=== PATIENT | female | born 1940 | race Caucasian/White ===

== ENCOUNTER → 2016-03-19 | Outpatient (CLI) | payer MEDICARE ==
[~2016-03-19] MED LIST: /AMIO20TA PO; /AMLO25TA PO; /ESOM40CA PO; /QUIN10TA PO; ACET50TA PO; ASPI1TAB PO; ASPI325T PO; ATEN25TA PO; B-6; BEN1.4DI TOP; BISO5TAB5 PO; CALCTAB22 PO; CLAR10CA3 PO; CLOP75TA2 PO; ELIQ5TAB PO; FLON0.054; ICY16LIQ TD; IMDU30TA PO; LEVO25TA2 PO; MIRA3350 PO; MIRALEX PO; MULTIVIT; NITR0.4S SL; OTC ALLERGY MED; PROBCAP13; PROT1TAB2 PO; SPIR25TA2 PO; TUMS500C PO; VITA50TA43 PO; VOLT1GEL TOP; VOLT1GEL24 TD; ZOLO25TA PO; [UNRECOGNIZED DRUG - OTHER]; [UNRECOGNIZED DRUG - OTHER] PO
[2016-03-19 10:06] LABS: ALBUMIN 3.6 GM/DL (3.2-5.2); ALBUMIN/GLOBULIN RATIO 1.16 (1.00-1.93); ALKALINE PHOSPHATASE 70 U/L (45-117); ALT/SGPT 21 U/L (12-78); ANION GAP 10 MEQ/L (8-16); AST/SGOT 17 U/L (15-37); BILIRUBIN,TOTAL 0.5 MG/DL (0.2-1.0); BLOOD UREA NITROGEN 17 MG/DL (7-18); CALCIUM LEVEL 8.9 MG/DL (8.8-10.2); CARBON DIOXIDE LEVEL 26 MEQ/L (21-32); CHLORIDE LEVEL 108 MEQ/L (98-107); CREATININE FOR GFR 0.92 MG/DL (0.55-1.02); GLOMERULAR FILTRATION RATE > 60.0 (>39); GLUCOSE, FASTING 135 MG/DL (83-110); MAGNESIUM LEVEL 2.1 MG/DL (1.8-2.4); POTASSIUM SERUM 4.3 MEQ/L (3.5-5.1); SODIUM LEVEL 144 MEQ/L (136-145); TOTAL PROTEIN 6.7 GM/DL (6.4-8.2)
== END ==
LOC: M LAB 09:17
PROVIDERS: ATTEND Physician Assistant
DX: I48.0 Paroxysmal atrial fibrillation (principal); I10 Essential (primary) hypertension

== ENCOUNTER → 2016-04-29 | Outpatient (CLI) | payer MEDICARE ==
[2016-04-29 08:22] LABS: MEAN CORPUSCULAR HEMOGLOBIN 31.6 pg (27.0-33.0); MEAN CORPUSCULAR HGB CONC 32.5 g/dl (32.0-36.5); MEAN CORPUSCULAR VOLUME 97.2 fl (80.0-96.0); RED CELL DISTRIBUTION WIDTH 13.9 % (11.5-14.5); WHITE BLOOD COUNT 4.9 K/mm3 (4.0-10.0)
== END ==
LOC: M LAB 07:23
PROVIDERS: ATTEND Physician Assistant
DX: I48.0 Paroxysmal atrial fibrillation (principal)

== ENCOUNTER → 2016-05-11 | Outpatient (CLI) | payer MEDICARE ==
[2016-05-11 08:02] LABS: FREE T4 1.05 NG/DL (0.76-1.46)
== END ==
LOC: M LAB 06:35
PROVIDERS: ATTEND Family Medicine
DX: E03.9 Hypothyroidism, unspecified (principal)

== ENCOUNTER → 2016-06-26 | Outpatient (CLI) | payer MEDICARE ==
[2016-06-26 12:16] LABS: MEAN CORPUSCULAR HEMOGLOBIN 31.2 pg (27.0-33.0); MEAN CORPUSCULAR HGB CONC 32.2 g/dl (32.0-36.5); MEAN CORPUSCULAR VOLUME 96.8 fl (80.0-96.0); RED CELL DISTRIBUTION WIDTH 14.2 % (11.5-14.5); WHITE BLOOD COUNT 4.9 K/mm3 (4.0-10.0)
[2016-06-26 12:56] LABS: ALBUMIN 3.5 GM/DL (3.2-5.2); ALBUMIN/GLOBULIN RATIO 1.06 (1.00-1.93); ALKALINE PHOSPHATASE 74 U/L (45-117); ALT/SGPT 23 U/L (12-78); ANION GAP 8 MEQ/L (8-16); AST/SGOT 17 U/L (15-37); BILIRUBIN,TOTAL 0.5 MG/DL (0.2-1.0); BLOOD UREA NITROGEN 15 MG/DL (7-18); CALCIUM LEVEL 8.5 MG/DL (8.8-10.2); CARBON DIOXIDE LEVEL 26 MEQ/L (21-32); CHLORIDE LEVEL 108 MEQ/L (98-107); FREE T4 1.25 NG/DL (0.76-1.46); GLOMERULAR FILTRATION RATE > 60.0 (>39); GLUCOSE, FASTING 110 MG/DL (83-110); POTASSIUM SERUM 4.4 MEQ/L (3.5-5.1); SODIUM LEVEL 142 MEQ/L (136-145); TOTAL PROTEIN 6.8 GM/DL (6.4-8.2)
== END ==
LOC: M LAB 11:09
PROVIDERS: ATTEND Family Medicine
DX: E03.9 Hypothyroidism, unspecified (principal)

== ENCOUNTER → 2016-10-14 | Outpatient (CLI) | payer MEDICARE ==
[~2016-10-14] MED LIST changes: +ASPI1TAB15 PO; +ASPI81TA85 PO; +CIME-49 PO; +DOXY100T PO; +FLON1SPR; +GLUC500T53 PO; +KEFL250C11 PO; +LEVO100T54 PO; +MAALSUS20 PO; +MIRA33504 PO; +NITR4TASL SL; +PANT40TA2 PO; +PEPT262S PO; +POLY1POW4 GT; +PRED20TA; +PROC2.5C PR; +PYRI100T2 PO; +QUIN5TAB7; +QUIN5TAB7 PO; +REGL5TAB2 PO; +TYLE325T5 PO; +VITA10002 PO; +VOLT1GEL15 TD; -VOLT1GEL24 TD; +ZOFR20TA PO; +iron PO
[2016-10-14 08:44] LABS: MEAN CORPUSCULAR HEMOGLOBIN 35.6 pg (27.0-33.0); MEAN CORPUSCULAR HGB CONC 33.6 g/dl (32.0-36.5); WHITE BLOOD COUNT 2.3 K/mm3 (4.0-10.0)
[2016-10-14 08:56] LABS: ALBUMIN 3.5 GM/DL (3.2-5.2); ALBUMIN/GLOBULIN RATIO 1.03 (1.00-1.93); ALKALINE PHOSPHATASE 64 U/L (45-117); ALT/SGPT 18 U/L (12-78); ANION GAP 9 MEQ/L (8-16); AST/SGOT 15 U/L (15-37); BILIRUBIN,TOTAL 0.7 MG/DL (0.2-1.0); BLOOD UREA NITROGEN 15 MG/DL (7-18); CALCIUM LEVEL 8.8 MG/DL (8.8-10.2); CARBON DIOXIDE LEVEL 27 MEQ/L (21-32); CHLORIDE LEVEL 108 MEQ/L (98-107); CHOLESTEROL LEVEL 211 MG/DL (<200); CREATININE FOR GFR 0.84 MG/DL (0.55-1.02); GLOMERULAR FILTRATION RATE > 60.0 (>39); GLUCOSE, FASTING 110 MG/DL (83-110); POTASSIUM SERUM 4.5 MEQ/L (3.5-5.1); SODIUM LEVEL 144 MEQ/L (136-145); TOTAL PROTEIN 6.9 GM/DL (6.4-8.2); TRIGLYCERIDES LEVEL 284 MG/DL (<150)
== END ==
LOC: M LAB 07:47
PROVIDERS: ATTEND Physician Assistant
DX: I48.2 Chronic atrial fibrillation (principal); I25.10 Atherosclerotic heart disease of native coronary artery without angina pectoris; E78.2 Mixed hyperlipidemia; I10 Essential (primary) hypertension

== ENCOUNTER 2016-10-17 10:56 | Inpatient (IN) | payer MEDICARE ==
[~2016-10-17] VITALS: Ht 162.6 cm; Wt 100.5 kg
[~2016-10-17 10:56] MED LIST changes: -ASPI1TAB15 PO; -ASPI81TA85 PO; -CIME-49 PO; -DOXY100T PO; -FLON1SPR; -GLUC500T53 PO; -KEFL250C11 PO; -LEVO100T54 PO; -MAALSUS20 PO; -MIRA33504 PO; -NITR4TASL SL; -PANT40TA2 PO; -PEPT262S PO; -POLY1POW4 GT; -PRED20TA; -PROC2.5C PR; -PYRI100T2 PO; -QUIN5TAB7; -QUIN5TAB7 PO; -REGL5TAB2 PO; -TYLE325T5 PO; -VITA10002 PO; -ZOFR20TA PO; -iron PO
[2016-10-17 12:02] LABS: ADD MANUAL DIFFER YES; DIFF SLIDE NUMBER 122; MEAN CORPUSCULAR HEMOGLOBIN 35.2 pg (27.0-33.0); MEAN CORPUSCULAR HGB CONC 34.1 g/dl (32.0-36.5); MEAN CORPUSCULAR VOLUME 103.3 fl (80.0-96.0); RED CELL DISTRIBUTION WIDTH 17.1 % (11.5-14.5); WHITE BLOOD COUNT 2.1 K/mm3 (4.0-10.0)
[2016-10-17 12:03] LABS: PLATELET COUNT, AUTOMATED 70 k/mm3 (150-450)
[2016-10-17 12:04] LABS: INR 1.14
[2016-10-17 12:24] LABS: ALBUMIN 3.6 GM/DL (3.2-5.2); ALBUMIN/GLOBULIN RATIO 1.03 (1.00-1.93); ALKALINE PHOSPHATASE 72 U/L (45-117); ALT/SGPT 22 U/L (12-78); ANION GAP 9 MEQ/L (8-16); AST/SGOT 24 U/L (15-37); BILIRUBIN,TOTAL 0.5 MG/DL (0.2-1.0); BLOOD UREA NITROGEN 18 MG/DL (7-18); CALCIUM LEVEL 9.1 MG/DL (8.8-10.2); CARBON DIOXIDE LEVEL 26 MEQ/L (21-32); CHLORIDE LEVEL 109 MEQ/L (98-107); CREATININE FOR GFR 0.82 MG/DL (0.55-1.02); GLOMERULAR FILTRATION RATE > 60.0 (>39); GLUCOSE, FASTING 136 MG/DL (83-110); POTASSIUM SERUM 4.7 MEQ/L (3.5-5.1); SODIUM LEVEL 144 MEQ/L (136-145); TOTAL PROTEIN 7.1 GM/DL (6.4-8.2)
[2016-10-17 13:05] LABS: EOSINOPHILS 3 % (0-5)
[2016-10-17 13:06] LABS: ANISOCYTOSIS 1+; PLATELET CLUMPS MODERATE AMT; POLYCHROMASIA 1+
[2016-10-17] MEDS: NS 1,000 ML IV SCH (14:01)
[2016-10-17] MEDS ORDERED: NITR4TASL SL (14:02)
[2016-10-17] MEDS ORDERED: TYLE325T5 PO (14:02)
[2016-10-17] MEDS ORDERED: SPIR25TA2 PO (14:02)
[2016-10-17] MEDS ORDERED: QUIN5TAB7 PO (14:02)
[2016-10-17] MEDS ORDERED: BISO5TAB5 PO (14:02)
[2016-10-17] MEDS ORDERED: CIME-49 PO (14:02)
[2016-10-17] MEDS ORDERED: GLUC500T53 PO (14:02)
[2016-10-17] MEDS ORDERED: PYRI100T2 PO (14:02)
[2016-10-17] MEDS ORDERED: PANT40TA2 PO (14:02)
[2016-10-17] MEDS ORDERED: LEVO100T54 PO (14:02)
[2016-10-17] MEDS ORDERED: ASPI1TAB15 PO (14:02)
[2016-10-17] MEDS ORDERED: ELIQ5TAB PO (14:02)
[2016-10-17] MEDS ORDERED: NITROGLYCERIN 0.4 MG SUBL TABLET SL PRN (14:15)
[2016-10-17] MEDS: ACETAMINOPHEN 325 MG TAB PO PRN ×2 (14:34→20:36)
[2016-10-17 16:35] VITALS: BP 132/60
[2016-10-17 19:09] VITALS: BP 120/70
[2016-10-17] MEDS: PANTOPRAZOLE 40MG INJ (PROTONIX) (C9113) IV SCH (20:35)
[2016-10-17] MEDS: BISOPROLOL FUMARATE 5 MG TAB PO SCH (20:36)
[2016-10-17 23:41] LABS: MEAN CORPUSCULAR HEMOGLOBIN 35.3 pg (27.0-33.0); MEAN CORPUSCULAR HGB CONC 33.7 g/dl (32.0-36.5); MEAN CORPUSCULAR VOLUME 104.9 fl (80.0-96.0); RED CELL DISTRIBUTION WIDTH 16.7 % (11.5-14.5); WHITE BLOOD COUNT 2.4 K/mm3 (4.0-10.0)
[2016-10-17 23:57] VITALS: BP 130/70
[2016-10-18 04:48] VITALS: BP 142/72
[2016-10-18 05:48] LABS: MEAN CORPUSCULAR HEMOGLOBIN 35.6 pg (27.0-33.0); MEAN CORPUSCULAR HGB CONC 33.5 g/dl (32.0-36.5); MEAN CORPUSCULAR VOLUME 106.2 fl (80.0-96.0); RED CELL DISTRIBUTION WIDTH 17.1 % (11.5-14.5); WHITE BLOOD COUNT 2.8 K/mm3 (4.0-10.0)
[2016-10-18 05:54] LABS: ANION GAP 8 MEQ/L (8-16); BLOOD UREA NITROGEN 12 MG/DL (7-18); CALCIUM LEVEL 8.5 MG/DL (8.8-10.2); CARBON DIOXIDE LEVEL 26 MEQ/L (21-32); CHLORIDE LEVEL 111 MEQ/L (98-107); CREATININE FOR GFR 0.86 MG/DL (0.55-1.02); GLOMERULAR FILTRATION RATE > 60.0 (>39); GLUCOSE, FASTING 95 MG/DL (83-110); POTASSIUM SERUM 4.1 MEQ/L (3.5-5.1); SODIUM LEVEL 145 MEQ/L (136-145)
--- NOTE | 2016-10-18 06:43 | CR ---
DATE OF CONSULTATION: 10/17/2016 REASON FOR CONSULTATION: Was gastrointestinal (GI) bleeding. HISTORY OF PRESENT ILLNESS: The patient is a 76-year-old female who has been on anticoagulation with aspirin as well as Eliquis as an outpatient for some atrial fibrillation. She presents with some epistaxis that happened a few days ago that was able to be controlled with pressure and presents with some bright red blood per rectum that occurred yesterday and then again this morning. Initially she had some darker stool after the epistaxis, but she is no longer complaining of dark stool, it is mostly bright red blood per rectum. She did have a barium enema about 10 or 11 years ago that showed some diverticulosis but no colonoscopy has been performed. No upper GI with small-bowel followthrough or upper endoscopy has been performed. She does have some GE reflux symptoms for which she takes a proton pump inhibitor. She has been nervous about having an endoscopy performed because sedating medications make her unfocused. In any case, she presents now for additional recommendations concerning this. She does not complain of any abdominal pain at this time, has not had no nausea, no vomiting, no fevers, no chills. She does not have any history of diverticulitis. She presents with a pancytopenia of undetermined etiology. PAST MEDICAL HISTORY: Significant for history of hypertension, history of atrial fibrillation, history of arthritis, history of GE reflux. MEDICATIONS: Include: - quinapril - glucosamine - cimetidine - spironolactone - vitamin B6 - pantoprazole - aspirin - Eliquis PHYSICAL EXAMINATION: Reveals a 76-year-old female who looks her stated age. HEENT is unremarkable. Neck: Supple without adenopathy. Lungs are clear to auscultation. Heart is regular with multiple irregular beats. Abdomen is soft, nontender, nondistended. No masses are appreciated. IMPRESSION AND PLAN: Patient has GI bleed most likely secondary to a lower GI source, although with her pancytopenia this needs to be resolved prior to proceeding with an upper or lower endoscopy. I would recommend an upper and lower endoscopy for her at some point but without resolution of this pancytopenia and specifically this thrombocytopenia, my concern is with the minimal amount of aspirin that she is on she will have no significant platelet function whatsoever. And thus we may have to wait up to a week before proceeding with endoscopy, unless this resolves over the ensuing few days. The Eliquis itself should be worked out of the system within the next 48 hours and depending on how she does, we may proceed with an upper and lower endoscopy prior to discharge but for now she can start on a clear liquid diet. If she is doing well and her hematocrit is stable overnight, she can start on a regular diet tomorrow. If she does well with this and her hematocrit is stable, she could be discharged home and then we could followup with an outpatient endoscopy in the near future. Otherwise she can stay in house and later on this week we can plan on an upper and lower endoscopy and we will try to be flexible about the timing of that as well.
--- NOTE | 2016-10-18 07:57 | ECGEPIP ---
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
[2016-10-18 08:00] VITALS: BP 130/72
[2016-10-18] MEDS: BISOPROLOL FUMARATE 5 MG TAB PO SCH ×2 (08:06→20:15)
[2016-10-18] MEDS: PANTOPRAZOLE 40MG INJ (PROTONIX) (C9113) IV SCH ×2 (08:06→20:20)
[2016-10-18] MEDS: LEVOTHYROXINE 100MCG TABLET (0.1MG) PO SCH (08:06)
[2016-10-18 08:56] LABS: PLTBLUE- EDTA FREE CALC 55 K/mm3 (172-450); PLTBLUE- EDTA FREE MACHINE 50 K/mm3 (172-450)
[2016-10-18 09:31] LABS: REASON FOR REVIEW COMPREHENSIVE REVIEW
[2016-10-18 11:09] VITALS: BP 118/60
[2016-10-18 11:22] LABS: MEAN CORPUSCULAR HEMOGLOBIN 35.8 pg (27.0-33.0); MEAN CORPUSCULAR HGB CONC 34.1 g/dl (32.0-36.5); MEAN CORPUSCULAR VOLUME 104.9 fl (80.0-96.0); RED CELL DISTRIBUTION WIDTH 17.1 % (11.5-14.5); WHITE BLOOD COUNT 2.1 K/mm3 (4.0-10.0)
[2016-10-18] MEDS: NS 1,000 ML IV SCH (12:30)
[2016-10-18 16:00] VITALS: BP 132/60
--- NOTE | 2016-10-18 17:39 | IPN ---
DATE: 10/18/2016 SUBJECTIVE: The patient is seen and examined in the room today. The patient has been walking around the hallway in the morning. Denies any recurrence of symptoms. Since admission, the patient denied any blood in the stool. She states she is actually feeling better than before the admission. OBJECTIVE: VITAL SIGNS: Temperature is 96.1, pulse 57, respirations 19, blood pressure 130/72, pulse oximetry 94% on room air. GENERAL: No sign of acute distress. Alert and oriented times three. HEENT: Normocephalic, atraumatic. Extraocular motor grossly intact. CARDIOVASCULAR: Irregularly irregular. Positive S1, S2. LUNGS: Clear to auscultation bilaterally. ABDOMEN: Soft. Nontender. EXTREMITIES: No edema. No cyanosis. LABORATORY DATA: WBC 2.8, hemoglobin 10.8, hematocrit 32.3, platelet count 55. Sodium 145, potassium 4.1, chloride 111, carbon dioxide 26, BUN 12, creatinine 0.86, GFR greater than 60, fasting glucose 95, calcium 8.5. ASSESSMENT AND PLAN: 1. Acute lower gastrointestinal (GI) bleed. Aspirin and Eliquis have been discontinued. The patient is monitored on telemetry. The patient's hemoglobin and hematocrit have been followed every six hours. At this moment, there is no significant decrease of hemoglobin or hematocrit. Since admission, the patient does not have any bowel movements. 2. Pancytopenia, especially with severe leukopenia and thrombocytopenia. Yesterday night and this morning, the patient's platelet count cannot be calculated. Ethylenediaminetetraacetic acid (EDTA) solution had to be used. Repeated tests showed the patient's had platelet count is 55. We will obtain a peripheral smear. Unfortunately, pathologist not available at this moment. We will follow with the results tomorrow. 3. Atrial fibrillation on Zebeta. Rate is in the satisfactory range. Eliquis discontinued due to acute GI bleed. 4. Gastroesophageal reflux disease, on Protonix. 5. Hypothyroidism, on Synthroid. 6. History of hypertension on Zebeta. 7. Deep venous thrombosis (DVT) prophylaxis. The patient had acute GI bleed. No anticoagulation is warranted at this moment. Patient has knee-high thromboembolism deterrent stockings (TEDs) and sequentials.
[2016-10-18 20:00] VITALS: BP 159/74
[2016-10-18] MEDS: ACETAMINOPHEN 325 MG TAB PO PRN (20:23)
--- NOTE | 2016-10-18 21:38 | HPE ---
DATE OF ADMISSION: 10/17/2016 CHIEF COMPLAINT: 76-year-old female coming in complaining of history of epistaxis and GI bleeding three days ago, and new onset of GI bleeding today. HISTORY OF PRESENT ILLNESS: This is a 76-year-old female with significant past medical history of coronary artery disease, atrial fibrillation with medication aspirin and Eliquis as patient has a history of eight stents in the past with comorbidities of hypothyroidism, gastroesophageal reflux disease, hypertension, who presented complaining of epistaxis three days, which resolved with pressure along with bright red per rectum bleed times two three days ago, in addition times two this morning. Patient denies any fever, chills, cough, sputum production, abdominal pain, diarrhea or dysuria. Patient also denies any shortness of breath, chest pain or dizziness associated with this as well. Patient other than having bright red per rectum denies of any complaint of the epistaxis, and that occurred three days ago as well. Patient was evaluated in the emergency room, noted to have anemia of 10.7 and 31.2 which did not change significantly from the previous lab that was done a couple of days ago. In addition, hemoccult that was positive for blood and hemorrhoid. Dr. Otero was consulted by the ER physician. I have also spoken to Dr. Otero who is willing to follow along with this regarding patient's care. Patient denies of any history of thrombocytopenia. Currently patient is resting comfortably in the emergency room with the family at this bed side. The patient denies any over the counter medication such as naproxen, NSAIDs. Patient also denies of any alcohol abuse or use. REVIEW OF SYSTEMS: 10-point review of systems is negative except for this described in the history of present illness. PAST MEDICAL HISTORY: Significant for coronary artery disease, atrial fibrillation, hyperthyroidism, gastroesophageal reflux disease, hypertension. PAST SURGICAL HISTORY: Includes eight stents in the past, cholecystectomy and tonsillectomy. SOCIAL HISTORY: Patient denies smoking, drinking or drug abuse. FAMILY HISTORY: Non-contributory due to patient's age. ALLERGIES: Patient is allergic to CODEINE, MORPHINE, and PROPOXYPHENE and XANTHIOL. Patient statues that general anesthesia causes her to hallucinate and see into the future mainly for her children. Currently no visual hallucination. Again denies of any alcohol use at home. Patient at home takes - acetaminophen 325 mg two tablets by mouth every 6 hours as needed for pain - Eliquis 5mg by mouth twice a day - aspirin 81 mg by mouth daily - bisoprolol 5 mg by mouth twice a day - cimetidine 400 mg by mouth daily - glucosamine 500 mg by mouth twice a day - levothyroxine 100 mcg by mouth daily - Nitrostat 0.4 mg sublingual as needed for chest pain - pantoprazole 40 mg by mouth daily - vitamin D 600 mg by mouth daily - Quinapril 2.5 mg by mouth at bedtime - spironolactone 12.5 mg by mouth daily PHYSICAL EXAMINATION: VITAL SIGNS temperature 96.8, heart rate of 62 currently, last respiratory rate of 20, currently 18 on my examination. Blood pressure last known is 125/63. Orthostatic showed blood pressure 145/61, with heart rate of 91, supine blood pressure 149/65 with heart rate of 93 sitting. Standing patients blood pressure is 148/67 with a heart rate of 94. Patient is saturating above 90% on room air, currently saturating 96%. HEENT: Normocephalic, atraumatic. Inspection of the eyes, nose and throat is within normal. Pupils equal, round, and reactive to light and accommodation. Mucosa is moist. NECK: Supple. No tracheal deviation. CARDIAC: S1, S2. Regular rate and rhythm. Pulses present. LUNGS: Equal air entry. I did not hear any wheezes, rales or rhonchi. ABDOMEN: Soft, nontender. Bowel sounds present. No guarding, no rigidity. No peritoneal sign. EXTREMITIES: Lower extremities with no significant pitting edema. Capillary refill present in four extremities. SKIN: Intact, warm to touch. Afebrile. NEUROLOGIC: The patient is currently awake, alert, and oriented times three. Cranial nerves grossly intact. Motor and sensory is intact. Normal mood and affect for current situation. Daughter at the bed side. DIAGNOSTICS: Patient had WBC of 2.2, H H 10.7/31.2, platelet count of 70. Currently not actively bleeding. Complete metabolic profile is within normal except for glucose of 136 and <<5:25>> of 109. Cardiac enzyme: Troponin are within normal as well. Coagulation studies: INR and PTT is within normal, PT is 14.8. Patient did have a previous lab work done in October 14 of this year which is only three days ago. Patient's WBC was 2.3 at that time, H H 10.3/30.7, platelet count of 65. No microbiology or imaging for me to review at this time. ASSESSMENT AND PLAN: This is a pleasant 76-year-old female with significant past medical history of coronary artery disease, atrial fibrillation on aspirin and Plavix as patient has history of eight stents in the past, follows Dr. Alicea as an outpatient for her cardiac issues with comorbidities of hypothyroidism, gastroesophageal reflux disease and hypertension who presented complaining of epistaxis and GI bleeding three days ago, and repeat GI bleeding today. 1. Lower GI bleeding most likely secondary due to anticoagulation therapy of aspirin and Eliquis. Patient will be monitored on telemetry. We will get serial cardiac enzymes, transfuse platelet and red blood cell as needed. Consent in the chart. Occult stool for further evaluation. Protonix. Patient has been typed and screened. I had spoken to Dr. Otero who is willing to co-manage patient with us. Patient did not seem to have history of thrombocytopenia or leukopenia. I suspect this is secondary due to current issue. But looking at the liver function, it is within normal. INR is within normal. I do not suspect liver disease to help contribute to immunoglobulinopathy such as thrombocytopenia. We will continue to treat as mentioned above and monitor. Hematology/Oncology consult PRN. 2. Coronary artery disease and atrial fibrillation. Hold aspirin and Eliquis. We will utilize bisoprolol with parameters. Defer statin therapy to cardiology. 3. Hypertension. Bisoprolol with parameters. At this time we will hold lisinopril and spironolactone for now and re-initiate as needed. 4. Hypothyroidism. Resume levothyroxine. 5. Gastroesophageal reflux disease. Protonix. 6. Sequential compression devices (SCDs) for deep vein thrombosis prophylaxis. [facility]
[2016-10-18 23:59] VITALS: BP 147/67
[2016-10-19 04:00] VITALS: BP 156/76
[2016-10-19 05:38] LABS: MEAN CORPUSCULAR HEMOGLOBIN 35.5 pg (27.0-33.0); MEAN CORPUSCULAR VOLUME 104.3 fl (80.0-96.0); RED CELL DISTRIBUTION WIDTH 17.3 % (11.5-14.5); WHITE BLOOD COUNT 2.1 K/mm3 (4.0-10.0)
[2016-10-19 05:43] LABS: PLTBLUE- EDTA FREE CALC 85 K/mm3 (172-450); PLTBLUE- EDTA FREE MACHINE 77 K/mm3 (172-450)
[2016-10-19 05:46] LABS: ANION GAP 9 MEQ/L (8-16); BLOOD UREA NITROGEN 16 MG/DL (7-18); CALCIUM LEVEL 8.4 MG/DL (8.8-10.2); CARBON DIOXIDE LEVEL 25 MEQ/L (21-32); CHLORIDE LEVEL 111 MEQ/L (98-107); CREATININE FOR GFR 0.84 MG/DL (0.55-1.02); GLOMERULAR FILTRATION RATE > 60.0 (>39); GLUCOSE, FASTING 112 MG/DL (83-110); POTASSIUM SERUM 3.9 MEQ/L (3.5-5.1); SODIUM LEVEL 145 MEQ/L (136-145)
[2016-10-19] MEDS: SLF 3 ML SYR IV SCH ×3 (05:56→21:05)
[2016-10-19] MEDS ORDERED: SLF 3 ML SYR IV PRN (06:00)
[2016-10-19 08:00] VITALS: BP 145/67
[2016-10-19] MEDS: ACETAMINOPHEN 325 MG TAB PO PRN ×2 (08:29→20:52)
[2016-10-19] MEDS: LEVOTHYROXINE 100MCG TABLET (0.1MG) PO SCH (08:35)
[2016-10-19] MEDS: PANTOPRAZOLE 40MG INJ (PROTONIX) (C9113) IV SCH ×2 (08:35→20:53)
[2016-10-19] MEDS: BISOPROLOL FUMARATE 5 MG TAB PO SCH ×2 (08:35→20:53)
[2016-10-19 11:22] LABS: RETIC HEMOGLOBIN CONTENT CHr 39.7 PG (24-36)
[2016-10-19 11:40] LABS: PERCENT SATURATION 55.7 % (13.2-45.0)
[2016-10-19 12:00] VITALS: BP 134/75
[2016-10-19 16:00] VITALS: BP 128/73
[2016-10-19] MEDS: NS 1,000 ML IV SCH (16:22)
--- NOTE | 2016-10-19 19:27 | IPN ---
DATE: 10/19/2016 SUBJECTIVE: The patient is seen and examined in the room today. Per patient, the patient had one episode of bowel movement, which was completely bright red. Denies any fatigue or lightheadedness. The patient had a chance to walk around the hallway to gain some more exercise. No issues with ambulation. OBJECTIVE: VITAL SIGNS: Temperature 97.6, pulse is 65, respirations 18, blood pressure 145/67, pulse oximetry is 97% in room air. GENERAL: No sign of acute distress. Alert and oriented times three. HEENT: Normocephalic, atraumatic. Extraocular motor grossly intact. CARDIOVASCULAR: Irregularly irregular. Positive S1, S2. LUNGS: Clear to auscultation bilaterally. ABDOMEN: Soft, nontender, nondistended. Bowel sounds present. No rebound, no guarding. EXTREMITIES: No edema, no cyanosis. LABORATORY DATA: WBC is 2.1, hemoglobin 9.5, hematocrit is 27.8, platelet count is 85. Sodium is 145, potassium is 3.9, chloride is 111, carbon dioxide 25, BUN 16, creatinine 0.84, GFR greater than 60. ASSESSMENT AND PLAN: 1. Acute gastrointestinal (GI) bleed. Patient still has bright red blood per rectum in the last 24 hours. Aspirin and Eliquis have been discontinued. Patient monitored on telemetry. Will continue to follow with hemoglobin and hematocrit every 6 hours. This morning, the patient showed a drop of hemoglobin and hematocrit. Will continue to observe the patient on telemetry. 2. Pancytopenia with severe leukopenia and thrombocytopenia. Peripheral smear was performed. I discussed the case with the pathologist. She does not see any blasts. It did have clumping of the platelet cell count. In the future, we may need to continue to order EDTA-free solution for more accurate platelet calculations. 3. Atrial fibrillation. On Zebeta. Rate controlled. Eliquis discontinued due to gastrointestinal (GI) bleed. 4. Gastroesophageal reflux disease. On Protonix. 5. Hypothyroidism. On Synthroid. 6. History of deep vein thrombosis (DVT). Due to acute GI bleed, the patient is on thromboembolism deterrents (TEDS), sequential compression device.
[2016-10-19 20:00] VITALS: BP 126/60
[2016-10-19 23:59] VITALS: BP 122/60
[2016-10-20 04:00] VITALS: BP 140/68
[2016-10-20] MEDS: NS 1,000 ML IV SCH ×2 (04:51→16:04)
[2016-10-20] MEDS: SLF 3 ML SYR IV SCH ×3 (04:52→21:28)
[2016-10-20 05:42] LABS: MEAN CORPUSCULAR HEMOGLOBIN 35.7 pg (27.0-33.0); MEAN CORPUSCULAR VOLUME 104.9 fl (80.0-96.0); RED CELL DISTRIBUTION WIDTH 16.5 % (11.5-14.5); WHITE BLOOD COUNT 2.6 K/mm3 (4.0-10.0)
[2016-10-20 05:49] LABS: ANION GAP 8 MEQ/L (8-16); BLOOD UREA NITROGEN 14 MG/DL (7-18); CALCIUM LEVEL 8.8 MG/DL (8.8-10.2); CARBON DIOXIDE LEVEL 25 MEQ/L (21-32); CHLORIDE LEVEL 112 MEQ/L (98-107); CREATININE FOR GFR 0.78 MG/DL (0.55-1.02); GLOMERULAR FILTRATION RATE > 60.0 (>39); GLUCOSE, FASTING 106 MG/DL (83-110); SODIUM LEVEL 145 MEQ/L (136-145)
[2016-10-20 06:20] LABS: PLTBLUE- EDTA FREE CALC 75 K/mm3 (172-450); PLTBLUE- EDTA FREE MACHINE 68 K/mm3 (172-450)
[2016-10-20] MEDS: LEVOTHYROXINE 100MCG TABLET (0.1MG) PO SCH (07:46)
[2016-10-20 08:00] VITALS: BP 130/71
[2016-10-20] MEDS: BISOPROLOL FUMARATE 5 MG TAB PO SCH ×2 (08:36→21:29)
[2016-10-20] MEDS: PANTOPRAZOLE 40MG INJ (PROTONIX) (C9113) IV SCH ×2 (08:37→21:29)
[2016-10-20] MEDS: CYANOCOBALAMIN 500 MCG TAB PO SCH (09:15)
[2016-10-20] MEDS: MULTIVITAMINS/MINERALS THERAP 1 TAB PO SCH ×2 (09:15→21:27)
[2016-10-20 12:00] VITALS: BP 150/78
[2016-10-20] MEDS: ACETAMINOPHEN 325 MG TAB PO PRN ×2 (14:13→21:29)
[2016-10-20 16:00] VITALS: BP 124/56
--- NOTE | 2016-10-20 17:59 | IPNPDOC ---
Subjective Date Seen The patient was seen on 10/20/16. Subjective Chief Complaint/HPI Patient seen and examined at the bedside. States that she did have a bright red bloody bowel movement this morning. Denies any acute complaints of lightheadedness, dizziness, chest pain, or any shortness of breath. Objective Physical Examination General Exam: Positive: Alert, Cooperative, No Acute Distress ENT Exam: Positive: Atraumatic, Mucous membr. moist/pink Neck Exam: Negative: JVD Chest Exam: Positive: Clear to auscultation, Normal air movement Heart Exam: Positive: Rate Normal, Irregular Rhythm Abdomen Exam: Positive: Soft, Negative: Tenderness Psych Exam: Positive: Oriented x 3 Assessment /Plan Plan/VTE VTE Prophylaxis Ordered?: Yes Plan Acute gastrointestinal (GI) bleed Patient still having bright red blood per rectum--states that she had a bloody BM this morning Aspirin and Eliquis have been discontinued since admission. Hemoglobin has dropped this AM from 10-->9 Blood pressure remains stable We will continue to monitor H&H every 6 hours. Surgery on board--Dr. Otero will tentatively scheduled the patient for endoscopy/colonoscopy for , 10/22/16 Pancytopenia with Anemia, Leukopenia and Thrombocytopenia. Peripheral smear with no acute findings. My colleague Dr. Ybarra did discuss the case with the pathologist, and there not any blasts noted. Vitamin B12 level was noted to be low (205)--and this may be the contributing factor, as the patient does have Macrocytic Anemia Vitamin B12 supplementation has been added We will transfuse the patient as needed and continue to monitor her CBC Atrial fibrillation, stable Rate controlled On Zebeta Eliquis discontinued due to gastrointestinal (GI) bleed. The increased risk of CVA, PE, DVT, [place], and clotting in general discussed with the patient and her daughter at the bedside--they have acknowledged the inherent risks with holding AC and antiplatelet therapy, questions answered to satisfaction History of CAD with Multiple Stents in the past (None over the past 1 year according to patient) ASA on hold Cont Bisoprolol Not on Statin? Will defer to the patient's PCP Gastroesophageal reflux disease Cont Protonix. Hypothyroidism Cont Synthroid. History of deep vein thrombosis (DVT). On Thromboembolism deterrents (TEDS), sequential compression device. VS, I&O, 24H, Fishbone Vital Signs/I&O Vital Signs Date Time Temp Pulse Resp B/P (MAP) Pulse Ox O2 Delivery O2 Flow Rate FiO2 10/20/16 16:00 98.1 64 18 124/56 (78) 96 Room Air I&O- Last 24 Hours up to 6 AM 10/20/16 06:00 Intake Total 800 ml Output Total 100 ml Balance 700 ml Laboratory Data 24H LABS Laboratory Tests 2 10/20/16 05:11: Platelet Count, EDTA Free 75L, Anion Gap 8, Glomerular Filtration Rate > 60.0, Blood Urea Nitrogen 14, Creatinine 0.78, Sodium Level 145, Potassium Level 4.0, Chloride Level 112H, Carbon Dioxide Level 25, Calcium Level 8.8 CBC/BMP Laboratory Tests 10/20/16 05:11 Red Blood Count 2.80 L, Mean Corpuscular Volume 104.9 H, Mean Corpuscular Hemoglobin 35.7 H, Mean Corpuscular Hemoglobin Concent 34.0, Red Cell Distribution Width 16.5 H, Calcium Level 8.8 10/20/16 13:35 HELEN HOBSON MD Oct 20, 2016 17:59
[2016-10-20 19:28] VITALS: BP 138/63
--- NOTE | 2016-10-20 19:28 | REP ---
Bilateral lower extremity Duplex Doppler venous ultrasound: Real time compression and duplex Doppler interrogation of the bilateral lower extremity deep venous system is performed. Bilaterally, the common femoral, superficial femoral and popliteal veins are fully compressible with transducer pressure and demonstrate normal spontaneous and phasic flow, without evidence of deep venous thrombosis. Impression: No evidence of deep venous thrombosis of the bilateral lower extremity femoral popliteal venous system. Signed by Gerard Kurtz MD 10/20/2016 07:20 P
[2016-10-20 23:45] VITALS: BP 152/67
[2016-10-21 03:47] VITALS: BP 149/68
[2016-10-21] MEDS: NS 1,000 ML IV SCH (03:56)
[2016-10-21] MEDS: SLF 3 ML SYR IV SCH ×3 (03:56→21:09)
[2016-10-21 06:16] LABS: MEAN CORPUSCULAR HEMOGLOBIN 35.8 pg (27.0-33.0); MEAN CORPUSCULAR VOLUME 105.5 fl (80.0-96.0); RED CELL DISTRIBUTION WIDTH 17.2 % (11.5-14.5); WHITE BLOOD COUNT 1.6 K/mm3 (4.0-10.0)
[2016-10-21 06:23] LABS: PLTBLUE- EDTA FREE CALC 76 K/mm3 (172-450); PLTBLUE- EDTA FREE MACHINE 69 k/mm3 (172-450)
[2016-10-21 06:26] LABS: ANION GAP 10 MEQ/L (8-16); BLOOD UREA NITROGEN 13 MG/DL (7-18); CALCIUM LEVEL 7.9 MG/DL (8.8-10.2); CARBON DIOXIDE LEVEL 22 MEQ/L (21-32); CHLORIDE LEVEL 116 MEQ/L (98-107); CREATININE FOR GFR 0.68 MG/DL (0.55-1.02); GLOMERULAR FILTRATION RATE > 60.0 (>39); GLUCOSE, FASTING 94 MG/DL (83-110); POTASSIUM SERUM 3.8 MEQ/L (3.5-5.1); SODIUM LEVEL 148 MEQ/L (136-145)
[2016-10-21 08:00] VITALS: BP 139/73
[2016-10-21] MEDS: LEVOTHYROXINE 100MCG TABLET (0.1MG) PO SCH (08:46)
[2016-10-21] MEDS: BISOPROLOL FUMARATE 5 MG TAB PO SCH ×2 (08:46→21:09)
[2016-10-21] MEDS: MULTIVITAMINS/MINERALS THERAP 1 TAB PO SCH ×2 (08:46→21:00)
[2016-10-21] MEDS: CYANOCOBALAMIN 500 MCG TAB PO SCH (08:46)
[2016-10-21] MEDS: PANTOPRAZOLE 40MG INJ (PROTONIX) (C9113) IV SCH ×2 (08:46→21:09)
[2016-10-21] MEDS ORDERED: GOLYTELY SOLN 4000 ML BTL PO ONE (09:15)
[2016-10-21] MEDS ORDERED: MOM 30ML SUSPENSION UDC PO ONE (09:15)
[2016-10-21] MEDS: ACETAMINOPHEN 325 MG TAB PO PRN ×3 (09:52→21:58)
[2016-10-21 13:53] LABS: INR 1.01
[2016-10-21 14:00] VITALS: BP 136/77
--- NOTE | 2016-10-21 14:42 | IPNPDOC ---
Subjective Date Seen The patient was seen on 10/21/16. Subjective Chief Complaint/HPI Patient seen and examined at the bedside. States that she has yet to have a bowel movement this morning, and has not had one since yesterday morning when she had an episode of bright red blood. Denies any acute complaints of abdominal pain at this time. Objective Physical Examination General Exam: Positive: Alert, Cooperative, No Acute Distress ENT Exam: Positive: Atraumatic, Mucous membr. moist/pink Neck Exam: Negative: JVD Chest Exam: Positive: Clear to auscultation, Normal air movement Heart Exam: Positive: Rate Normal, Irregular Rhythm Abdomen Exam: Positive: Soft, Negative: Tenderness Psych Exam: Positive: Oriented x 3 Assessment /Plan Plan/VTE VTE Prophylaxis Ordered?: Yes Plan Acute gastrointestinal (GI) bleed Patient has not had a BM this morning Aspirin and Eliquis have been discontinued since admission. Hemoglobin stable ~9 today Blood pressure remains stable We will continue to monitor H&H every 6 hours. Surgery on board--Dr. Otero will tentatively scheduled the patient for endoscopy/colonoscopy for , 10/22/16 Pancytopenia with Anemia, Leukopenia and Thrombocytopenia. Peripheral smear with no acute findings. My colleague Dr. Ybarra did discuss the case with the pathologist, and there not any blasts noted. Vitamin B12 level was noted to be low (205)--and this may be the contributing factor, as the patient does have Macrocytic Anemia Methylmalonic acid level, Homocysteine level pending Vitamin B12 supplementation has been added Autoimmune work up also ordered to r/o other etiologies of Pancytopenia We will transfuse the patient as needed and continue to monitor her CBC Atrial fibrillation, stable Rate controlled On Zebeta Eliquis discontinued due to gastrointestinal (GI) bleed. The increased risk of CVA, PE, DVT, [place], and clotting in general discussed with the patient and her daughter at the bedside--they have acknowledged the inherent risks with holding AC and antiplatelet therapy, questions answered to satisfaction History of CAD with Multiple Stents in the past (None over the past 1 year according to patient) ASA on hold Cont Bisoprolol Not on Statin? Will defer to the patient's PCP Gastroesophageal reflux disease Cont Protonix. Hypothyroidism Cont Synthroid. History of deep vein thrombosis (DVT). On Thromboembolism deterrents (TEDS), sequential compression device. VS, I&O, 24H, Fishbone Vital Signs/I&O Vital Signs Date Time Temp Pulse Resp B/P (MAP) Pulse Ox O2 Delivery O2 Flow Rate FiO2 10/21/16 08:00 97.6 63 18 139/73 (95) 97 Room Air I&O- Last 24 Hours up to 6 AM 10/21/16 05:59 Intake Total 2520 ml Output Total 1100 ml Balance 1420 ml Laboratory Data 24H LABS Laboratory Tests 2 10/21/16 05:25: Platelet Count, EDTA Free 76L, Anion Gap 10, Glomerular Filtration Rate > 60.0, Blood Urea Nitrogen 13, Creatinine 0.68, Sodium Level 148H, Potassium Level 3.8 , Chloride Level 116H, Carbon Dioxide Level 22, Calcium Level 7.9L 10/21/16 13:28: Prothrombin Time 13.4, Prothromb Time International Ratio 1.01, Activated Partial Thromboplast Time 27.7, Fibrinogen 361, Lactate Dehydrogenase 268H CBC/BMP Laboratory Tests 10/20/16 21:04 10/21/16 05:25 Red Blood Count 2.40 L, Mean Corpuscular Volume 105.5 H, Mean Corpuscular Hemoglobin 35.8 H, Mean Corpuscular Hemoglobin Concent 34.0, Red Cell Distribution Width 17.2 H, Calcium Level 7.9 L 10/21/16 13:28 HELEN HOBSON MD Oct 21, 2016 14:42
[2016-10-21 14:53] LABS: BANDS 1 % (< 11)
[2016-10-21 14:56] LABS: ANISOCYTOSIS 2+; PLATELET CLUMPS MODERATE AMT
[2016-10-21 16:00] VITALS: BP 149/81
[2016-10-21 20:33] VITALS: BP 148/67
[2016-10-21 23:59] VITALS: BP 144/67
[2016-10-22] MEDS: SLF 3 ML SYR IV SCH ×3 (04:06→21:18)
[2016-10-22 04:34] VITALS: BP 138/63
[2016-10-22 06:56] LABS: MEAN CORPUSCULAR HEMOGLOBIN 36.4 pg (27.0-33.0); MEAN CORPUSCULAR HGB CONC 34.7 g/dl (32.0-36.5); MEAN CORPUSCULAR VOLUME 105.2 fl (80.0-96.0); RED CELL DISTRIBUTION WIDTH 16.8 % (11.5-14.5)
[2016-10-22 06:59] LABS: PLTBLUE- EDTA FREE CALC 97 K/mm3 (172-450); PLTBLUE- EDTA FREE MACHINE 88 k/mm3 (172-450)
[2016-10-22 07:12] LABS: ANION GAP 9 MEQ/L (8-16); BLOOD UREA NITROGEN 8 MG/DL (7-18); CALCIUM LEVEL 8.6 MG/DL (8.8-10.2); CARBON DIOXIDE LEVEL 25 MEQ/L (21-32); CHLORIDE LEVEL 110 MEQ/L (98-107); CREATININE FOR GFR 0.82 MG/DL (0.55-1.02); GLOMERULAR FILTRATION RATE > 60.0 (>39); GLUCOSE, FASTING 111 MG/DL (83-110); POTASSIUM SERUM 3.7 MEQ/L (3.5-5.1); SODIUM LEVEL 144 MEQ/L (136-145)
[2016-10-22 07:22] LABS: PLATELET CLUMPS LARGE AMT
[2016-10-22 07:23] LABS: ANISOCYTOSIS 1+
[2016-10-22 08:00] VITALS: BP 156/76
[2016-10-22] MEDS: ACETAMINOPHEN 325 MG TAB PO PRN ×2 (10:27→21:15)
[2016-10-22] MEDS: MULTIVITAMINS/MINERALS THERAP 1 TAB PO SCH ×2 (10:27→21:15)
[2016-10-22] MEDS: PANTOPRAZOLE 40MG INJ (PROTONIX) (C9113) IV SCH ×2 (10:27→21:18)
[2016-10-22] MEDS: CYANOCOBALAMIN 500 MCG TAB PO SCH (10:28)
[2016-10-22] MEDS: BISOPROLOL FUMARATE 5 MG TAB PO SCH ×2 (10:28→21:18)
[2016-10-22] MEDS: LEVOTHYROXINE 100MCG TABLET (0.1MG) PO SCH (10:29)
[2016-10-22 12:00] VITALS: BP 139/67
--- NOTE | 2016-10-22 12:12 | IPNPDOC ---
Subjective Date Seen The patient was seen on 10/22/16. Subjective Chief Complaint/HPI Patient seen and examined at the bedside this morning. States that she has no acute complaints at this time. Denies any more bloody bowel movements. Objective Physical Examination General Exam: Positive: Alert, Cooperative, No Acute Distress ENT Exam: Positive: Atraumatic, Mucous membr. moist/pink Neck Exam: Negative: JVD Chest Exam: Positive: Clear to auscultation, Normal air movement Heart Exam: Positive: Rate Normal, Irregular Rhythm Abdomen Exam: Positive: Soft, Negative: Tenderness Psych Exam: Positive: Oriented x 3 Assessment /Plan Plan/VTE VTE Prophylaxis Ordered?: Yes Plan Acute gastrointestinal (GI) bleed Denies any bloody BM in the last 24hrs Aspirin and Eliquis have been discontinued since admission. Hemoglobin stable ~9-10 Blood pressure remains stable Surgery on board--Scheduled the for endoscopy/colonoscopy today Pancytopenia with Anemia, Leukopenia and Thrombocytopenia. Peripheral smear with no acute findings. My colleague Dr. Ybarra did discuss the case with the pathologist, and there not any blasts noted. Vitamin B12 level was noted to be low (205)--and this may be the contributing factor, as the patient does have Macrocytic Anemia Methylmalonic acid level, Homocysteine level pending Vitamin B12 supplementation has been added Autoimmune work up also ordered to r/o other etiologies of Pancytopenia We will transfuse the patient as needed and continue to monitor her CBC Hematology consulted Atrial fibrillation, stable Rate controlled On Zebeta Eliquis discontinued due to gastrointestinal (GI) bleed. The increased risk of CVA, PE, DVT, TX, and clotting in general discussed with the patient and her daughter at the bedside--they have acknowledged the inherent risks with holding AC and antiplatelet therapy, questions answered to satisfaction History of CAD with Multiple Stents in the past (None over the past 1 year according to patient) ASA on hold Cont Bisoprolol Not on Statin? Will defer to the patient's PCP Gastroesophageal reflux disease Cont Protonix. Hypothyroidism Cont Synthroid. History of deep vein thrombosis (DVT). On Thromboembolism deterrents (TEDS), sequential compression device. VS, I&O, 24H, Fishbone Vital Signs/I&O Vital Signs Date Time Temp Pulse Resp B/P (MAP) Pulse Ox O2 Delivery O2 Flow Rate FiO2 10/22/16 10:28 60 156/76 10/22/16 08:00 98.7 18 96 Room Air I&O- Last 24 Hours up to 6 AM 10/22/16 05:59 Intake Total 2100 ml Output Total 1600 ml Balance 500 ml Laboratory Data 24H LABS Laboratory Tests 2 10/21/16 13:28: Neutrophils 27L, Band Neutrophils 1, Lymphocytes (Manual) 69H, Monocytes (Manual ) 2, Atypical Lymphocytes 1, Platelet Estimate INVALID, Clumped Platelets MODERATE AMT, Anisocytosis 2+, Macrocytosis 2+, Prothrombin Time 13.4, Prothromb Time International Ratio 1.01, Activated Partial Thromboplast Time 27.7, Fibrinogen 361, Lactate Dehydrogenase 268H 10/22/16 06:37: Neutrophils 23L, Lymphocytes (Manual) 76H, Monocytes (Manual) 1, Platelet Estimate INVALID, Clumped Platelets LARGE AMT, Anisocytosis 1+, Macrocytosis 2+ , Platelet Count, EDTA Free 97L, Anion Gap 9, Glomerular Filtration Rate > 60.0 , Blood Urea Nitrogen 8, Creatinine 0.82, Sodium Level 144, Potassium Level 3.7 , Chloride Level 110H, Carbon Dioxide Level 25, Calcium Level 8.6L CBC/BMP Laboratory Tests 10/21/16 13:28 10/21/16 19:10 10/22/16 01:12 10/22/16 06:37 Calcium Level 8.6 L HELEN HOBSON MD Oct 22, 2016 12:12
[2016-10-22] MEDS ORDERED: PROPOFOL 200 MG/20 ML VIAL As Ordered ONE (14:51)
[2016-10-22] MEDS ORDERED: LIDOCAINE 2% INJ 100 MG/5 ML SDV (FOR ANES.) As Ordered ONE (14:51)
--- NOTE | 2016-10-22 16:10 | ROOR ---
Patient Name: Naina Duckworth Procedure Date: 10/22/2016 3:42 PM Date of : 1940 Age: 76 Room: [facility] Gender: Female Note Status: Finalized Procedure: Colonoscopy Indications: Rectal bleeding Providers: Primitivo Otero Jr, MD Referring MD: 2. Inpatient 2. Inpatient Requesting Provider: Medicines: Propofol per Anesthesia Complications: No immediate complications. Procedure: Pre-Anesthesia Assessment: - Prior to the procedure, a History and Physical was performed, and patient medications and allergies were reviewed. The patient is competent. The risks and benefits of the procedure and the sedation options and risks were discussed with the patient. All questions were answered and informed consent was obtained. Patient identification and proposed procedure were verified by the physician and the nurse in the pre-procedure area and in the procedure room. Mental Status Examination: alert and oriented. Airway Examination: normal oropharyngeal airway and neck mobility. Respiratory Examination: clear to auscultation. CV Examination: normal. ASA Grade Assessment: II - A patient with mild systemic disease. After reviewing the risks and benefits, the patient was deemed in satisfactory condition to undergo the procedure. The anesthesia plan was to use moderate sedation / analgesia (conscious sedation). Immediately prior to administration of medications, the patient was re-assessed for adequacy to receive sedatives. The heart rate, respiratory rate, oxygen saturations, blood pressure, adequacy of pulmonary ventilation, and response to care were monitored throughout the procedure. The physical status of the patient was re-assessed after the procedure. The Colonoscope was introduced through the anus and advanced to the cecum, identified by appendiceal orifice and ileocecal valve. The colonoscopy was performed without difficulty. The patient tolerated the procedure well. The quality of the bowel preparation was poor. Findings: The perianal exam findings include non-thrombosed internal hemorrhoids, internal hemorrhoids that prolapse with straining, but spontaneously regress to the resting position (Grade II) and internal hemorrhoids that prolapse with straining, but require manual replacement into the anal canal (Grade III). Multiple small and large-mouthed diverticula were found in the sigmoid colon. Many polyps were found in the recto-sigmoid colon, sigmoid colon, transverse colon, ascending colon and cecum. The polyps were small in size. Coagulation for bleeding prevention using hot biopsy forceps was successful. Impression: - Preparation of the colon was poor. - Non-thrombosed internal hemorrhoids, internal hemorrhoids that prolapse with straining, but spontaneously regress to the resting position (Grade II) and internal hemorrhoids that prolapse with straining, but require manual replacement into the anal canal (Grade III) found on perianal exam. - Diverticulosis in the sigmoid colon. - Many small polyps at the recto-sigmoid colon, in the sigmoid colon, in the transverse colon, in the ascending colon and in the cecum. Treated with hot biopsy forceps. - No specimens collected. Recommendation: - [facility] care. Primitivo Otero MD Primitivo Otero Jr, MD 10/22/2016 4:09:37 PM This report has been signed electronically. Number of Addenda: 0 Note Initiated On: 10/22/2016 3:42 PM Estimated Blood Loss: Estimated blood loss: none.
[2016-10-22 16:59] VITALS: BP 180/71
[2016-10-22] MEDS: NS 1,000 ML IV SCH (17:07)
[2016-10-22 21:00] VITALS: BP 117/55
[2016-10-22 23:59] VITALS: BP 128/58
[2016-10-23 04:00] VITALS: BP 140/64
[2016-10-23] MEDS: SLF 3 ML SYR IV SCH ×3 (05:21→22:00)
[2016-10-23 06:19] LABS: PLTBLUE- EDTA FREE CALC 77 K/mm3 (172-450); PLTBLUE- EDTA FREE MACHINE 70 K/mm3 (172-450)
[2016-10-23 06:21] LABS: MEAN CORPUSCULAR HEMOGLOBIN 35.7 pg (27.0-33.0); MEAN CORPUSCULAR HGB CONC 33.8 g/dl (32.0-36.5); MEAN CORPUSCULAR VOLUME 105.8 fl (80.0-96.0); RED CELL DISTRIBUTION WIDTH 17.5 % (11.5-14.5); WHITE BLOOD COUNT 1.9 K/mm3 (4.0-10.0)
[2016-10-23 06:38] LABS: ANION GAP 10 MEQ/L (8-16); BLOOD UREA NITROGEN 14 MG/DL (7-18); CARBON DIOXIDE LEVEL 24 MEQ/L (21-32); CHLORIDE LEVEL 111 MEQ/L (98-107); CREATININE FOR GFR 0.72 MG/DL (0.55-1.02); FREE T4 1.18 NG/DL (0.76-1.46); GLOMERULAR FILTRATION RATE > 60.0 (>39); GLUCOSE, FASTING 97 MG/DL (83-110); POTASSIUM SERUM 3.8 MEQ/L (3.5-5.1); SODIUM LEVEL 145 MEQ/L (136-145)
[2016-10-23 08:00] VITALS: BP 142/62
[2016-10-23] MEDS: PANTOPRAZOLE 40MG INJ (PROTONIX) (C9113) IV SCH ×2 (08:32→20:50)
[2016-10-23] MEDS: LEVOTHYROXINE 100MCG TABLET (0.1MG) PO SCH (08:32)
[2016-10-23] MEDS: CYANOCOBALAMIN 500 MCG TAB PO SCH (08:32)
[2016-10-23] MEDS: MULTIVITAMINS/MINERALS THERAP 1 TAB PO SCH ×2 (08:32→20:48)
[2016-10-23] MEDS: BISOPROLOL FUMARATE 5 MG TAB PO SCH ×2 (08:32→20:50)
[2016-10-23] MEDS: ACETAMINOPHEN 325 MG TAB PO PRN (11:24)
--- NOTE | 2016-10-23 12:08 | IPNPDOC ---
Subjective Date Seen The patient was seen on 10/23/16. Subjective Chief Complaint/HPI Patient seen and examined at the bedside this morning. States that she is feeling well and denies any more acute complaints of bright red bloody bowel movements or any other source of bleeding. Objective Physical Examination General Exam: Positive: Alert, Cooperative, No Acute Distress ENT Exam: Positive: Atraumatic, Mucous membr. moist/pink Neck Exam: Negative: JVD Chest Exam: Positive: Clear to auscultation, Normal air movement Heart Exam: Positive: Rate Normal, Irregular Rhythm Abdomen Exam: Positive: Soft, Negative: Tenderness Extremity Exam: Negative: Tenderness, Swelling Psych Exam: Positive: Oriented x 3 Assessment /Plan Plan/VTE VTE Prophylaxis Ordered?: Yes Plan Acute gastrointestinal (GI) bleed Denies any bloody BM in the last 48hrs Aspirin and Eliquis have been discontinued since admission.--We will restart Eliquis today as per Cardiology recommendations Hemoglobin stable ~9-10 Blood pressure remains stable Colonoscopy from 10/22 notable for poor prep, internal hemorrhoids--no active bleeding identified, however the study was limited The patient will need a repeat Colonoscopy in 3-6 months--this was discussed with the patient Pancytopenia with Anemia, Leukopenia and Thrombocytopenia. Peripheral smear with no acute findings. My colleague Dr. Ybarra did discuss the case with the pathologist, and there not any blasts noted. 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 Castellon of Hematology/Oncology--We will have the patient follow up with him as an outpatient for repeat blood work, and possible Flow Cytometry and possible Bone Marrow Biopsy for further delineation of pancytopenia. This was discussed at length with the patient and her daughter at the bedside. Atrial fibrillation, stable Rate controlled On Zebeta I did speak with the patient's [employer] Supervisor Dr. Alicea about the patient's anticoagulation medication. At this time, he would like to discontinue the Aspirin and restart Eliquis. The patient is at a high risk for CVA given her CHADs-VASc score of 5. Given the fact that the patient has been hemodynamically stable, stable hgb levels, with no more bloody BMs or active bleeding identified on Colonoscopy--we will restart Eliquis as per Cardiology's recommendation and monitor the patient for any bleeding over the next 24 hrs. History of CAD with Multiple Stents in the past (None over the past 1 year according to patient) ASA discontinued Cont Bisoprolol Not on Statin? Will defer to the patient's PCP Gastroesophageal reflux disease Cont Protonix. Hypothyroidism Cont Synthroid. History of deep vein thrombosis (DVT). On Thromboembolism deterrents (TEDS), sequential compression device. Dispo--Anticipate D/C in 24 hrs if the patient remains stable. VS, I&O, 24H, Fishbone Vital Signs/I&O Vital Signs Date Time Temp Pulse Resp B/P (MAP) Pulse Ox O2 Delivery O2 Flow Rate FiO2 10/23/16 08:32 58 142/62 10/23/16 08:00 97.6 18 96 Room Air 10/22/16 23:59 2.0 I&O- Last 24 Hours up to 6 AM 10/23/16 06:00 Intake Total 420 ml Output Total 0 ml Balance 420 ml Laboratory Data 24H LABS Laboratory Tests 2 10/23/16 05:39: Platelet Count, EDTA Free 77L, Anion Gap 10, Glomerular Filtration Rate > 60.0, Blood Urea Nitrogen 14#, Creatinine 0.72, Sodium Level 145, Potassium Level 3.8 , Chloride Level 111H, Carbon Dioxide Level 24, Calcium Level 8.0L, Thyroid Stimulating Hormone (TSH) 0.764, Free Thyroxine 1.18 CBC/BMP Laboratory Tests 10/23/16 05:39 Red Blood Count 2.40 L, Mean Corpuscular Volume 105.8 H, Mean Corpuscular Hemoglobin 35.7 H, Mean Corpuscular Hemoglobin Concent 33.8, Red Cell Distribution Width 17.5 H, Calcium Level 8.0 L HELEN HOBSON MD Oct 23, 2016 12:08
[2016-10-23] MEDS: APIXABAN 5 MG TAB (ELIQUIS) PO SCH ×2 (12:59→20:48)
[2016-10-23 16:00] VITALS: BP 126/58
[2016-10-23] MEDS: NS 1,000 ML IV SCH (16:15)
[2016-10-23 20:00] VITALS: BP 161/78
[2016-10-23] MEDS: ACETAMINOPHEN TAB 650MG DOSE (2X325MG) PO PRN (20:49)
[2016-10-23] MEDS: PREPARATION H SUPP (HEMORRHOID) PR SCH (20:49)
[2016-10-23 23:59] VITALS: BP 140/65
[2016-10-24 04:00] VITALS: BP 128/65
[2016-10-24 05:42] LABS: MEAN CORPUSCULAR HEMOGLOBIN 35.2 pg (27.0-33.0); MEAN CORPUSCULAR HGB CONC 33.1 g/dl (32.0-36.5); MEAN CORPUSCULAR VOLUME 106.5 fl (80.0-96.0); PLTBLUE- EDTA FREE CALC 77 K/mm3 (172-450); PLTBLUE- EDTA FREE MACHINE 70 k/mm3 (172-450); RED CELL DISTRIBUTION WIDTH 17.8 % (11.5-14.5); WHITE BLOOD COUNT 2.3 K/mm3 (4.0-10.0)
[2016-10-24 05:45] LABS: ANION GAP 10 MEQ/L (8-16); BLOOD UREA NITROGEN 15 MG/DL (7-18); CALCIUM LEVEL 8.2 MG/DL (8.8-10.2); CARBON DIOXIDE LEVEL 23 MEQ/L (21-32); CHLORIDE LEVEL 111 MEQ/L (98-107); CREATININE FOR GFR 0.74 MG/DL (0.55-1.02); GLOMERULAR FILTRATION RATE > 60.0 (>39); GLUCOSE, FASTING 118 MG/DL (83-110); POTASSIUM SERUM 3.6 MEQ/L (3.5-5.1); SODIUM LEVEL 144 MEQ/L (136-145)
[2016-10-24] MEDS: SLF 3 ML SYR IV SCH ×3 (05:54→21:38)
[2016-10-24] MEDS: LEVOTHYROXINE 100MCG TABLET (0.1MG) PO SCH (05:57)
[2016-10-24] MEDS: ACETAMINOPHEN TAB 650MG DOSE (2X325MG) PO PRN (05:58)
[2016-10-24] MEDS: PREPARATION H SUPP (HEMORRHOID) PR SCH ×2 (09:00→21:37)
[2016-10-24] MEDS: PANTOPRAZOLE 40MG INJ (PROTONIX) (C9113) IV SCH ×2 (09:04→21:36)
[2016-10-24] MEDS: BISOPROLOL FUMARATE 5 MG TAB PO SCH ×2 (09:05→21:37)
[2016-10-24] MEDS: MULTIVITAMINS/MINERALS THERAP 1 TAB PO SCH ×2 (09:05→21:36)
[2016-10-24] MEDS: CYANOCOBALAMIN 500 MCG TAB PO SCH (09:05)
[2016-10-24] MEDS: APIXABAN 5 MG TAB (ELIQUIS) PO SCH ×2 (09:05→21:36)
[2016-10-24 11:40] VITALS: BP 125/56
--- NOTE | 2016-10-24 12:06 | IPNPDOC ---
Subjective Date Seen The patient was seen on 10/24/16. Subjective Chief Complaint/HPI Patient seen and examined at the bedside this morning. She states that she is feeling more lethargic and tired today. Denies any episodes of bloody bowel movements or any other sources of overt bleeding. Objective Physical Examination General Exam: Positive: Alert, Cooperative, No Acute Distress ENT Exam: Positive: Atraumatic, Mucous membr. moist/pink Neck Exam: Negative: JVD Chest Exam: Positive: Clear to auscultation, Normal air movement Heart Exam: Positive: Rate Normal, Irregular Rhythm Abdomen Exam: Positive: Soft, Negative: Tenderness Extremity Exam: Negative: Tenderness, Swelling Psych Exam: Positive: Oriented x 3 Assessment /Plan Plan/VTE VTE Prophylaxis Ordered?: Yes Plan Acute gastrointestinal (GI) bleed Denies any bloody BM in the last 72hrs+ Hemoglobin has been downtrending over the last 2 days 10.1-->8.6-->8.2 No overt bleeding noted We will repeat an H&H and transfuse as indicated Blood pressure remains stable Colonoscopy from 10/22 notable for poor prep, internal hemorrhoids--no active bleeding identified, however the study was limited The patient will need a repeat Colonoscopy in 3-6 months--this was discussed with the patient Pancytopenia with Anemia, Leukopenia and Thrombocytopenia. Peripheral smear with no acute findings. My colleague Dr. Ybarra did discuss the case with the pathologist, and there not any blasts noted. 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 Castellon of Hematology/Oncology--We will have the patient follow up with him as an outpatient for repeat blood work, and possible Flow Cytometry and possible Bone Marrow Biopsy for further delineation of pancytopenia such as possible underlying leukemia. This was discussed at length with the patient and her daughter at the bedside. Atrial fibrillation, stable Rate controlled On Zebeta I did speak with the patient's Policy Specialist Dr. Alicea about the patient's anticoagulation medication. At this time, he would like to discontinue the Aspirin and restart Eliquis. The patient is at a high risk for CVA given her CHADs-VASc score of 5. Given the fact that the patient has been hemodynamically stable, with no more bloody BMs or active bleeding identified on Colonoscopy--we will restart Eliquis as per Cardiology's recommendation and monitor the patient for any bleeding over the next 24-48 hrs. History of CAD with Multiple Stents in the past (None over the past 1 year according to patient) ASA discontinued Cont Bisoprolol Not on Statin? Will defer to the patient's PCP Gastroesophageal reflux disease Cont Protonix. Hypothyroidism Cont Synthroid. History of deep vein thrombosis (DVT). On Thromboembolism deterrents (TEDS), sequential compression device. Dispo--Anticipate D/C in 24-48 hrs if the patient remains stable. VS, I&O, 24H, Fishbone Vital Signs/I&O Vital Signs Date Time Temp Pulse Resp B/P (MAP) Pulse Ox O2 Delivery O2 Flow Rate FiO2 10/24/16 11:40 98.3 62 18 125/56 (79) 95 Room Air 10/22/16 23:59 2.0 I&O- Last 24 Hours up to 6 AM 10/24/16 06:00 Intake Total 1070 ml Output Total 400 ml Balance 670 ml Laboratory Data 24H LABS Laboratory Tests 2 10/24/16 05:16: Platelet Count, EDTA Free 77L, Anion Gap 10, Glomerular Filtration Rate > 60.0, Blood Urea Nitrogen 15, Creatinine 0.74, Sodium Level 144, Potassium Level 3.6, Chloride Level 111H, Carbon Dioxide Level 23, Calcium Level 8.2L CBC/BMP Laboratory Tests 10/24/16 05:16 Red Blood Count 2.33 L, Mean Corpuscular Volume 106.5 H, Mean Corpuscular Hemoglobin 35.2 H, Mean Corpuscular Hemoglobin Concent 33.1, Red Cell Distribution Width 17.8 H, Calcium Level 8.2 L HELEN HOBSON MD Oct 24, 2016 12:06
[2016-10-24 18:50] VITALS: BP 146/66
[2016-10-24 22:00] VITALS: BP 143/68
[2016-10-25] MEDS: SLF 3 ML SYR IV SCH ×3 (05:18→20:48)
[2016-10-25 06:00] VITALS: BP 137/77
[2016-10-25 06:08] LABS: PLTBLUE- EDTA FREE CALC 81 K/mm3 (172-450); PLTBLUE- EDTA FREE MACHINE 74 K/mm3 (172-450)
[2016-10-25] MEDS: LEVOTHYROXINE 100MCG TABLET (0.1MG) PO SCH (07:46)
[2016-10-25] MEDS: APIXABAN 5 MG TAB (ELIQUIS) PO SCH (07:46)
[2016-10-25] MEDS: PANTOPRAZOLE 40MG INJ (PROTONIX) (C9113) IV SCH ×2 (07:46→20:45)
[2016-10-25] MEDS: CYANOCOBALAMIN 500 MCG TAB PO SCH (07:46)
[2016-10-25] MEDS: MULTIVITAMINS/MINERALS THERAP 1 TAB PO SCH ×2 (07:47→20:45)
[2016-10-25] MEDS: PREPARATION H SUPP (HEMORRHOID) PR SCH ×2 (07:47→20:47)
[2016-10-25] MEDS: BISOPROLOL FUMARATE 5 MG TAB PO SCH ×2 (07:56→20:47)
--- NOTE | 2016-10-25 14:18 | IPNPDOC ---
Subjective Date Seen The patient was seen on 10/25/16. Subjective Chief Complaint/HPI Patient seen and examined at the bedside this morning. States that she has been feeling well. However, later in the day the patient was noted to have a bowel movement with bright red blood in the stool. The patient denied any symptoms, and she remained hemodynamically stable. Serial H&H studies will be monitored. Objective Physical Examination General Exam: Positive: Alert, Cooperative, No Acute Distress ENT Exam: Positive: Atraumatic, Mucous membr. moist/pink Neck Exam: Negative: JVD Chest Exam: Positive: Clear to auscultation, Normal air movement Heart Exam: Positive: Rate Normal, Irregular Rhythm Abdomen Exam: Positive: Soft, Negative: Tenderness Extremity Exam: Negative: Tenderness, Swelling Psych Exam: Positive: Oriented x 3 Assessment /Plan Plan/VTE VTE Prophylaxis Ordered?: Yes Plan Acute gastrointestinal (GI) bleed Patient had another episode of Bright Red Blood with BM this AM (First incident in 3 days) Hgb noted to be 8.6 this AM B/P stable Eliquis has been discontinued again (Started on 10/23/16) We will serially monitor the patient's H&H and transfusion as indicated Risks, benefits, and alternative therapies regarding with holding AC discussed with the patient and daughter at the bedside--they verbalized understanding about this and holding the anticoagulation for now Pancytopenia with Anemia, Leukopenia and Thrombocytopenia. Peripheral smear with no acute findings. My colleague Dr. Ybarra did discuss the case with the pathologist, and there not any blasts noted. 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 Castellon of Hematology/Oncology--We will have the patient follow up with him as an outpatient for repeat blood work, and possible Flow Cytometry and possible Bone Marrow Biopsy for further delineation of pancytopenia such as possible underlying leukemia. This was discussed at length with the patient and her daughter at the bedside. Atrial fibrillation, stable Rate controlled On Zebeta The patient's Eliquis will now once again be held since she had another episode of bright red blood with BM History of CAD with Multiple Stents in the past (None over the past 1 year according to patient) ASA discontinued Cont Bisoprolol Not on Statin? Will defer to the patient's PCP Gastroesophageal reflux disease Cont Protonix. Hypothyroidism Cont Synthroid. History of deep vein thrombosis (DVT). On Thromboembolism deterrents (TEDS), sequential compression device. Dispo--We will continue to monitor the patient's H&H levels serially, and transfuse as indicated. The patient's anticoagulation has been stopped due to recurrent GI bleed in the setting of underlying thrombocytopenia (pancytopenia in general). The patient remains hemodynamically stable, will continue to monitor her progress. VS, I&O, 24H, Fishbone Vital Signs/I&O Vital Signs Date Time Temp Pulse Resp B/P (MAP) Pulse Ox O2 Delivery O2 Flow Rate FiO2 10/25/16 07:56 58 148/78 10/25/16 06:00 97.9 20 96 NIPPV (BIPAP/CPAP) 10/22/16 23:59 2.0 I&O- Last 24 Hours up to 6 AM 10/25/16 06:00 Intake Total 1320 ml Output Total 750 ml Balance 570 ml Laboratory Data 24H LABS Laboratory Tests 2 10/25/16 05:41: Platelet Count, EDTA Free 81L CBC/BMP Laboratory Tests 10/24/16 18:19 10/24/16 23:54 10/25/16 05:41 HELEN HOBSON MD Oct 25, 2016 14:18
[2016-10-25 22:00] VITALS: BP 150/85
[2016-10-26 06:00] VITALS: BP 152/67
[2016-10-26] MEDS: SLF 3 ML SYR IV SCH ×2 (06:13→14:01)
[2016-10-26] MEDS: LEVOTHYROXINE 100MCG TABLET (0.1MG) PO SCH (06:13)
[2016-10-26 07:18] LABS: PLTBLUE- EDTA FREE CALC 88 K/mm3 (172-450); PLTBLUE- EDTA FREE MACHINE 80 K/mm3 (172-450)
[2016-10-26 08:48] LABS: ADD MANUAL DIFFER YES; DIFF SLIDE NUMBER 88; MEAN CORPUSCULAR HEMOGLOBIN 36.4 pg (27.0-33.0); MEAN CORPUSCULAR HGB CONC 34.7 g/dl (32.0-36.5); PLATELET COUNT, AUTOMATED 89 k/mm3 (150-450); RED CELL DISTRIBUTION WIDTH 16.7 % (11.5-14.5); WHITE BLOOD COUNT 1.7 K/mm3 (4.0-10.0)
[2016-10-26 08:49] LABS: ADD MORPHOLOGY? YES
[2016-10-26] MEDS: CYANOCOBALAMIN 500 MCG TAB PO SCH (09:00)
[2016-10-26] MEDS: PREPARATION H SUPP (HEMORRHOID) PR SCH (09:00)
[2016-10-26] MEDS: MULTIVITAMINS/MINERALS THERAP 1 TAB PO SCH (09:12)
[2016-10-26 09:20] VITALS: BP 122/80
[2016-10-26] MEDS: BISOPROLOL FUMARATE 5 MG TAB PO SCH (09:20)
[2016-10-26] MEDS: PANTOPRAZOLE 40MG INJ (PROTONIX) (C9113) IV SCH (09:20)
[2016-10-26] MEDS ORDERED: VITA10002 PO (18:22)
--- NOTE | 2016-10-26 18:35 | DS.PDOC ---
Discharge Summary General Date of Admission Oct 19, 2016 at 15:27 Date of Discharge 10/26/16 Primary Care Physician: ILENE FONTANEZ MD [facility] Discharge Summary PROCEDURES PERFORMED DURING STAY: Colonoscopy on 10/22/16 ADMITTING DIAGNOSES: 1. . GI bleeding 2. . Pancytopenia DISCHARGE DIAGNOSES: 1. . GI bleeding 2. . Pancytopenia COMPLICATIONS/CHIEF COMPLAINT: Gi Bleeding Thrombocytopenia. HISTORY OF PRESENT ILLNESS: . 76-year-old female with past medical history of coronary artery disease status post 8 stents in the past, atrial fibrillation on Eliquis, hyperthyroidism, morbid obesity, GERD, and hypertension presents to the ER with a chief complaint of epistasis for 3 days which resolved with pressure along with bright red blood per rectum. The patient denied any complaints of shortness of breath, chest pain, or dizziness. However, the patient states that the recurring episodes of bright red blood per rectum were concerning to her and she came to the ER for further evaluation and management. In the ER, the patient was noted to be anemic with a hemoglobin of 10.3. In addition the patient was also noted to be thrombocytopenic and neutropenic. The patient was admitted to the hospitalist service for pancytopenia and GI bleeding with a consult placed for surgery for further evaluation and management of the above. During hospitalization, the patient remained hemodynamically stable with a hemoglobin around 9.5, and did not require any blood transfusions. The patient' s Eliquis and aspirin were held. The patient did undergo a colonoscopy on 10/[address] Otero of surgery. However, the preparation of the colon was noted to be poor. The patient was noted to have nonthrombosed internal hemorrhoids, diverticular disease in the sigmoid colon, and many small polyps at the recto- sigmoid colon, ascending colon, and in the cecum. There was no active bleeding noted from the limited study. It was recommended that the patient have a repeat colonoscopy in 3-6 months as an outpatient. I did consult with the patient's screening unit registered nurse Dr. Alicea regarding the patient's anticoagulation and antiplatelet therapy given her presentation of GI bleeding, and it was decided that the patient be restarted on Eliquis, with aspirin being held. The patient was restarted on Eliquis on 10/23/16. However, unfortunately she did develop another episode of bright red blood per rectum with a bowel movement on 10/25/16 after restarting anticoagulation. I did discuss this with the patient's screening unit registered nurse Dr. Alicea, and he decided that it would be best to withhold anticoagulation at this time given the patient's associated GI bleeding. The patient had no further episodes of GI bleeding following discontinuation of the patient's anticoagulation. As for the patient's pancytopenia, she was noted to have borderline low vitamin B12 level during workup. Patient was given supplemental vitamin B12 replacement therapy. In addition, the patient was noted to have neutropenia with a lymphocyte predominant shift. A peripheral smear revealed white blood cells with normal morphology. My colleague Dr. Ybarra did discuss the peripheral smear results with the pathologist, and there were no acute leukemic blasts noted. Of note, the patient was noted to have an elevated Toby-Toney virus IgM antibody and IgG antibody level, which could also contribute to pancytopenia with lymphocytic predominance. I did discuss these results with Dr. Castellon of Hematology/Oncology, who suggested that the patient follow-up with him as an outpatient within one week for a repeat of her blood work, and further investigation with possible flow cytometry and bone marrow biopsy if indicated. At this time, the patient states that she is feeling better and is eager to return home. I have discussed the above findings with the patient at length including her increased risk of stroke, DVT/PE, and embolisms in general given the fact that anticoagulation and antiplatelet therapy have been discontinued due to her recurrent GI bleed. I have also voiced to the patient my concern about her pancytopenia, and the need for her to follow-up with the hat parts cutter machine/oncologist for further investigation as there is a possibility that the patient may have an underlying lymphoma/ leukemia.The patient and her daughter have verbalized understanding of the risks , benefits and alternative therapies associated with this. I've advised the patient to follow-up with her primary care physician Dr. Fontanez, screening unit registered nurse Dr. Alicea, and hat parts cutter machine/oncologist Dr. Castellon within 1 week as scheduled for further investigation of the aforementioned events. DISCHARGE MEDICATIONS: Please see below. ALLERGIES: Please see below. PHYSICAL EXAMINATION ON DISCHARGE: VITAL SIGNS: Please see below. General Exam: Positive: Alert, Cooperative, No Acute Distress ENT Exam: Positive: Atraumatic, Mucous membr. moist/pink Neck Exam: Negative: JVD Chest Exam: Positive: Clear to auscultation, Normal air movement Heart Exam: Positive: Rate Normal, Irregular Rhythm Abdomen Exam: Positive: Soft, Negative: Tenderness Extremity Exam: Negative: Tenderness, Swelling Psych Exam: Positive: Oriented x 3 LABORATORY DATA: Please see below. IMAGING: Bilateral lower extremity Duplex Doppler venous ultrasound: Real time compression and duplex Doppler interrogation of the bilateral lower extremity deep venous system is performed. Bilaterally, the common femoral, superficial femoral and popliteal veins are fully compressible with transducer pressure and demonstrate normal spontaneous and phasic flow, without evidence of deep venous thrombosis. Impression: No evidence of deep venous thrombosis of the bilateral lower extremity femoral popliteal venous system. Procedure: Colonoscopy Indications: Rectal bleeding Providers: Primitivo Otero Jr, MD Referring MD: 2. Inpatient 2. Inpatient Requesting Provider: Medicines: Propofol per Anesthesia Complications: No immediate complications. Procedure: Pre-Anesthesia Assessment: - Prior to the procedure, a History and Physical was performed, and patient medications and allergies were reviewed. The patient is competent. The risks and benefits of the procedure and the sedation options and risks were discussed with the patient. All questions were answered and informed consent was obtained. Patient identification and proposed procedure were verified by the physician and the nurse in the pre-procedure area and in the procedure room. Mental Status Examination: alert and oriented. Airway Examination: normal oropharyngeal airway and neck mobility. Respiratory Examination: clear to auscultation. CV Examination: normal. ASA Grade Assessment: II - A patient with mild systemic disease. After reviewing the risks and benefits, the patient was deemed in satisfactory condition to undergo the procedure. The anesthesia plan was to use moderate sedation / analgesia (conscious sedation). Immediately prior to administration of medications, the patient was re-assessed for adequacy to receive sedatives. The heart rate, respiratory rate, oxygen saturations, blood pressure, adequacy of pulmonary ventilation, and response to care were monitored throughout the procedure. The physical status of the patient was re-assessed after the procedure. The Colonoscope was introduced through the anus and advanced to the cecum, identified by appendiceal orifice and ileocecal valve. The colonoscopy was performed without difficulty. The patient tolerated the procedure well. The quality of the bowel preparation was poor. Findings: The perianal exam findings include non-thrombosed internal hemorrhoids, internal hemorrhoids that prolapse with straining, but spontaneously regress to the resting position (Grade II) and internal hemorrhoids that prolapse with straining, but require manual replacement into the anal canal (Grade III). Multiple small and large-mouthed diverticula were found in the sigmoid colon. Many polyps were found in the recto-sigmoid colon, sigmoid colon, transverse colon, ascending colon and cecum. The polyps were small in size. Coagulation for bleeding prevention using hot biopsy forceps was successful. Impression: - Preparation of the colon was poor. - Non-thrombosed internal hemorrhoids, internal hemorrhoids that prolapse with straining, but spontaneously regress to the resting position (Grade II) and internal hemorrhoids that prolapse with straining, but require manual replacement into the anal canal (Grade III) found on perianal exam. - Diverticulosis in the sigmoid colon. - Many small polyps at the recto-sigmoid colon, in the sigmoid colon, in the transverse colon, in the ascending colon and in the cecum. Treated with hot biopsy forceps. - No specimens collected. PROGNOSIS: Medically stable ACTIVITY: As tolerated. DIET: . 2 g low sodium diet DISCHARGE PLAN: Home DISPOSITION: 01 Home, Self-Care. DISCHARGE INSTRUCTIONS: 1. . Follow-up with her primary care physician Dr. Fontanez, screening unit registered nurse Dr. Alicea, and hat parts cutter machine/oncologist Dr. Castellon within 1 week as scheduled 2. . Repeat Colonoscopy in 3-6 months 3. . Repeat Blood work in 1-2 weeks 4. . With-hold Eliquis and Aspirin DISCHARGE CONDITION: Stable. TIME SPENT ON DISCHARGE: Greater than 30 minutes. Vital Signs/I&Os Vital Signs Date Time Temp Pulse Resp B/P (MAP) Pulse Ox O2 Delivery O2 Flow Rate FiO2 10/26/16 09:20 68 122/80 10/26/16 08:30 Room Air 10/26/16 06:00 97.0 94 96 10/22/16 23:59 2.0 I&O- Last 24 Hours up to 6 AM 10/26/16 06:00 Intake Total 1270 ml Output Total 1175 ml Balance 95 ml Laboratory Data Labs 24H Laboratory Tests 2 10/26/16 07:00: Neutrophils 23L, Lymphocytes (Manual) 77H, Platelet Estimate DECREASED, Platelet Count, EDTA Free 88L, Macrocytosis 2+ CBC/BMP Laboratory Tests 10/25/16 23:40 10/26/16 07:00 Red Blood Count 2.61 L, Mean Corpuscular Volume 105.0 H, Mean Corpuscular Hemoglobin 36.4 H, Mean Corpuscular Hemoglobin Concent 34.7, Red Cell Distribution Width 16.7 H 10/26/16 11:42 Discharge Medications Scheduled Bisoprolol Fumarate (Bisoprolol Fumarate) 5 Mg Tab, 5 MG PO BID, (Reported) Cyanocobalamin (Vitamin B-12) 1,000 Mcg Tab, 1,000 MCG PO DAILY Glucosamine Hydrochloride (Glucosamine) 500 Mg Tab, 500 MG PO BID, (Reported) Levothyroxine Sodium (Levoxyl) 100 Mcg Tab, 100 MCG PO DAILY, (Reported) Pantoprazole Sodium (Pantoprazole Sodium) 40 Mg Tab, 40 MG PO DAILY, (Reported) Pyridoxine HCl (Vitamin B-6) 100 Mg Tab, 100 MG PO DAILY, (Reported) Spironolactone (Spironolactone) 25 Mg Tab, 12.5 MG PO DAILY, (Reported) Scheduled PRN Acetaminophen (Tylenol) 325 Mg Tab, 650 MG PO Q6H PRN for PAIN, (Reported) Nitroglycerin (Nitrostat) 0.4 Mg Subl, 0.4 MG SL PRN PRN for CHEST PAIN, ( Reported) Allergies Coded Allergies: Codeine (Verified Adverse Reaction, Mild, VERY NERVOUS FLYS HIGH, 06/15/12) Morphine (Verified Adverse Reaction, Mild, VERY NERVOUS FLYS HIGH, 06/15/12 ) Propoxyphene (Verified Adverse Reaction, Mild, VERY NERVOUS FLYS HIGH, ) Xanthiol (Verified Adverse Reaction, VERY NERVOUS, FLYS HIGH, 12/25/12) HELEN HOBSON MD Oct 26, 2016 18:35
[2017-01-14] MEDS ORDERED: PEPT262S PO (13:09)
[2017-01-14] MEDS ORDERED: MIRA33504 PO (13:09)
[2017-01-14] MEDS ORDERED: QUIN5TAB7 PO (13:10)
[2017-01-19] MEDS ORDERED: DOXY100T PO (11:34)
[2017-01-19] MEDS ORDERED: REGL5TAB2 PO (11:34)
[2017-01-19] MEDS ORDERED: FLON1SPR (11:37)
== END 2016-10-26 14:29 | disposition home or self-care (01) | DRG 809 ==
LOC: M ED 10:56 → M ED INP 14:01 → M PCU 16:25 → OBSVTOIN 10-19 15:27 → M MSPAV 10-24 19:00
PROVIDERS: ADMIT Internal Medicine; ATTEND Internal Medicine
PROC: 0D5N8ZZ Destruction of Sigmoid Colon, Via Natural or Artificial Opening Endoscopic (ICD-10-PCS; 2016-10-22)
PROC: 0D5L8ZZ Destruction of Transverse Colon, Via Natural or Artificial Opening Endoscopic (ICD-10-PCS; 2016-10-22)
PROC: 0D5H8ZZ Destruction of Cecum, Via Natural or Artificial Opening Endoscopic (ICD-10-PCS; 2016-10-22)
PROC: 0DJD8ZZ Inspection of Lower Intestinal Tract, Via Natural or Artificial Opening Endoscopic (ICD-10-PCS; principal; 2016-10-22 14:45)
DX: D61.818 Other pancytopenia (principal); K62.5 Hemorrhage of anus and rectum; I10 Essential (primary) hypertension; I25.10 Atherosclerotic heart disease of native coronary artery without angina pectoris; I48.91 Unspecified atrial fibrillation; E66.01 Morbid (severe) obesity due to excess calories; K21.9 Gastro-esophageal reflux disease without esophagitis; Z95.2 Presence of prosthetic heart valve; D69.6 Thrombocytopenia, unspecified; K64.1 Second degree hemorrhoids; K57.30 Diverticulosis of large intestine without perforation or abscess without bleeding; D12.2 Benign neoplasm of ascending colon; D12.0 Benign neoplasm of cecum; D70.9 Neutropenia, unspecified; Z79.01 Long term (current) use of anticoagulants; Z79.82 Long term (current) use of aspirin; E03.9 Hypothyroidism, unspecified; Z79.899 Other long term (current) drug therapy; Z88.5 Allergy status to narcotic agent; Z88.8 Allergy status to other drugs, medicaments and biological substances; K64.2 Third degree hemorrhoids; Z86.718 Personal history of other venous thrombosis and embolism

== ENCOUNTER 2016-10-31 12:00 | Emergency (ER) | payer MEDICARE ==
[~2016-10-31] VITALS: Ht 162.6 cm; Wt 92.4 kg
[~2016-10-31 12:00] MED LIST changes: +ASPI1TAB15 PO; +CIME-49 PO; +GLUC500T53 PO; +LEVO100T54 PO; +NITR4TASL SL; +PANT40TA2 PO; +PYRI100T2 PO; +QUIN5TAB7 PO; +TYLE325T5 PO; +VITA10002 PO
[2016-10-31] MEDS ORDERED: iron PO (12:31)
[2016-10-31 13:09] LABS: MEAN CORPUSCULAR HEMOGLOBIN 36.3 pg (27.0-33.0); MEAN CORPUSCULAR HGB CONC 33.9 g/dl (32.0-36.5); MEAN CORPUSCULAR VOLUME 107.1 fl (80.0-96.0); RED CELL DISTRIBUTION WIDTH 17.8 % (11.5-14.5); WHITE BLOOD COUNT 1.6 K/mm3 (4.0-10.0)
[2016-10-31 13:26] LABS: ALBUMIN 3.4 GM/DL (3.2-5.2); ALBUMIN/GLOBULIN RATIO 0.89 (1.00-1.93); ALKALINE PHOSPHATASE 68 U/L (45-117); ALT/SGPT 20 U/L (12-78); ANION GAP 8 MEQ/L (8-16); AST/SGOT 17 U/L (15-37); BILIRUBIN,DIRECT 0.1 MG/DL (0.0-0.2); BILIRUBIN,TOTAL 0.3 MG/DL (0.2-1.0); BLOOD UREA NITROGEN 14 MG/DL (7-18); CALCIUM LEVEL 8.5 MG/DL (8.8-10.2); CARBON DIOXIDE LEVEL 26 MEQ/L (21-32); CHLORIDE LEVEL 110 MEQ/L (98-107); CREATININE FOR GFR 0.91 MG/DL (0.55-1.02); GLOMERULAR FILTRATION RATE > 60.0 (>39); GLUCOSE, FASTING 169 MG/DL (83-110); POTASSIUM SERUM 4.1 MEQ/L (3.5-5.1); SODIUM LEVEL 144 MEQ/L (136-145); TOTAL PROTEIN 7.2 GM/DL (6.4-8.2)
[2016-10-31] MEDS ORDERED: PANTOPRAZOLE 40MG INJ (PROTONIX) (C9113) IV ONE (13:45)
[2016-10-31] MEDS ORDERED: NS 500 ML IV ONE (13:45)
[2016-10-31] MEDS ORDERED: ONDANSETRON 4MG/2ML VIAL (J2405) IV ONE (13:45)
[2016-10-31 13:53] LABS: EOSINOPHILS 1 % (0-5)
[2016-10-31 13:54] LABS: ANISOCYTOSIS 1+; GIANT PLATELETS 1+; PLATELET CLUMPS MODERATE AMT
[2016-10-31 16:07] VITALS: BP 135/59
--- NOTE | 2016-11-01 21:27 | ECGEPIP ---
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
[2017-01-14] MEDS ORDERED: PEPT262S PO (13:09)
[2017-01-14] MEDS ORDERED: MIRA33504 PO (13:09)
[2017-01-14] MEDS ORDERED: QUIN5TAB7 PO (13:10)
[2017-01-19] MEDS ORDERED: REGL5TAB2 PO (11:34)
[2017-01-19] MEDS ORDERED: DOXY100T PO (11:34)
[2017-01-19] MEDS ORDERED: FLON1SPR (11:37)
== END 2016-10-31 16:30 | disposition home or self-care (01) ==
LOC: M ED 13:23
DX: R53.1 Weakness (principal); D64.9 Anemia, unspecified; R11.0 Nausea; I44.0 Atrioventricular block, first degree; I25.9 Chronic ischemic heart disease, unspecified; E05.90 Thyrotoxicosis, unspecified without thyrotoxic crisis or storm; Z95.5 Presence of coronary angioplasty implant and graft
CPT/HCPCS: 80048; 80076; 83690; 85007; 85027; 93005; 96361; 96374; 96375; 99285; C9113; J2405

== ENCOUNTER → 2016-11-05 | Outpatient (REF) | payer MEDICARE ==
[~2016-11-05] MED LIST changes: +ASPI81TA85 PO; +DOXY100T PO; +FLON1SPR; +KEFL250C11 PO; +MAALSUS20 PO; +MIRA33504 PO; +PEPT262S PO; +POLY1POW4 GT; +PRED20TA; +PROC2.5C PR; +QUIN5TAB7; +REGL5TAB2 PO; +ZOFR20TA PO; +iron PO
[2016-11-05 18:59] LABS: PERCENT SATURATION 43.5 % (13.2-45.0)
[2016-11-06 11:03] LABS: PRETREATED FOLATE FOR RBCFOL 9.5 NG/ML
== END ==
LOC: M LAB REF 15:09
PROVIDERS: ATTEND Internal Medicine Medical Oncology
DX: D61.818 Other pancytopenia (principal)

== ENCOUNTER → 2016-11-11 | Outpatient (CLI) | payer MEDICARE ==
[2016-11-11 16:46] LABS: INR 1.06
[2016-11-11 18:37] LABS: MEAN CORPUSCULAR HEMOGLOBIN 37.1 pg (27.0-33.0); MEAN CORPUSCULAR HGB CONC 34.3 g/dl (32.0-36.5); RED CELL DISTRIBUTION WIDTH 17.4 % (11.5-14.5); WHITE BLOOD COUNT 1.8 K/mm3 (4.0-10.0)
[2016-11-11 20:29] LABS: ERYTHROCYTE SEDIMENTATION RATE 126 mm/hr (0-30)
[2016-11-11 22:27] LABS: ANISOCYTOSIS 1+
== END ==
LOC: M LAB 15:52
PROVIDERS: ATTEND Family Medicine
DX: D61.818 Other pancytopenia (principal); Z79.899 Other long term (current) drug therapy

== ENCOUNTER 2016-11-14 03:03 | Emergency (ER) | payer MEDICARE ==
[~2016-11-14] VITALS: Ht 162.6 cm; Wt 90.9 kg
[~2016-11-14 03:03] MED LIST changes: -ASPI81TA85 PO; -DOXY100T PO; -FLON1SPR; -KEFL250C11 PO; -MAALSUS20 PO; -MIRA33504 PO; -PEPT262S PO; -POLY1POW4 GT; -PRED20TA; -PROC2.5C PR; -QUIN5TAB7; -REGL5TAB2 PO; -ZOFR20TA PO
[2016-11-14 03:12] VITALS: BP 131/63
[2016-11-14] MEDS ORDERED: QUIN5TAB7 (03:23)
[2016-11-14] MEDS ORDERED: LACTULOSE 20 GM/30 ML SYRUP UD PO ONE (04:15)
[2016-11-14] MEDS ORDERED: GLYCERIN ADULT SUPP PR ONE (04:15)
[2017-01-14] MEDS ORDERED: PEPT262S PO (13:09)
[2017-01-14] MEDS ORDERED: MIRA33504 PO (13:09)
[2017-01-14] MEDS ORDERED: QUIN5TAB7 PO (13:10)
[2017-01-19] MEDS ORDERED: REGL5TAB2 PO (11:34)
[2017-01-19] MEDS ORDERED: DOXY100T PO (11:34)
[2017-01-19] MEDS ORDERED: FLON1SPR (11:37)
== END 2016-11-14 06:36 | disposition home or self-care (01) ==
LOC: M ED 03:03
DX: K59.00 Constipation, unspecified (principal); I25.10 Atherosclerotic heart disease of native coronary artery without angina pectoris; I10 Essential (primary) hypertension; K21.9 Gastro-esophageal reflux disease without esophagitis; Z87.891 Personal history of nicotine dependence

== ENCOUNTER → 2016-11-17 | Outpatient (REF) | payer MEDICARE ==
[~2016-11-17] MED LIST changes: +ASPI81TA85 PO; +DOXY100T PO; +FLON1SPR; +KEFL250C11 PO; +MAALSUS20 PO; +MIRA33504 PO; +PEPT262S PO; +POLY1POW4 GT; +PRED20TA; +PROC2.5C PR; +QUIN5TAB7; +REGL5TAB2 PO; +ZOFR20TA PO
== END ==
LOC: M LAB REF 17:17
PROVIDERS: ATTEND Internal Medicine Medical Oncology
DX: D61.818 Other pancytopenia (principal)

== ENCOUNTER 2016-11-21 16:39 | Observation (INO) | payer MEDICARE ==
[~2016-11-21] VITALS: Ht 162.6 cm; Wt 90.9 kg
[~2016-11-21 16:39] MED LIST changes: -ASPI81TA85 PO; -DOXY100T PO; -FLON1SPR; -KEFL250C11 PO; -MAALSUS20 PO; -MIRA33504 PO; -PEPT262S PO; -POLY1POW4 GT; -PRED20TA; -PROC2.5C PR; -REGL5TAB2 PO; -ZOFR20TA PO
[2016-11-21] MEDS ORDERED: ZOFR20TA PO (16:54)
[2016-11-21] MEDS ORDERED: ASPI81TA85 PO (16:58)
[2016-11-21 17:55] LABS: ADD MANUAL DIFFER YES; MEAN CORPUSCULAR HEMOGLOBIN 37.5 pg (27.0-33.0); MEAN CORPUSCULAR HGB CONC 34.3 g/dl (32.0-36.5); MEAN CORPUSCULAR VOLUME 109.6 fl (80.0-96.0); PLATELET COUNT, AUTOMATED 111 k/mm3 (150-450); RED CELL DISTRIBUTION WIDTH 17.6 % (11.5-14.5); WHITE BLOOD COUNT 1.4 K/mm3 (4.0-10.0)
[2016-11-21 18:10] LABS: ANION GAP 8 MEQ/L (8-16); BLOOD UREA NITROGEN 17 MG/DL (7-18); CARBON DIOXIDE LEVEL 27 MEQ/L (21-32); CHLORIDE LEVEL 108 MEQ/L (98-107); CREATININE FOR GFR 0.77 MG/DL (0.55-1.02); GLOMERULAR FILTRATION RATE > 60.0 (>39); GLUCOSE, FASTING 114 MG/DL (83-110); MAGNESIUM LEVEL 2.3 MG/DL (1.8-2.4); SODIUM LEVEL 143 MEQ/L (136-145)
[2016-11-21 18:14] LABS: POTASSIUM SERUM 5.3 MEQ/L (3.5-5.1)
[2016-11-21 18:31] LABS: GIANT PLATELETS 1+; PLATELET CLUMPS SMALL AMT
[2016-11-21 18:33] LABS: TOXIC GRANULATION 1+
[2016-11-21 18:34] LABS: ANISOCYTOSIS 1+
[2016-11-21] MEDS: BISOPROLOL FUMARATE 5 MG TAB PO SCH (21:00)
[2016-11-21] MEDS: ANUSOL HC CREAM 30GM PR SCH (21:00)
[2016-11-21] MEDS ORDERED: ACETAMINOPHEN 325 MG TAB PO ONE (21:15)
[2016-11-21 21:41] LABS: ADD MANUAL DIFFER YES; MEAN CORPUSCULAR HEMOGLOBIN 37.5 pg (27.0-33.0); MEAN CORPUSCULAR HGB CONC 34.5 g/dl (32.0-36.5); MEAN CORPUSCULAR VOLUME 108.9 fl (80.0-96.0); PLATELET COUNT, AUTOMATED 104 k/mm3 (150-450); RED CELL DISTRIBUTION WIDTH 17.5 % (11.5-14.5); WHITE BLOOD COUNT 1.3 K/mm3 (4.0-10.0)
[2016-11-21 21:55] LABS: ANION GAP 8 MEQ/L (8-16); BLOOD UREA NITROGEN 16 MG/DL (7-18); CALCIUM LEVEL 8.6 MG/DL (8.8-10.2); CARBON DIOXIDE LEVEL 27 MEQ/L (21-32); CHLORIDE LEVEL 107 MEQ/L (98-107); CREATININE FOR GFR 0.84 MG/DL (0.55-1.02); GLOMERULAR FILTRATION RATE > 60.0 (>39); GLUCOSE, FASTING 105 MG/DL (83-110); POTASSIUM SERUM 4.7 MEQ/L (3.5-5.1); SODIUM LEVEL 142 MEQ/L (136-145)
[2016-11-21 22:16] LABS: NUCLEATED RED BLOOD CELL 0 % (0-0)
[2016-11-21 22:17] LABS: PLATELET CLUMPS LARGE AMT
[2016-11-21 22:18] LABS: ANISOCYTOSIS 1+
[2016-11-21 22:19] LABS: STOMATOCYTES 1+
[2016-11-21] MEDS ORDERED: CIME-49 PO (23:04)
[2016-11-21] MEDS ORDERED: PROC2.5C PR (23:04)
[2016-11-21] MEDS ORDERED: ACETAMINOPHEN TAB 650MG DOSE (2X325MG) PO PRN (23:45)
[2016-11-21] MEDS ORDERED: ONDANSETRON 4MG/2ML VIAL (J2405) IV PRN (23:45)
[2016-11-22 00:48] VITALS: BP 136/63
--- NOTE | 2016-11-22 02:00 | HPEPDOC ---
Medical History and Physical Date of Admission Nov 21, 2016 at 16:40 History and Physical PRIMARY CARE PROVIDER: Dr. Sigala ATTENDING: Dr. Chari Patel CHIEF COMPLAINT: Generalized weakness, leg spasm HISTORY OF PRESENT ILLNESS: This is a 76-year-old female with a past medical history of CAD, atrial fibrillation currently on aspirin, hyperthyroidism, GERD, hypertension, pancytopenia who presents complaining of generalized weakness and right lower extremity muscle spasm. Patient states since she's been to the ED, her spasm has resolved. It was noted the patient's hemoglobin was 7.8, down from her 8.4 on the recent admission. Given that the patient is experiencing generalized weakness and lethargy, we will transfuse her 1 unit PRBC. She is currently being followed by Dr. Castellon for her pancytopenia and recently had a bone marrow biopsy for which she will need to follow-up with him fairly soon. Patient denies chest pain/shortness of breath/palpitations. No syncopal episodes. No hematochezia/melanotic stools. She was recently admitted for a lower GI bleed however states has not had any recurrent bleeding since she was taken off her Eliquis. PAST MEDICAL HISTORY: As per HPI PAST SURGICAL HISTORY: History of PCI, cholecystectomy, tonsillectomy, D&C, lung biopsy, bone marrow biopsy SOCIAL HISTORY: Denies tobacco, alcohol, illicit drug use. FAMILY HISTORY: Noncontributory ALLERGIES: Please see below. REVIEW OF SYSTEMS: HEENT: Denies sore throat/headache CARDIOVASCULAR: Denies chest pain/palpitations RESPIRATORY: Denies shortness of breath/cough GASTROINTESTINAL: denies nausea/vomiting GENITOURINARY: Denies dysuria/urinary urgency. MUSCULOSKELETAL: Denies myalgias/arthralgias NEUROLOGICAL: Denies any focal weakness HOME MEDICATIONS: Please see below. PHYSICAL EXAMINATION: Vitals: (see below) General: No acute distress, laying comfortably in bed. HEENT: Moist mucous membranes. Neck: No JVD or lymphadenopathy Cardiac: RRR, No murmurs Pulm: Clear to auscultation b/l. No wheezing, rhonchi Abd: NT/ND + BS Ext: No edema or cyanosis. 5 out of 5 strength bilateral lower extremities. Distal pulses intact. LABORATORY DATA: See below. IMAGING: MICROBIOLOGY: Please see below. ASSESSMENT/PLAN: 1. Acute on chronic anemia- patient is currently being worked up for her pancytopenia by Dr. Castellon. We'll transfuse her 1 unit PRBC. She is hemodynamically stable. 2. Pancytopenia- being followed outpatient. Will need to follow-up with Dr. Castellon fairly soon. Recently had a bone marrow biopsy. Also receiving B12 injections given her B12 deficiency. No need for platelet transfusion at this time. 3. Atrial fibrillation- on aspirin and beta godfrey 4. Hyperkalemia- initial specimen was likely hemolyzed. We'll hold spironolactone for now. 5. Hypothyroidism- continue Synthroid 6. History of CAD- on aspirin, beta godfrey. ? Need for statin 7. GERD- on PPI DVT prophylaxis- SCDs Patient will be followed by Dr. Chari Patel starting 11/22/16 at 7 AM. Vital Signs Vital Signs Date Time Temp Pulse Resp B/P (MAP) Pulse Ox O2 Delivery O2 Flow Rate FiO2 11/22/16 00:48 98.1 65 24 136/63 (87) 97 Room Air Laboratory Data Labs 24H Laboratory Tests 2 11/21/16 17:30: Neutrophils 13L, Lymphocytes (Manual) 83H, Monocytes (Manual) 2, Atypical Lymphocytes 2, Toxic Granulation 1+, Platelet Estimate DECREASED, Clumped Platelets SMALL AMT, Giant Platelets 1+, Anisocytosis 1+, Macrocytosis 3+, Anion Gap 8, Glomerular Filtration Rate > 60.0, Blood Urea Nitrogen 17, Creatinine 0.77, Sodium Level 143, Potassium Level 5.3H, Chloride Level 108H, Carbon Dioxide Level 27, Calcium Level 8.0L, Magnesium Level 2.3 11/21/16 21:20: Neutrophils 6L, Lymphocytes (Manual) 92H, Monocytes (Manual) 2, Platelet Estimate INVALID, Clumped Platelets LARGE AMT, Anisocytosis 1+, Macrocytosis 2+ , Anion Gap 8, Glomerular Filtration Rate > 60.0, Blood Urea Nitrogen 16, Creatinine 0.84, Sodium Level 142, Potassium Level 4.7, Chloride Level 107, Carbon Dioxide Level 27, Calcium Level 8.6L, Nucleated Red Blood Cells 0, Stomatocytes 1+ CBC/BMP Laboratory Tests 11/21/16 17:30 Red Blood Count 2.07 L, Mean Corpuscular Volume 109.6 H, Mean Corpuscular Hemoglobin 37.5 H, Mean Corpuscular Hemoglobin Concent 34.3, Red Cell Distribution Width 17.6 H, Calcium Level 8.0 L 11/21/16 21:20 Red Blood Count 2.05 L, Mean Corpuscular Volume 108.9 H, Mean Corpuscular Hemoglobin 37.5 H, Mean Corpuscular Hemoglobin Concent 34.5, Red Cell Distribution Width 17.5 H, Calcium Level 8.6 L Home Medications Scheduled (Cimetidine) 400 Mg Tab, 400 MG PO DAILY Aspirin (Aspir-81) 81 Mg Tab, 81 MG PO DAILY Bisoprolol Fumarate (Bisoprolol Fumarate) 5 Mg Tab, 5 MG PO BID Glucosamine Hydrochloride (Glucosamine) 500 Mg Tab, 500 MG PO BID Hydrocortisone (Proctosol Hc) 2.5 % Cre, 1 DOSE [place] BID Levothyroxine Sodium (Levoxyl) 100 Mcg Tab, 100 MCG PO QAM Pantoprazole Sodium (Pantoprazole Sodium) 40 Mg Tab, 40 MG PO DAILY Pyridoxine HCl (Vitamin B-6) 100 Mg Tab, 100 MG PO DAILY Spironolactone (Spironolactone) 25 Mg Tab, 12.5 MG PO DAILY Scheduled PRN Acetaminophen (Tylenol) 325 Mg Tab, 650 MG PO Q6H PRN for PAIN Nitroglycerin (Nitrostat) 0.4 Mg Subl, 0.4 MG SL Q5MP PRN for CHEST PAIN Ondansetron HCl (Zofran) 4 Mg Tab, 4 MG PO Q4H PRN for NAUSEA Allergies Coded Allergies: Codeine (Verified Adverse Reaction, Mild, VERY NERVOUS FLYS HIGH, 11/14/16) Morphine (Verified Adverse Reaction, Mild, VERY NERVOUS FLYS HIGH, 11/14/16 ) Propoxyphene (Verified Adverse Reaction, Mild, VERY NERVOUS FLYS HIGH, ) Xanthiol (Verified Adverse Reaction, Unknown, VERY NERVOUS, FLYS HIGH, 11/14) LUIS TEAGUE MD Nov 22, 2016 02:00
[2016-11-22 02:10] VITALS: BP 118/58
[2016-11-22 04:00] VITALS: BP 146/65
[2016-11-22 04:47] LABS: MEAN CORPUSCULAR HEMOGLOBIN 37.2 pg (27.0-33.0); MEAN CORPUSCULAR HGB CONC 35.5 g/dl (32.0-36.5); RED CELL DISTRIBUTION WIDTH 19.1 % (11.5-14.5); WHITE BLOOD COUNT 1.7 K/mm3 (4.0-10.0)
[2016-11-22 04:56] LABS: ANION GAP 8 MEQ/L (8-16); BLOOD UREA NITROGEN 22 MG/DL (7-18); CALCIUM LEVEL 8.9 MG/DL (8.8-10.2); CARBON DIOXIDE LEVEL 27 MEQ/L (21-32); CHLORIDE LEVEL 108 MEQ/L (98-107); CREATININE FOR GFR 0.92 MG/DL (0.55-1.02); GLOMERULAR FILTRATION RATE > 60.0 (>39); GLUCOSE, FASTING 112 MG/DL (83-110); MAGNESIUM LEVEL 2.3 MG/DL (1.8-2.4); POTASSIUM SERUM 4.6 MEQ/L (3.5-5.1); SODIUM LEVEL 143 MEQ/L (136-145)
[2016-11-22] MEDS ORDERED: LEVOTHYROXINE 100MCG TABLET (0.1MG) PO SCH (06:00)
[2016-11-22 06:50] LABS: PHOSPHORUS LEVEL 4.7 MG/DL (2.5-4.9)
[2016-11-22 08:00] VITALS: BP 132/60
[2016-11-22] MEDS ORDERED: PANTOPRAZOLE 40MG TAB (PROTONIX) PO SCH (09:00)
[2016-11-22] MEDS ORDERED: PYRIDOXINE 50 MG TAB PO SCH (09:00)
[2016-11-22] MEDS ORDERED: ASPIRIN 81 MG ENTERIC TAB PO SCH (09:00)
[2016-11-22] MEDS: ANUSOL HC CREAM 30GM PR SCH (09:08)
[2016-11-22 09:10] VITALS: BP 132/60
[2016-11-22] MEDS: BISOPROLOL FUMARATE 5 MG TAB PO SCH (09:10)
--- NOTE | 2016-11-22 21:06 | DSES ---
DATE OF ADMISSION: 11/21/2016 DATE OF DISCHARGE: 11/22/2016 DISCHARGE DIAGNOSIS: Symptomatic anemia. SECONDARY DIAGNOSES: 1. Pancytopenia. 2. Atrial fibrillation. 3. Hyperkalemia. 4. Hypothyroidism. 5. Coronary artery disease. 6. Gastroesophageal reflux disease. HOSPITAL COURSE: The patient is a 76-year-old female who was recently discharged with rectal bleeding. At that time, she was on Eliquis and she was discontinued from her Eliquis. She was found to be pancytopenic. She was also Toby-Toney virus (EBV) IgM positive. She has since been following up with Dr. Castellon in the outpatient setting and has received a bone marrow biopsy for her pancytopenia. She presented with weakness and a leg spasm which spontaneously resolved in the emergency room (ER). Her weakness was felt to be secondary to symptomatic anemia. She was transfused two units of packed red blood cells (PRBCs) with a prompt resolution of her symptoms. She returned to her baseline. At this time, she is medically stable for discharge home and followup with Dr. Castellon and her primary care provider. SUBJECTIVE: Today, she has no complaints and is ready to go home. Now that she has had two units of blood, she feels back to normal and is grateful for the care that she has received. OBJECTIVE: VITAL SIGNS: Temperature 98, pulse 72, respiratory rate 20, blood pressure 132/60, oxygen saturation 95% on room air. GENERAL: She is a pleasant, elderly, female laying in bed, in no acute distress. HEENT: She has moist mucous membranes. No elevation of central venous pressure (CVP). She has good color. NEUROLOGIC: Cranial nerves II-XII are grossly intact. CARDIOVASCULAR EXAMINATION: S1, S2, irregularly irregular. No distant heart sounds appreciated. RESPIRATORY EXAMINATION: Clear. ABDOMINAL EXAMINATION: Benign. EXTREMITIES: No clubbing, cyanosis, or edema. LABORATORY STUDIES: WBC 1.7, hemoglobin 8.8 prior to transfusion, hematocrit 24.9, platelet count most recently 104. Chemistry panel: Sodium 143, potassium 4.6, chloride 108, bicarbonate 27, BUN 22 , creatinine 0.9. ASSESSMENT AND PLAN: This is a 76-year-old female with symptomatic anemia. PROBLEM LIST: 1. Symptomatic anemia, resolved with two units of packed red blood cells (PRBCs) . [place] to be related to bone marrow suppression. She is currently undergoing an extensive outpatient evaluation by Dr. Castellon including a recent bone marrow biopsy for which she will need to continue following outpatient with him. No evidence of acute bleeding. 2. Atrial fibrillation. She is on a baby aspirin and bisoprolol. She is intolerant to anticoagulation given her recent bleeding. 3. Gastroesophageal reflux disease. She is on a proton pump inhibitor (PPI). 4. Hemorrhoids. She is on hydrocortisone. 5. Hypothyroidism. She is on Synthroid. 6. Hyperkalemia. It was a hemolyzed specimen. Repeats were negative. 7. Deep vein thrombosis (DVT) prophylaxis. Sequentials and thromboembolic-deterrent stockings (TEDS). 8. History of coronary artery disease. She is on aspirin and a beta godfery. She is not on statin. We will defer to outpatient providers. DISPOSITION: The patient is being discharged home. She is at her functional baseline. Her clinical status has resolved. She is to followup with her primary care provider (PCP) in seven days and Dr. Castellon as scheduled. Her activity and diet are as prior to admission. She is to return to the emergency room (ER) if her symptoms worsen. MEDICATIONS AT THE TIME OF DISCHARGE: - Tylenol 650 every six hours as needed for pain - aspirin 81 mg daily - bisoprolol 5 mg twice a day - cimetidine 400 mg daily - glucosamine as per the patient - hydrocortisone 3.5% cream one dose rectally twice a day - levothyroxine 100 mcg every morning. - Nitrostat 0.4 mg every five minutes as needed for chest pain - Zofran 4 mg every hour hours as needed for nausea - Protonix 40 mg daily - vitamin B6 100 mg daily - aldactone 12.5 mg daily MTDD
[2017-01-14] MEDS ORDERED: PEPT262S PO (13:09)
[2017-01-14] MEDS ORDERED: MIRA33504 PO (13:09)
[2017-01-14] MEDS ORDERED: QUIN5TAB7 PO (13:10)
[2017-01-19] MEDS ORDERED: REGL5TAB2 PO (11:34)
[2017-01-19] MEDS ORDERED: DOXY100T PO (11:34)
[2017-01-19] MEDS ORDERED: FLON1SPR (11:37)
== END 2016-11-22 11:52 | disposition home or self-care (01) ==
LOC: EDBD 16:39 → M ED 16:39 → M ED INP 16:40 → M ICU 11-22 00:27
PROVIDERS: ADMIT Internal Medicine; ATTEND Internal Medicine
DX: D61.818 Other pancytopenia (principal); I48.91 Unspecified atrial fibrillation; E78.5 Hyperlipidemia, unspecified; I10 Essential (primary) hypertension; E03.9 Hypothyroidism, unspecified; I25.10 Atherosclerotic heart disease of native coronary artery without angina pectoris; K21.9 Gastro-esophageal reflux disease without esophagitis; Z79.82 Long term (current) use of aspirin; Z79.899 Other long term (current) drug therapy; Z88.8 Allergy status to other drugs, medicaments and biological substances
CPT/HCPCS: 36415; 36430; 80048; 83735; 84100; 85025; 85027; 86850; 86900; 86901; 86920; 96374; 99284; G0378; J2405; P9016

== ENCOUNTER 2016-11-25 20:59 | Emergency (ER) | payer MEDICARE ==
[~2016-11-25] VITALS: Ht 162.6 cm; Wt 90.9 kg
[2016-11-25 20:59] VITALS: BP 160/106
[~2016-11-25 20:59] MED LIST changes: -DOXY100T PO; -FLON1SPR; -KEFL250C11 PO; -MAALSUS20 PO; -MIRA33504 PO; -PEPT262S PO; -POLY1POW4 GT; -PRED20TA; -REGL5TAB2 PO
[2017-01-14] MEDS ORDERED: MIRA33504 PO (13:09)
[2017-01-14] MEDS ORDERED: PEPT262S PO (13:09)
[2017-01-14] MEDS ORDERED: QUIN5TAB7 PO (13:10)
[2017-01-19] MEDS ORDERED: DOXY100T PO (11:34)
[2017-01-19] MEDS ORDERED: REGL5TAB2 PO (11:34)
[2017-01-19] MEDS ORDERED: FLON1SPR (11:37)
== END 2016-11-25 22:11 | disposition left against medical advice (07) ==
LOC: M ED 20:59
DX: M54.2 Cervicalgia (principal); D61.818 Other pancytopenia; Z53.29 Procedure and treatment not carried out because of patient's decision for other reasons

== ENCOUNTER → 2016-11-25 | Outpatient (REF) | payer MEDICARE ==
[~2016-11-25] MED LIST changes: +ASPI81TA85 PO; +DOXY100T PO; +FLON1SPR; +KEFL250C11 PO; +MAALSUS20 PO; +MIRA33504 PO; +PEPT262S PO; +POLY1POW4 GT; +PRED20TA; +PROC2.5C PR; +REGL5TAB2 PO; +ZOFR20TA PO
== END ==
LOC: M LAB REF 16:41
PROVIDERS: ATTEND Internal Medicine Medical Oncology
DX: D61.818 Other pancytopenia (principal)

== ENCOUNTER → 2016-12-09 | Outpatient (REF) | payer MEDICARE ==
[~2016-12-09] MED LIST changes: +DOXY100T PO; +FLON1SPR; +KEFL250C11 PO; +MAALSUS20 PO; +MIRA33504 PO; +PEPT262S PO; +POLY1POW4 GT; +PRED20TA; +REGL5TAB2 PO
[2016-12-09 15:47] LABS: PERCENT SATURATION 73.5 % (13.2-45.0)
== END ==
LOC: M LAB REF 15:10
PROVIDERS: ATTEND Internal Medicine Medical Oncology
DX: D61.818 Other pancytopenia (principal); Z79.899 Other long term (current) drug therapy; I48.91 Unspecified atrial fibrillation

== ENCOUNTER → 2016-12-17 | Outpatient (CLI) | payer MEDICARE | LOC: M LAB 13:55 | PROVIDERS: ATTEND Internal Medicine Medical Oncology | DX: D64.9 Anemia, unspecified (principal) ==

== ENCOUNTER 2016-12-18 06:46 | Outpatient (CLI) | payer MEDICARE ==
[~2016-12-18] VITALS: Ht 162.6 cm; Wt 90.9 kg
[~2016-12-18 06:46] MED LIST changes: -DOXY100T PO; -FLON1SPR; -KEFL250C11 PO; -MAALSUS20 PO; -MIRA33504 PO; -PEPT262S PO; -POLY1POW4 GT; -PRED20TA; -REGL5TAB2 PO
[2016-12-18] MEDS ORDERED: ACETAMINOPHEN TAB 650MG DOSE (2X325MG) PO ONE (07:00)
[2016-12-18] MEDS ORDERED: diphenhydrAMINE 25 MG CAP PO ONE (07:00)
[2016-12-19] MEDS ORDERED: PRED20TA (09:20)
[2017-01-14] MEDS ORDERED: MIRA33504 PO (13:09)
[2017-01-14] MEDS ORDERED: PEPT262S PO (13:09)
[2017-01-14] MEDS ORDERED: QUIN5TAB7 PO (13:10)
[2017-01-19] MEDS ORDERED: DOXY100T PO (11:34)
[2017-01-19] MEDS ORDERED: REGL5TAB2 PO (11:34)
[2017-01-19] MEDS ORDERED: FLON1SPR (11:37)
== END 2016-12-18 11:45 | disposition home or self-care (01) ==
LOC: M INFU 06:46
PROVIDERS: ATTEND Internal Medicine Medical Oncology
DX: D64.9 Anemia, unspecified (principal); Z95.5 Presence of coronary angioplasty implant and graft; Z88.5 Allergy status to narcotic agent; Z88.8 Allergy status to other drugs, medicaments and biological substances; Z79.82 Long term (current) use of aspirin; Z79.899 Other long term (current) drug therapy
CPT/HCPCS: 36430; P9016

== ENCOUNTER 2016-12-19 08:40 | Emergency (ER) | payer MEDICARE ==
[~2016-12-19] VITALS: Ht 162.6 cm; Wt 90.9 kg
[2016-12-19] MEDS ORDERED: FLEET OIL RETENTION ENEMA PR PRN (09:15)
[2016-12-19] MEDS ORDERED: PRED20TA (09:20)
[2016-12-19 09:32] VITALS: BP 147/68
[2017-01-14] MEDS ORDERED: MIRA33504 PO (13:09)
[2017-01-14] MEDS ORDERED: PEPT262S PO (13:09)
[2017-01-14] MEDS ORDERED: QUIN5TAB7 PO (13:10)
[2017-01-19] MEDS ORDERED: DOXY100T PO (11:34)
[2017-01-19] MEDS ORDERED: REGL5TAB2 PO (11:34)
[2017-01-19] MEDS ORDERED: FLON1SPR (11:37)
== END 2016-12-19 09:33 | disposition home or self-care (01) ==
LOC: M ED 08:40 → EDBD 08:40 → M ED 09:33
DX: K59.00 Constipation, unspecified (principal); I11.0 Hypertensive heart disease with heart failure; I50.9 Heart failure, unspecified; E03.9 Hypothyroidism, unspecified; D46.9 Myelodysplastic syndrome, unspecified; Z95.5 Presence of coronary angioplasty implant and graft; Z79.82 Long term (current) use of aspirin

== ENCOUNTER → 2016-12-28 | Outpatient (CLI) | payer MEDICARE ==
[~2016-12-28] MED LIST changes: +DOXY100T PO; +FLON1SPR; +GASTROGRAFIN SOLUTION 30ML (Q9963) As Ordered ONE; +ISOVUE-370 76% 100ML VIAL (Q9967) As Ordered ONE; +KEFL250C11 PO; +MAALSUS20 PO; +MIRA33504 PO; +PEPT262S PO; +POLY1POW4 GT; +PRED20TA; +REGL5TAB2 PO
--- NOTE | 2016-12-28 14:25 | REP ---
CT CHEST WITH IV CONTRAST: TECHNIQUE: Axial contrast enhanced images from the thoracic inlet to the upper abdomen using 100 mL Isovue 370 intravenous contrast material with multiplanar reformations. Scattered bilateral interstitial fibrotic changes are seen bilaterally primarily in the inferior aspect of the lungs. No suspicious nodular opacity is seen. The heart is upper limits of normal in size to slightly enlarged. There is no pleural or pericardial effusion. There is no evidence of mediastinal, hilar or chest wall lymphadenopathy. There are atherosclerotic calcifications of the thoracic aorta without aneurysm or dissection. IMPRESSION: Mild chronic interstitial fibrotic change in both lungs. No acute abnormalities. No adenopathy or mass. Signed by Gerard Kurtz MD 12/29/2016 07:54 P
--- NOTE | 2016-12-28 14:34 | REP ---
CT ABDOMEN/PELVIS WITHOUT AND WITH IV CONTRAST: TECHNIQUE: Axial noncontrast images through the abdomen followed by contrast-enhanced images through the abdomen and pelvis using 100 mL Isovue 370 intravenous contrast material, with coronal and sagittal reformations. Liver demonstrates no mass. Patient has had a prior cholecystectomy. There does not appear to be significant biliary dilatation. Spleen is not enlarged. A few tiny calcified granulomas are seen in the spleen. The adrenals and pancreas are unremarkable. Mild cortical scarring is seen of the kidneys without hydronephrosis. No renal calculi are seen. There are atherosclerotic calcifications of the abdominal aorta without aneurysm. No adenopathy is seen. There is no free air or free fluid. There is no bowel wall thickening. The appendix is normal. There is diffuse sigmoid diverticulosis without evidence of acute diverticulitis. No pelvic mass is seen. IMPRESSION: No splenomegaly. A few tiny calcified granulomas in the spleen. Status post cholecystectomy. Sigmoid diverticulosis without acute diverticulitis. No adenopathy or mass. Signed by Gerard Kurtz MD 12/29/2016 07:54 P
== END ==
LOC: M RAD 10:50
PROVIDERS: ATTEND Internal Medicine Medical Oncology
DX: R16.1 Splenomegaly, not elsewhere classified (principal); K57.30 Diverticulosis of large intestine without perforation or abscess without bleeding
CPT/HCPCS: 71260; 74178; Q9963; Q9967

== ENCOUNTER 2016-12-29 09:53 | Emergency (ER) | payer MEDICARE ==
[~2016-12-29] VITALS: Ht 162.6 cm; Wt 91.8 kg
[~2016-12-29 09:53] MED LIST changes: -DOXY100T PO; -FLON1SPR; -GASTROGRAFIN SOLUTION 30ML (Q9963) As Ordered ONE; -ISOVUE-370 76% 100ML VIAL (Q9967) As Ordered ONE; -KEFL250C11 PO; -MAALSUS20 PO; -MIRA33504 PO; -PEPT262S PO; -POLY1POW4 GT; -REGL5TAB2 PO
[2016-12-29] MEDS ORDERED: NS 1,000 ML IV SCH (10:12)
[2016-12-29] MEDS ORDERED: METOCLOPRAMIDE INJ 10MG/2ML VIAL (J2765) IV ONE (11:00)
[2016-12-29 11:10] LABS: BASO % 0.4 % (0.0-1.0); IMMATURE GRANULOCYTE % 1.7 % (0-0); LYMPH # 1.5 10^3/uL (1.5-4.5); LYMPH % 32.8 % (24.0-44.0); MEAN CORPUSCULAR HEMOGLOBIN 34.4 pg (27.0-33.0); MEAN CORPUSCULAR HGB CONC 32.3 g/dl (32.0-36.5); MONO # 1.4 10^3/uL (0.0-0.8); NEUTROPHILS # 1.6 10^3/uL (1.8-7.7); NEUTROPHILS % 35.1 % (36.0-66.0); PLATELET COUNT, AUTOMATED 250 10^3/uL (150-450); WHITE BLOOD COUNT 4.6 10^3/uL (4.0-10.0)
[2016-12-29 11:29] LABS: ALBUMIN 3.2 GM/DL (3.2-5.2); ALBUMIN/GLOBULIN RATIO 0.94 (1.00-1.93); BILIRUBIN,DIRECT 0.2 MG/DL (0.0-0.2); BILIRUBIN,TOTAL 0.9 MG/DL (0.2-1.0); CALCIUM LEVEL 8.5 MG/DL (8.8-10.2); CREATININE FOR GFR 0.97 MG/DL (0.55-1.02); GLOMERULAR FILTRATION RATE 59.1 (>39); POTASSIUM SERUM 4.2 MEQ/L (3.5-5.1); TOTAL PROTEIN 6.6 GM/DL (6.4-8.2)
[2016-12-29 11:43] LABS: MEAN CORPUSCULAR VOLUME 106.3 fl (80.0-96.0); PLT CLUMPS? POS FLAG; POS COUNT POS FLAG; POSITIVE MORPH POS FLAG; RED CELL DISTRIBUTION WIDTH 21.9 % (11.5-14.5)
[2016-12-29] MEDS ORDERED: NS 500 ML IV ONE (11:45)
[2016-12-29 13:59] VITALS: BP 128/88
[2016-12-29] MEDS ORDERED: REGL5TAB2 PO (14:03)
--- NOTE | 2016-12-30 08:14 | ECGEPIP ---
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
[2017-01-14] MEDS ORDERED: PEPT262S PO (13:09)
[2017-01-14] MEDS ORDERED: MIRA33504 PO (13:09)
[2017-01-14] MEDS ORDERED: QUIN5TAB7 PO (13:10)
[2017-01-19] MEDS ORDERED: DOXY100T PO (11:34)
[2017-01-19] MEDS ORDERED: REGL5TAB2 PO (11:34)
[2017-01-19] MEDS ORDERED: FLON1SPR (11:37)
== END 2016-12-29 14:04 | disposition home or self-care (01) ==
LOC: M ED 09:53
DX: R53.83 Other fatigue (principal); R11.0 Nausea; I48.91 Unspecified atrial fibrillation; I10 Essential (primary) hypertension; I25.10 Atherosclerotic heart disease of native coronary artery without angina pectoris; E03.9 Hypothyroidism, unspecified; D61.818 Other pancytopenia; Z79.82 Long term (current) use of aspirin; Z79.899 Other long term (current) drug therapy; Z79.52 Long term (current) use of systemic steroids; Z88.5 Allergy status to narcotic agent; Z88.8 Allergy status to other drugs, medicaments and biological substances
CPT/HCPCS: 80048; 80076; 82550; 82553; 83690; 84484; 85025; 86850; 86900; 86901; 93005; 93041; 96374; 99285; J2765

== ENCOUNTER → 2016-12-31 | Outpatient (REF) | payer MEDICARE ==
[~2016-12-31] MED LIST changes: +DOXY100T PO; +FLON1SPR; +KEFL250C11 PO; +MAALSUS20 PO; +MIRA33504 PO; +PEPT262S PO; +POLY1POW4 GT; +REGL5TAB2 PO
[2016-12-31 15:23] LABS: FREE T4 1.08 NG/DL (0.76-1.46)
== END ==
LOC: M LAB REF 13:51
PROVIDERS: ATTEND Internal Medicine Medical Oncology
DX: D61.818 Other pancytopenia (principal); Z79.899 Other long term (current) drug therapy

== ENCOUNTER 2017-01-02 11:52 | Emergency (ER) | payer MEDICARE ==
[~2017-01-02] VITALS: Ht 162.6 cm; Wt 91.8 kg
[~2017-01-02 11:52] MED LIST changes: -DOXY100T PO; -FLON1SPR; -KEFL250C11 PO; -MAALSUS20 PO; -MIRA33504 PO; -PEPT262S PO; -POLY1POW4 GT
[2017-01-02 12:44] LABS: BASO % 0.4 % (0.0-1.0); IMMATURE GRANULOCYTE % 1.6 % (0-0); LYMPH # 0.8 10^3/uL (1.5-4.5); LYMPH % 32.7 % (24.0-44.0); MEAN CORPUSCULAR HEMOGLOBIN 35.2 pg (27.0-33.0); MEAN CORPUSCULAR HGB CONC 32.8 g/dl (32.0-36.5); MONO # 0.5 10^3/uL (0.0-0.8); MONO % 19.6 % (0.0-5.0); NEUTROPHILS # 1.1 10^3/uL (1.8-7.7); NEUTROPHILS % 45.7 % (36.0-66.0); PLATELET COUNT, AUTOMATED 175 10^3/uL (150-450); WHITE BLOOD COUNT 2.5 10^3/uL (4.0-10.0)
[2017-01-02 12:48] LABS: MEAN CORPUSCULAR VOLUME 107.2 fl (80.0-96.0); RED CELL DISTRIBUTION WIDTH 22.9 % (11.5-14.5)
[2017-01-02 12:49] LABS: ADD MORPHOLOGY? YES; PLT DIST POS FLAG; POSITIVE MORPH POS FLAG
[2017-01-02 13:04] LABS: CALCIUM LEVEL 8.4 MG/DL (8.8-10.2); CREATININE FOR GFR 1.03 MG/DL (0.55-1.02); GLOMERULAR FILTRATION RATE 55.2 (>39); POTASSIUM SERUM 4.6 MEQ/L (3.5-5.1)
--- NOTE | 2017-01-02 13:40 | REP ---
Portable chest, 12:55 p.m., single AP view, the patient semi upright: Comparison is 01/10/2016. There is cardiomegaly, unchanged. On the comparison study. Coronary artery endovascular stents can be identified. These are obscured by the portable technique on the current study. The lung stone are clear. The madhuri, mediastinum, and bony thorax are unremarkable. Impression: Chronic cardiomegaly. Coronary endovascular stents. No acute cardiopulmonary findings. Signed by Gerard Valencia MD 01/02/2017 01:30 P
[2017-01-02] MEDS ORDERED: FLEET ENEMA PR ONE (14:15)
[2017-01-02 15:21] VITALS: BP 154/68
--- NOTE | 2017-01-03 08:03 | ECGEPIP ---
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
[2017-01-14] MEDS ORDERED: PEPT262S PO (13:09)
[2017-01-14] MEDS ORDERED: MIRA33504 PO (13:09)
[2017-01-14] MEDS ORDERED: QUIN5TAB7 PO (13:10)
[2017-01-19] MEDS ORDERED: REGL5TAB2 PO (11:34)
[2017-01-19] MEDS ORDERED: DOXY100T PO (11:34)
[2017-01-19] MEDS ORDERED: FLON1SPR (11:37)
== END 2017-01-02 15:41 | disposition home or self-care (01) ==
LOC: EDBD 11:52 → M ED 11:52
DX: K59.00 Constipation, unspecified (principal); I48.91 Unspecified atrial fibrillation; I11.0 Hypertensive heart disease with heart failure; I50.9 Heart failure, unspecified; I25.2 Old myocardial infarction; D61.818 Other pancytopenia; D46.9 Myelodysplastic syndrome, unspecified; Z98.61 Coronary angioplasty status; Z88.5 Allergy status to narcotic agent; Z88.8 Allergy status to other drugs, medicaments and biological substances; Z79.82 Long term (current) use of aspirin; Z79.899 Other long term (current) drug therapy; Z79.52 Long term (current) use of systemic steroids

== ENCOUNTER 2017-01-03 12:32 | Emergency (ER) | payer MEDICARE ==
[~2017-01-03] VITALS: Ht 162.6 cm; Wt 90.7 kg
[2017-01-03] MEDS ORDERED: NS 1,000 ML IV SCH (13:03)
--- NOTE | 2017-01-03 15:11 | REP ---
Acute abdominal series including PA chest and supine upright abdomen, three views: PA chest: Comparison is 12/22/2012. Lung stone are clear. Cardiac size upper normal, unchanged. There is chronic elevation of the right hemidiaphragm, likely eventration. There is no free subdiaphragmatic air. The madhuri, mediastinum, bony thorax unremarkable. Impression: Essentially negative chest. There is no interval change. Abdomen, supine upright views: The bowel gas pattern is normal. There are pelvic calcifications, likely phleboliths although ureteral calculi are not entirely discounted. There is demineralization. There are surgical clips in the right upper quadrant. The study is otherwise unremarkable. Signed by Gerard Valencia MD 01/03/2017 03:03 P
[2017-01-03] MEDS ORDERED: ACETAMINOPHEN TAB 650MG DOSE (2X325MG) PO ONE (15:15)
[2017-01-03 15:21] VITALS: BP 130/79
[2017-01-14] MEDS ORDERED: MIRA33504 PO (13:09)
[2017-01-14] MEDS ORDERED: PEPT262S PO (13:09)
[2017-01-14] MEDS ORDERED: QUIN5TAB7 PO (13:10)
[2017-01-19] MEDS ORDERED: REGL5TAB2 PO (11:34)
[2017-01-19] MEDS ORDERED: DOXY100T PO (11:34)
[2017-01-19] MEDS ORDERED: FLON1SPR (11:37)
== END 2017-01-03 15:22 | disposition home or self-care (01) ==
LOC: M ED 12:32 → EDBD 12:32 → M ED 15:22
DX: K59.00 Constipation, unspecified (principal); I25.10 Atherosclerotic heart disease of native coronary artery without angina pectoris; I50.9 Heart failure, unspecified; I10 Essential (primary) hypertension; E78.4 Other hyperlipidemia; Z87.891 Personal history of nicotine dependence

== ENCOUNTER 2017-01-06 09:34 | Emergency (ER) | payer MEDICARE ==
[~2017-01-06] VITALS: Ht 154.9 cm; Wt 92.8 kg
[2017-01-06] MEDS ORDERED: QUIN5TAB7 (09:42)
[2017-01-06] MEDS ORDERED: MAGNESIUM CITRATE 300 ML BTL PO ONE (10:30)
--- NOTE | 2017-01-06 11:32 | REP ---
ABDOMEN SERIES: Three views. HISTORY: Possible constipation. Comparison radiographs January 03, 2017. FINDINGS: Upright chest radiograph is unremarkable and unchanged. Right hemidiaphragm is somewhat elevated as before. There is no evidence of infiltrate or free subdiaphragmatic air. Heart is unchanged and mildly prominent. Supine and erect views of the abdomen show air and some stool in a nondistended colon. There is no radiographic evidence of constipation. No small or large bowel dilation is seen. Psoas margins and flank stripes are intact bilaterally. There are clips in right upper quadrant. IMPRESSION: No evidence of obstruction or constipation seen. Right upper quadrant clips. Signed by Eligio Martini MD 01/06/2017 02:17 P
[2017-01-06] MEDS ORDERED: FLEET ENEMA PR PRN (12:00)
[2017-01-06] MEDS ORDERED: ONDANSETRON 4 MG ORAL DISINTEGRATING TAB (S0181) SL STA (12:30)
[2017-01-06 14:16] LABS: BASO % 0.4 % (0.0-1.0); IMMATURE GRANULOCYTE % 0.9 % (0-0); LYMPH # 0.8 10^3/uL (1.5-4.5); LYMPH % 33.6 % (24.0-44.0); MEAN CORPUSCULAR HGB CONC 32.4 g/dl (32.0-36.5); MONO # 0.6 10^3/uL (0.0-0.8); MONO % 27.2 % (0.0-5.0); NEUTROPHILS % 37.9 % (36.0-66.0); PLATELET COUNT, AUTOMATED 225 10^3/uL (150-450); WHITE BLOOD COUNT 2.3 10^3/uL (4.0-10.0)
[2017-01-06 14:29] LABS: ALBUMIN 3.4 GM/DL (3.2-5.2); ALBUMIN/GLOBULIN RATIO 0.83 (1.00-1.93); ALKALINE PHOSPHATASE 54 U/L (45-117); ALT/SGPT 25 U/L (12-78); ANION GAP 5 MEQ/L (8-16); AST/SGOT 14 U/L (15-37); BILIRUBIN,TOTAL 0.8 MG/DL (0.2-1.0); BLOOD UREA NITROGEN 18 MG/DL (7-18); CALCIUM LEVEL 9.4 MG/DL (8.8-10.2); CARBON DIOXIDE LEVEL 31 MEQ/L (21-32); CHLORIDE LEVEL 100 MEQ/L (98-107); CREATININE FOR GFR 0.88 MG/DL (0.55-1.02); GLOMERULAR FILTRATION RATE > 60.0 (>39); GLUCOSE, FASTING 146 MG/DL (83-110); POTASSIUM SERUM 4.4 MEQ/L (3.5-5.1); SODIUM LEVEL 136 MEQ/L (136-145); TOTAL PROTEIN 7.5 GM/DL (6.4-8.2)
[2017-01-06 15:09] LABS: MEAN CORPUSCULAR VOLUME 108.2 fl (80.0-96.0); NEUTROPHILS # 0.9 10^3/uL (1.8-7.7); POSITIVE DIFF POS FLAG; POSITIVE MORPH POS FLAG; RED CELL DISTRIBUTION WIDTH 23.3 % (11.5-14.5)
[2017-01-06 15:10] LABS: ADD MORPHOLOGY? YES; PLT CLUMPS? POS FLAG; POS COUNT POS FLAG
[2017-01-06 15:11] LABS: ANISOCYTOSIS 2+; MICROCYTOSIS 1+; POLYCHROMASIA 1+
[2017-01-06 15:23] VITALS: BP 137/71
[2017-01-14] MEDS ORDERED: MIRA33504 PO (13:09)
[2017-01-14] MEDS ORDERED: PEPT262S PO (13:09)
[2017-01-14] MEDS ORDERED: QUIN5TAB7 PO (13:10)
[2017-01-19] MEDS ORDERED: REGL5TAB2 PO (11:34)
[2017-01-19] MEDS ORDERED: DOXY100T PO (11:34)
[2017-01-19] MEDS ORDERED: FLON1SPR (11:37)
== END 2017-01-06 15:27 | disposition home or self-care (01) ==
LOC: M ED 09:34
DX: R10.9 Unspecified abdominal pain (principal); G89.29 Other chronic pain

== ENCOUNTER 2017-01-11 09:46 | Emergency (ER) | payer MEDICARE ==
[~2017-01-11] VITALS: Ht 162.6 cm; Wt 90.5 kg
[2017-01-11] MEDS ORDERED: KEFL250C11 PO (10:06)
[2017-01-11 12:05] LABS: MEAN CORPUSCULAR HEMOGLOBIN 34.5 pg (27.0-33.0); MEAN CORPUSCULAR HGB CONC 31.9 g/dl (32.0-36.5); MEAN CORPUSCULAR VOLUME 108.1 fl (80.0-96.0); PLATELET COUNT, AUTOMATED 214 10^3/uL (150-450); WHITE BLOOD COUNT 2.7 10^3/uL (4.0-10.0)
[2017-01-11 12:10] LABS: POSITIVE DIFF POS FLAG; POSITIVE MORPH POS FLAG
[2017-01-11 12:11] LABS: ADD MANUAL DIFFER YES; BLASTS POS FLAG; DIFF SLIDE NUMBER 174
--- NOTE | 2017-01-11 12:13 | REP ---
CHEST, TWO VIEWS: Two views of the chest are performed and compared to multiple prior exams, the most recent of which is a single view chest, 01/06/2017. There is mild elevation of the right hemidiaphragm with mild bibasilar fibrotic change, stable. No new infiltrates are seen. There is very mild cardiomegaly. There is mild calcification and tortuosity of the thoracic aorta. Mediastinal silhouette is unchanged. There are degenerative changes of the spine. IMPRESSION: Stable chronic findings without evidence of acute pulmonary disease. Signed by Gerard Kurtz MD 01/11/2017 01:26 P
[2017-01-11 12:19] LABS: ALBUMIN 3.2 GM/DL (3.2-5.2); ALBUMIN/GLOBULIN RATIO 0.82 (1.00-1.93); BILIRUBIN,TOTAL 0.7 MG/DL (0.2-1.0); CALCIUM LEVEL 9.4 MG/DL (8.8-10.2); CREATININE FOR GFR 0.97 MG/DL (0.55-1.02); GLOMERULAR FILTRATION RATE 59.1 (>39); POTASSIUM SERUM 4.2 MEQ/L (3.5-5.1); TOTAL PROTEIN 7.1 GM/DL (6.4-8.2)
[2017-01-11 12:40] LABS: BANDS 2 % (< 11)
[2017-01-11 12:41] LABS: ANISOCYTOSIS 2+; POIKILOCYTOSIS 1+; POLYCHROMASIA 1+
[2017-01-11] MEDS ORDERED: MAALSUS20 PO (13:39)
[2017-01-11 13:41] VITALS: BP 130/76
[2017-01-11] MEDS ORDERED: POLY1POW4 GT (13:42)
--- NOTE | 2017-01-12 08:53 | ECGEPIP ---
Stationary ECG Study 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
[2017-01-14] MEDS ORDERED: PEPT262S PO (13:09)
[2017-01-14] MEDS ORDERED: MIRA33504 PO (13:09)
[2017-01-14] MEDS ORDERED: QUIN5TAB7 PO (13:10)
[2017-01-19] MEDS ORDERED: REGL5TAB2 PO (11:34)
[2017-01-19] MEDS ORDERED: DOXY100T PO (11:34)
[2017-01-19] MEDS ORDERED: FLON1SPR (11:37)
== END 2017-01-11 14:14 | disposition home or self-care (01) ==
LOC: M ED 09:46
DX: D46.9 Myelodysplastic syndrome, unspecified (principal); R11.0 Nausea; R53.83 Other fatigue; D64.9 Anemia, unspecified

== ENCOUNTER → 2017-01-21 | Outpatient (REF) | payer MEDICARE ==
[~2017-01-21] MED LIST changes: +DOXY100T PO; +FLON1SPR; +KEFL250C11 PO; +MAALSUS20 PO; +MIRA33504 PO; +PEPT262S PO; +POLY1POW4 GT
[2017-01-21 17:23] LABS: FREE T4 1.54 NG/DL (0.76-1.46); PERCENT SATURATION 49.7 % (13.2-45.0)
== END ==
LOC: M LAB REF 16:37
PROVIDERS: ATTEND Internal Medicine Medical Oncology
DX: D61.818 Other pancytopenia (principal); R59.9 Enlarged lymph nodes, unspecified

== ENCOUNTER 2017-01-23 08:54 | Inpatient (IN) | payer MEDICARE ==
[~2017-01-23] VITALS: Ht 162.6 cm; Wt 96.3 kg
[2017-01-23] MEDS: METOPROLOL 5 MG/5 ML VIAL IV SCH ×3 (09:30→09:40)
[2017-01-23] MEDS ORDERED: METOPROLOL TART 25 MG TABLET PO ONE (09:30)
[2017-01-23 09:49] LABS: MEAN CORPUSCULAR HEMOGLOBIN 33.5 pg (27.0-33.0); MEAN CORPUSCULAR HGB CONC 32.8 g/dl (32.0-36.5); MEAN CORPUSCULAR VOLUME 102.3 fl (80.0-96.0); RED CELL DISTRIBUTION WIDTH 21.2 % (11.5-14.5); WHITE BLOOD COUNT 3.2 10^3/uL (4.0-10.0)
[2017-01-23 10:24] LABS: PLT CLUMPS? POS FLAG; POS COUNT POS FLAG
[2017-01-23 10:58] LABS: ANION GAP 11 MEQ/L (8-16); BLOOD UREA NITROGEN 14 MG/DL (7-18); CALCIUM LEVEL 9.1 MG/DL (8.8-10.2); CARBON DIOXIDE LEVEL 24 MEQ/L (21-32); CHLORIDE LEVEL 107 MEQ/L (98-107); CREATININE FOR GFR 0.92 MG/DL (0.55-1.02); GLOMERULAR FILTRATION RATE > 60.0 (>39); GLUCOSE, FASTING 125 MG/DL (83-110); POTASSIUM SERUM 4.4 MEQ/L (3.5-5.1); SODIUM LEVEL 142 MEQ/L (136-145)
[2017-01-23 14:00] VITALS: BP 136/80
[2017-01-23] MEDS: METOPROLOL TART 25 MG TABLET PO SCH ×2 (14:38→19:51)
--- NOTE | 2017-01-23 14:44 | HPE ---
DATE OF ADMISSION: 01/23/2017 PRIMARY CARE PROVIDER: Dr. Orlando Sigala ONCOLOGIST: Dr. Adelso Chappell CHIEF COMPLAINT: "I feel awful". SUMMARY OF PRESENTATION: This is a 76-year-old who was admitted to [facility] on 01/14/2017 to 01/19/2017. She was treated for generalized weakness and nausea. She has chronic myelodysplasia and atrial fibrillation which is rate controlled but specifically not anticoagulated. She had symptomatic anemia, received transfusions, went home. She said she was not feeling very well at home. She had increasing shortness of breath. She was shaking, tired, was having trouble eating and drinking because of decreased appetite. It sounds as though she had a metallic taste in her mouth and some dryness of her lips. No fever or chills. She was brought to the hospital today for evaluation and was found to be in atrial fibrillation with rapid ventricular rate (RVR). I was called for admission. PAST MEDICAL HISTORY: Coronary artery disease Atrial fibrillation. Hypothyroidism. Reflux. Hypertension. Myelodysplastic syndrome. Pancytopenia requiring red blood cells transfusions. PAST SURGICAL HISTORY: Percutaneous coronary intervention (PCI). Cholecystectomy. Tonsillectomy. Dilation and curettage (D and C). Lung biopsy. Bone marrow biopsy. SOCIAL HISTORY: She does not use alcohol or tobacco. FAMILY HISTORY: Unremarkable due to advanced age. ALLERGIES: Codeine, morphine, prednisone, propoxyphene, Xanthiol. DISCHARGE MEDICATIONS: - aspirin 81 mg daily - Zebeta 5 mg twice a day - doxycycline 100 mg by mouth twice a day - Synthroid 100 mcg every morning - Reglan 5 mg by mouth nightly and every morning - Protonix 40 mg daily - MiraLAX daily - vitamin B6 supplement. - Quinapril 2.5 mg daily - spironolactone 12.5 mg daily - Tylenol - Pepto Bismol - hydrocortisone - sublingual nitro REVIEW OF SYSTEMS: As previously stated and is otherwise negative. PHYSICAL EXAMINATION: Temperature 97.9, pulse is currently 95, respiratory rate 16, blood pressure 148/97, 98% on room air. She is a 76-year-old in no acute distress laying in bed. Head is normocephalic. Pupils equal, round and reactive. Anicteric. Nasal septum is midline. Mucous membranes moist. There is some dryness to her lips without any specific lesion. Neck is supple. No cervical or supraclavicular adenopathy. Breathing is symmetrical at rest. I/E ratio 1:3. Heart is in a regular rate and rhythm. Normal S1, S2. Is not tachycardic. Radial pulses are 2+. Capillary refill is less than 2 seconds. Abdomen is soft, doughy, not tender. There is no lower extremity edema. There is some bruising which appears old around her left ankle, nontender. Cranial nerves II through XII are grossly intact. She has a somewhat flattened affect. White blood cell count 3.2, hemoglobin 10.4, platelets are clumped and so are not read. Sodium 142, potassium 4.4, chloride 107, bicarbonate 24, BUN 14, creatinine 0.92 and glucose 125. There is no imaging done today. EKG: Atrial fibrillation with RVR is not available for review at this moment. ASSESSMENT: This is a 76-year-old with atrial fibrillation RVR, multiple medical comorbidities will be admitted for rate control for a two-midnight hospital stay. PLAN: 1. Cardiovascular: The patient has atrial fibrillation and is not anticoagulated. Will rate control with metoprolol. Discontinue Zebeta. She is not anticoagulated intentionally. 2. The patient has mild evolving myelodysplastic syndrome. Will repeat that on Wednesday, when it is available. Follow pancytopenia. The patient did require blood transfusions during the last visit. 3. The patient has B6 deficiency. She will be continued. 4. The patient has had symptoms of reflux. Will continue her home regimen. 5. The patient has hypothyroidism that was checked last visit. She is not currently hypothyroid or hyperthyroid. 6. Deep venous thrombosis prophylaxis: Mechanical in this setting.
[2017-01-23 16:00] VITALS: BP 128/60
[2017-01-23] MEDS: ACETAMINOPHEN TAB 650MG DOSE (2X325MG) PO PRN (19:50)
[2017-01-23] MEDS: ONDANSETRON 4MG/2ML VIAL (J2405) IV PRN (19:50)
[2017-01-23 20:00] VITALS: BP 126/64
[2017-01-23 20:40] LABS: MAGNESIUM LEVEL 2.2 MG/DL (1.8-2.4)
[2017-01-23 23:59] VITALS: BP 139/79
[2017-01-24] VITALS (7 sets, daily range): BP systolic 120–150; BP diastolic 55–86
[2017-01-24] MEDS: ACETAMINOPHEN TAB 650MG DOSE (2X325MG) PO PRN ×3 (00:21→21:01)
[2017-01-24] MEDS: METOPROLOL TART 25 MG TABLET PO SCH (03:26)
[2017-01-24 05:14] LABS: MEAN CORPUSCULAR HEMOGLOBIN 33.1 pg (27.0-33.0); MEAN CORPUSCULAR HGB CONC 31.9 g/dl (32.0-36.5); MEAN CORPUSCULAR VOLUME 103.7 fl (80.0-96.0); RED CELL DISTRIBUTION WIDTH 20.5 % (11.5-14.5); WHITE BLOOD COUNT 3.3 10^3/uL (4.0-10.0)
[2017-01-24 05:26] LABS: CALCIUM LEVEL 9.2 MG/DL (8.8-10.2); CREATININE FOR GFR 1.07 MG/DL (0.55-1.02); GLOMERULAR FILTRATION RATE 52.8 (>39); MAGNESIUM LEVEL 2.2 MG/DL (1.8-2.4); POTASSIUM SERUM 4.6 MEQ/L (3.5-5.1)
[2017-01-24 05:52] LABS: PLT CLUMPS? POS FLAG; POS COUNT POS FLAG
[2017-01-24] MEDS: LEVOTHYROXINE 100MCG TABLET (0.1MG) PO SCH (06:44)
--- NOTE | 2017-01-24 07:18 | ECGEPIP ---
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
[2017-01-24 07:59] LABS: THYROXINE (T4) 9.3 UG/DL (4.5-12.0)
--- NOTE | 2017-01-24 08:16 | REP ---
Chest one-view HISTORY: Atrial fibrillation Comparison: 01/14/2017 The lungs are clear. The cardiac silhouette is enlarged. The pulmonary vasculature is normal in appearance. Impression: Cardiomegaly. Signed by Heraclio Le MD 01/24/2017 08:07 A
[2017-01-24] MEDS ORDERED: LEVOTHYROXINE 100MCG TABLET (0.1MG) PO SCH (09:00)
[2017-01-24] MEDS: ASPIRIN 81 MG ENTERIC TAB PO SCH (09:07)
[2017-01-24] MEDS: METOCLOPRAMIDE 5 MG TAB PO SCH ×4 (09:08→21:01)
[2017-01-24] MEDS: PYRIDOXINE 50 MG TAB PO SCH (09:08)
[2017-01-24] MEDS: SPIRONOLACTONE 25 MG TAB PO SCH (09:08)
[2017-01-24] MEDS: PANTOPRAZOLE 40MG TAB (PROTONIX) PO SCH (09:09)
[2017-01-24] MEDS: MIRALAX *UNIT DOSE* 17GM PACKET PO SCH (09:09)
--- NOTE | 2017-01-24 09:51 | IPNPDOC ---
Text Note Date of Service The patient was seen on 01/24/17. NOTE No acute events overnight. Reported generalized weakness, and diffuse arthralgia. Denied CP, sob, abd pain, n/v/diarrhea, reported poor oral intact. Gen frail, NAD HEENT NC AT, PERRL MMM Neck supple pul CTA bl CAR tahcy irregular abd soft nt nd +BS EXt no edema b/l le Coronary artery disease Atrial fibrillation. Hypothyroidism. Reflux. Hypertension. Myelodysplastic syndrome. Pancytopenia requiring red blood cells transfusions. 76-year-old with h/o CAF, A fib, Hypothyroid, GERD, HTN, Myelodysplastic syndrome, Pancytopenia required transfusion before, presented with generalized weakness and atrial fibrillation RVR 1. a fib with RVR dc Zebeta, lopressor dose increased, not on AC 2/ to h/o GI please and thrombocytopenia tele ce neg thyroid profile wnl 2. The patient has mild evolving myelodysplastic syndrome. Will repeat that on Wednesday, when it is available. Follow pancytopenia. The patient did require blood transfusions during the last visit. consider hem/onc consult 3. The patient has B6 deficiency. She will be continued. 4. The patient has had symptoms of reflux. Will continue her home regimen. 5. The patient has hypothyroidism , thyroid profile c/w home med 6. CAD asa, bb, tele ce neg spironolactone 7 Generalized weakness 2/2 to hematologic disease vs deconditioning, no signs of infection PE PFS possible placement 6. Deep venous thrombosis prophylaxis: Mechanical in this setting.given h/o bleeding and hematologic disorder Dispo placement VS,Fishbone, I+O VS, Fishbone, I+O Laboratory Tests 01/23/17 09:41 Red Blood Count 3.10 L, Mean Corpuscular Volume 102.3 H, Mean Corpuscular Hemoglobin 33.5 H, Mean Corpuscular Hemoglobin Concent 32.8, Red Cell Distribution Width 21.2 H 01/23/17 10:33 Calcium Level 9.1 01/24/17 04:48 Red Blood Count 2.96 L, Mean Corpuscular Volume 103.7 H, Mean Corpuscular Hemoglobin 33.1 H, Mean Corpuscular Hemoglobin Concent 31.9 L, Red Cell Distribution Width 20.5 H, Calcium Level 9.2, Total Creatine Kinase 55 Vital Signs Date Time Temp Pulse Resp B/P (MAP) Pulse Ox O2 Delivery O2 Flow Rate FiO2 01/24/17 07:52 96.6 120 18 120/68 (85) 98 Room Air I&O- Last 24 Hours up to 6 AM 01/25/17 06:00 Intake Total 240 ml Output Total 550 ml Balance -310 ml LEX LAWRENCE MD Jan 24, 2017 09:51
[2017-01-24] MEDS ORDERED: METOPROLOL TART 25 MG TABLET PO SCH (11:00)
[2017-01-24] MEDS: METOPROLOL TART 50 MG TAB PO SCH (16:49)
[2017-01-24] MEDS: FLUTICASONE PROP 0.05% NASAL SPRAY 16 GM (FLONASE) SCH (18:33)
[2017-01-24] MEDS ORDERED: DIGOXIN INJ 0.5 MG/2 ML AMP (J1160) IV ONE (18:45)
[2017-01-25] VITALS (7 sets, daily range): BP systolic 102–137; BP diastolic 52–80
[2017-01-25] MEDS ORDERED: DIGOXIN INJ 0.5 MG/2 ML AMP (J1160) IV ONE
[2017-01-25] MEDS: ACETAMINOPHEN TAB 650MG DOSE (2X325MG) PO PRN ×4 (00:04→20:51)
[2017-01-25] MEDS: METOPROLOL TART 50 MG TAB PO SCH ×4 (00:06→17:28)
[2017-01-25 05:33] LABS: MEAN CORPUSCULAR HEMOGLOBIN 33.7 pg (27.0-33.0); MEAN CORPUSCULAR HGB CONC 32.7 g/dl (32.0-36.5); RED CELL DISTRIBUTION WIDTH 20.3 % (11.5-14.5); WHITE BLOOD COUNT 3.1 10^3/uL (4.0-10.0)
[2017-01-25] MEDS: LEVOTHYROXINE 100MCG TABLET (0.1MG) PO SCH (05:35)
[2017-01-25 05:41] LABS: REASON FOR REVIEW COMPREHENSIVE REVIEW
[2017-01-25 05:55] LABS: CALCIUM LEVEL 9.3 MG/DL (8.8-10.2); GLOMERULAR FILTRATION RATE 57.1 (>39); MAGNESIUM LEVEL 2.4 MG/DL (1.8-2.4); POTASSIUM SERUM 4.5 MEQ/L (3.5-5.1)
[2017-01-25 05:57] LABS: PLT CLUMPS? POS FLAG; POS COUNT POS FLAG
[2017-01-25] MEDS: MIRALAX *UNIT DOSE* 17GM PACKET PO SCH (09:00)
[2017-01-25] MEDS: PYRIDOXINE 50 MG TAB PO SCH (09:15)
[2017-01-25] MEDS: ASPIRIN 81 MG ENTERIC TAB PO SCH (09:16)
[2017-01-25] MEDS: METOCLOPRAMIDE 5 MG TAB PO SCH ×4 (09:16→20:51)
[2017-01-25] MEDS: PANTOPRAZOLE 40MG TAB (PROTONIX) PO SCH (09:16)
[2017-01-25] MEDS: DIGOXIN 0.125 MG TAB PO SCH (09:18)
[2017-01-25] MEDS: SPIRONOLACTONE 25 MG TAB PO SCH (09:20)
[2017-01-25] MEDS: FLUTICASONE PROP 0.05% NASAL SPRAY 16 GM (FLONASE) SCH (09:22)
[2017-01-25 10:17] LABS: MEAN CORPUSCULAR HEMOGLOBIN 33.6 pg (27.0-33.0); MEAN CORPUSCULAR HGB CONC 31.9 g/dl (32.0-36.5); MEAN CORPUSCULAR VOLUME 105.2 fl (80.0-96.0); PLATELET COUNT, AUTOMATED 350 10^3/uL (150-450); RED CELL DISTRIBUTION WIDTH 20.3 % (11.5-14.5); WHITE BLOOD COUNT 3.1 10^3/uL (4.0-10.0)
[2017-01-25 10:34] LABS: BLASTS POS FLAG; PLT CLUMPS? POS FLAG; POS COUNT POS FLAG; POSITIVE DIFF POS FLAG; POSITIVE MORPH POS FLAG
[2017-01-25 10:35] LABS: ADD MANUAL DIFFER YES; DIFF SLIDE NUMBER 190
[2017-01-25 11:32] LABS: BANDS 4 % (< 11)
[2017-01-25 11:33] LABS: ANISOCYTOSIS 2+; POIKILOCYTOSIS 1+
--- NOTE | 2017-01-25 12:06 | IPNPDOC ---
Text Note Date of Service The patient was seen on 01/25/17. NOTE No acute events overnight. Reported generalized weakness, and diffuse arthralgia. Denied CP, sob, abd pain, n/v/diarrhea, reported poor oral intact. Gen frail, NAD HEENT NC AT, PERRL MMM Neck supple pul CTA bl CAR tahcy irregular abd soft nt nd +BS EXt no edema b/l le 76-year-old with h/o CAF, A fib, Hypothyroid, GERD, HTN, Myelodysplastic syndrome, Pancytopenia required transfusion before, presented with generalized weakness and atrial fibrillation RVR 1. a fib with RVR dc Zebeta, lopressor dose increased, not on AC 2/2 to h/o GI please and thrombocytopenia Dig loaded, digoxin 0.125mg Po daily tele ce neg thyroid profile wnl 2. The patient has mild evolving myelodysplastic syndrome. Will repeat that on Wednesday, when it is available. Follow pancytopenia. The patient did require blood transfusions during the last visit. d/c Dr Castellon possible progression to acute leukemia, aware of blast in smear, not a candidate for induction chemo, consider palliative if patient worsen 3. The patient has B6 deficiency. She will be continued. 4. The patient has had symptoms of reflux. Will continue her home regimen. 5. The patient has hypothyroidism , thyroid profile c/w home med 6. CAD asa, bb, tele ce neg spironolactone 7 Generalized weakness 2/2 to hematologic disease vs deconditioning, no signs of infection PE PFS possible placement 6. Deep venous thrombosis prophylaxis: Mechanical in this setting.given h/o bleeding and hematologic disorder Dispo placement VS,Fishbone, I+O VS, Fishbone, I+O Laboratory Tests 01/25/17 04:58 Red Blood Count 2.97 L, Mean Corpuscular Volume 103.0 H, Mean Corpuscular Hemoglobin 33.7 H, Mean Corpuscular Hemoglobin Concent 32.7, Red Cell Distribution Width 20.3 H, Calcium Level 9.3 01/25/17 10:03 Red Blood Count 3.07 L, Mean Corpuscular Volume 105.2 H, Mean Corpuscular Hemoglobin 33.6 H, Mean Corpuscular Hemoglobin Concent 31.9 L, Red Cell Distribution Width 20.3 H, Neutrophils # (Auto) Vital Signs Date Time Temp Pulse Resp B/P (MAP) Pulse Ox O2 Delivery O2 Flow Rate FiO2 01/25/17 09:18 73 01/25/17 07:45 Room Air 01/25/17 07:20 96.5 18 122/79 (93) 95 I&O- Last 24 Hours up to 6 AM 01/26/17 06:00 Intake Total 360 ml Output Total 500 ml Balance -140 ml LEX LAWRENCE MD Jan 25, 2017 12:06
[2017-01-25] MEDS ORDERED: SLF 3 ML SYR IV PRN (15:45)
[2017-01-25] MEDS: SLF 3 ML SYR IV SCH (20:51)
[2017-01-25 22:22] LABS: REASON FOR REVIEW COMPREHENSIVE REVIEW
[2017-01-26] VITALS (9 sets, daily range): BP systolic 118–160; BP diastolic 60–82
[2017-01-26] MEDS: METOPROLOL TART 50 MG TAB PO SCH ×5 (00:25→23:55)
[2017-01-26 05:56] LABS: MEAN CORPUSCULAR HEMOGLOBIN 33.3 pg (27.0-33.0); MEAN CORPUSCULAR HGB CONC 32.2 g/dl (32.0-36.5); MEAN CORPUSCULAR VOLUME 103.5 fl (80.0-96.0); PLATELET COUNT, AUTOMATED 285 10^3/uL (150-450); RED CELL DISTRIBUTION WIDTH 20.3 % (11.5-14.5)
[2017-01-26] MEDS: LEVOTHYROXINE 100MCG TABLET (0.1MG) PO SCH (06:15)
[2017-01-26] MEDS: SLF 3 ML SYR IV SCH ×3 (06:15→22:00)
[2017-01-26 06:25] LABS: CALCIUM LEVEL 9.3 MG/DL (8.8-10.2); CREATININE FOR GFR 0.98 MG/DL (0.55-1.02); DIGOXIN LEVEL 1.5 NG/ML (0.5-2.0); GLOMERULAR FILTRATION RATE 58.4 (>39); MAGNESIUM LEVEL 2.2 MG/DL (1.8-2.4); POTASSIUM SERUM 4.7 MEQ/L (3.5-5.1)
[2017-01-26] MEDS: PYRIDOXINE 50 MG TAB PO SCH (08:19)
[2017-01-26] MEDS: METOCLOPRAMIDE 5 MG TAB PO SCH ×4 (08:19→21:00)
[2017-01-26] MEDS: ASPIRIN 81 MG ENTERIC TAB PO SCH (08:19)
[2017-01-26] MEDS: DIGOXIN 0.125 MG TAB PO SCH (08:19)
[2017-01-26] MEDS: SPIRONOLACTONE 25 MG TAB PO SCH (08:20)
[2017-01-26] MEDS: PANTOPRAZOLE 40MG TAB (PROTONIX) PO SCH (08:20)
[2017-01-26] MEDS: MIRALAX *UNIT DOSE* 17GM PACKET PO SCH (08:20)
[2017-01-26] MEDS: FLUTICASONE PROP 0.05% NASAL SPRAY 16 GM (FLONASE) SCH (08:20)
[2017-01-26] MEDS: ACETAMINOPHEN TAB 650MG DOSE (2X325MG) PO PRN ×2 (10:22→23:56)
[2017-01-26] MEDS: PINK BISMUTH SUSP 524MG/30ML ORAL SYRINGE PO PRN (14:11)
--- NOTE | 2017-01-26 15:19 | IPNPDOC ---
Subjective Date Seen The patient was seen on 01/26/17. Subjective Chief Complaint/HPI Patient seen and examined at the bedside. She states that she is concerned about being discharged home, as she does not feel like she is safe to return home and that she has too many responsibilities there with her daughter who also has medical needs. Objective Physical Examination General Exam: Positive: Alert, Cooperative, No Acute Distress ENT Exam: Positive: Atraumatic, Mucous membr. moist/pink Neck Exam: Negative: JVD Chest Exam: Positive: Clear to auscultation, Normal air movement Heart Exam: Positive: Rate Normal, Normal S1, Normal S2 Abdomen Exam: Positive: Soft, Negative: Tenderness Extremity Exam: Negative: Tenderness, Swelling Psych Exam: Positive: Oriented x 3 Assessment /Plan Plan/VTE VTE Prophylaxis Ordered?: Yes Plan Atrial Fibrillation with RVR, resolved Rate Controlled on Metoprolol q6h, Digoxin Not on any AC 2/2 to h/o GI please and thrombocytopenia Thyroid profile wnl Hx of Myelodysplastic Syndrome. Peripheral Smear notable for scattered circulating blasts on this admission The case was discussed with Dr. Castellon by colleague about the possible progression to acute leukemia given circulating blasts---He stated that the patient is not a candidate for induction chemo, and consideration to palliative care should be given if the patient's condition worsens B6 deficiency Cont Vit supplementation GERD Will continue home regimen. Hypothyroidism Cont Levothyroxine Hx of CAD Cont ASA, Metoprolol Generalized Weakness 2/2 to hematologic disease vs progressive muscular deconditioning No signs of infection, or acute neurological event PT on board for functional optimization PFS on board for possible placement Deep venous thrombosis prophylaxis TEDs/SCDs Dispo--PT on board for functional optimization, PFS for possible placement VS, [facility] Sign[facility]/I&O Vital Signs Date Time Temp Pulse Resp B/P (MAP) Pulse Ox O2 Delivery O2 Flow Rate FiO2 01/26/17 14:28 97.6 88 20 160/70 (100) 98 Room Air I&O- Last 24 Hours up to 6 AM 01/27/17 06:00 Intake Total 360 ml Output Total 200 ml Balance 160 ml Laboratory Data 24H LABS Laboratory Tests 2 01/26/17 05:31: Nucleated Red Blood Cells % (auto) 2.0H, Anion Gap 6L, Glomerular Filtration Rate 58.4, Blood Urea Nitrogen 13, Creatinine 0.98, Sodium Level 144, Potassium Level 4.7, Chloride Level 109H, Carbon Dioxide Level 29, Calcium Level 9.3, Magnesium Level 2.2, Digoxin Level 1.5 CBC/BMP Laboratory Tests 01/26/17 05:31 Red Blood Count 2.88 L, Mean Corpuscular Volume 103.5 H, Mean Corpuscular Hemoglobin 33.3 H, Mean Corpuscular Hemoglobin Concent 32.2, Red Cell Distribution Width 20.3 H, Calcium Level 9.3 HELEN HOBSON MD Jan 26, 2017 15:19
[2017-01-27] VITALS (9 sets, daily range): BP systolic 109–146; BP diastolic 53–76
[2017-01-27] MEDS: METOPROLOL TART 50 MG TAB PO SCH ×4 (05:56→23:32)
[2017-01-27] MEDS: LEVOTHYROXINE 100MCG TABLET (0.1MG) PO SCH (05:56)
[2017-01-27] MEDS: SLF 3 ML SYR IV SCH ×3 (05:57→20:58)
[2017-01-27 06:44] LABS: MEAN CORPUSCULAR HEMOGLOBIN 33.3 pg (27.0-33.0); MEAN CORPUSCULAR HGB CONC 32.5 g/dl (32.0-36.5); MEAN CORPUSCULAR VOLUME 102.5 fl (80.0-96.0); RED CELL DISTRIBUTION WIDTH 20.3 % (11.5-14.5); WHITE BLOOD COUNT 3.4 10^3/uL (4.0-10.0)
[2017-01-27 07:15] LABS: CALCIUM LEVEL 9.2 MG/DL (8.8-10.2); CREATININE FOR GFR 1.06 MG/DL (0.55-1.02); GLOMERULAR FILTRATION RATE 53.4 (>39); MAGNESIUM LEVEL 2.1 MG/DL (1.8-2.4)
[2017-01-27 07:17] LABS: PLT CLUMPS? POS FLAG; POS COUNT POS FLAG
[2017-01-27 07:18] LABS: PLATELET COUNT, AUTOMATED 300 10^3/uL (150-450)
[2017-01-27] MEDS: METOCLOPRAMIDE 5 MG TAB PO SCH ×4 (07:30→20:58)
[2017-01-27] MEDS: ASPIRIN 81 MG ENTERIC TAB PO SCH (09:24)
[2017-01-27] MEDS: PYRIDOXINE 50 MG TAB PO SCH (09:24)
[2017-01-27] MEDS: PANTOPRAZOLE 40MG TAB (PROTONIX) PO SCH (09:24)
[2017-01-27] MEDS: DIGOXIN 0.125 MG TAB PO SCH (09:24)
[2017-01-27] MEDS: SPIRONOLACTONE 25 MG TAB PO SCH (09:25)
[2017-01-27] MEDS: FLUTICASONE PROP 0.05% NASAL SPRAY 16 GM (FLONASE) SCH (09:25)
[2017-01-27] MEDS: ONDANSETRON 4MG/2ML VIAL (J2405) IV PRN ×3 (10:02→20:58)
[2017-01-27] MEDS: MIRALAX *UNIT DOSE* 17GM PACKET PO SCH (10:03)
[2017-01-27] MEDS: ACETAMINOPHEN TAB 650MG DOSE (2X325MG) PO PRN (13:05)
--- NOTE | 2017-01-27 13:57 | IPNPDOC ---
Subjective Date Seen The patient was seen on 01/27/17. Subjective Chief Complaint/HPI Patient seen and examined at the bedside. She is once again voicing her concern about returning home, and her inability to take care of her daughter who has multiple medical needs. I did address this issue with the patient and her family extensively at the bedside. The patient seems to be doing reasonably well with physical therapy, and would likely benefit from discharge home with services versus placement in an assisted living facility. Objective Physical Examination General Exam: Positive: Alert, Cooperative, No Acute Distress ENT Exam: Positive: Atraumatic, Mucous membr. moist/pink Neck Exam: Negative: JVD Chest Exam: Positive: Clear to auscultation, Normal air movement Heart Exam: Positive: Rate Normal, Normal S1, Normal S2 Abdomen Exam: Positive: Soft, Negative: Tenderness Extremity Exam: Negative: Tenderness, Swelling Psych Exam: Positive: Oriented x 3 Assessment /Plan Plan/VTE VTE Prophylaxis Ordered?: Yes Plan Atrial Fibrillation with RVR, resolved Rate Controlled on Metoprolol q6h, Digoxin Not on any AC 2/2 to h/o GI please and thrombocytopenia Thyroid profile wnl Hx of Myelodysplastic Syndrome. Peripheral Smear notable for scattered circulating blasts on this admission The case was discussed with Dr. Castellon by colleague about the possible progression to acute leukemia given circulating blasts---He stated that the patient is not a candidate for induction chemo, and consideration to palliative care should be given if the patient's condition worsens B6 deficiency Cont Vit supplementation GERD Will continue home regimen. Hypothyroidism Cont Levothyroxine Hx of CAD Cont ASA, Metoprolol Generalized Weakness 2/2 to hematologic disease vs progressive muscular deconditioning No signs of infection, or acute neurological event PT on board for functional optimization PFS on board for possible placement Deep venous thrombosis prophylaxis TEDs/SCDs Dispo--PT on board for functional optimization, PFS for possible placement. The patient will be transitioned to ALC Status. VS, I&O, 24H, Fishbone Vital Signs/I&O Vital Signs Date Time Temp Pulse Resp B/P (MAP) Pulse Ox O2 Delivery O2 Flow Rate FiO2 01/27/17 13:05 94 138/62 01/27/17 12:59 96.9 23 95 Room Air I&O- Last 24 Hours up to 6 AM 01/28/17 06:00 Intake Total 840 ml Output Total 50 ml Balance 790 ml Laboratory Data 24H LABS Laboratory Tests 2 01/27/17 06:09: Nucleated Red Blood Cells % (auto) 1.5H, Anion Gap 8, Glomerular Filtration Rate 53.4, Blood Urea Nitrogen 16, Creatinine 1.06H, Sodium Level 142, Potassium Level 4.0, Chloride Level 108H, Carbon Dioxide Level 26, Calcium Level 9.2, Magnesium Level 2.1 CBC/BMP Laboratory Tests 01/27/17 06:09 Red Blood Count 2.79 L, Mean Corpuscular Volume 102.5 H, Mean Corpuscular Hemoglobin 33.3 H, Mean Corpuscular Hemoglobin Concent 32.5, Red Cell Distribution Width 20.3 H, Calcium Level 9.2 HELEN HOBSON MD Jan 27, 2017 13:57
--- NOTE | 2017-01-28 00:30 | ECGEPIP ---
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 Heart rate is now slower Electronically Signed On 01-28-2017 0:30:39 EST by Guerrero Beck
[2017-01-28 06:00] VITALS: BP 148/76
[2017-01-28] MEDS: LEVOTHYROXINE 100MCG TABLET (0.1MG) PO SCH (06:01)
[2017-01-28] MEDS: METOPROLOL TART 50 MG TAB PO SCH ×4 (06:02→23:10)
[2017-01-28] MEDS: ONDANSETRON 4MG/2ML VIAL (J2405) IV PRN (06:03)
[2017-01-28] MEDS: SLF 3 ML SYR IV SCH ×3 (06:03→20:58)
[2017-01-28] MEDS: MIRALAX *UNIT DOSE* 17GM PACKET PO SCH (08:19)
[2017-01-28] MEDS: PYRIDOXINE 50 MG TAB PO SCH (08:19)
[2017-01-28] MEDS: METOCLOPRAMIDE 5 MG TAB PO SCH ×4 (08:22→20:58)
[2017-01-28] MEDS: DIGOXIN 0.125 MG TAB PO SCH (08:22)
[2017-01-28] MEDS: SPIRONOLACTONE 25 MG TAB PO SCH (08:22)
[2017-01-28] MEDS: PANTOPRAZOLE 40MG TAB (PROTONIX) PO SCH (08:22)
[2017-01-28] MEDS: ASPIRIN 81 MG ENTERIC TAB PO SCH (08:22)
[2017-01-28] MEDS: FLUTICASONE PROP 0.05% NASAL SPRAY 16 GM (FLONASE) SCH (08:23)
[2017-01-28] MEDS: ACETAMINOPHEN TAB 650MG DOSE (2X325MG) PO PRN ×2 (09:35→23:09)
[2017-01-28 14:00] VITALS: BP 133/64
[2017-01-28 22:00] VITALS: BP 144/65
[2017-01-29] MEDS: ACETAMINOPHEN TAB 650MG DOSE (2X325MG) PO PRN ×3 (04:11→12:09)
[2017-01-29] MEDS: LEVOTHYROXINE 100MCG TABLET (0.1MG) PO SCH (05:56)
[2017-01-29] MEDS: ONDANSETRON 4MG/2ML VIAL (J2405) IV PRN ×2 (05:56→14:21)
[2017-01-29] MEDS: METOPROLOL TART 50 MG TAB PO SCH ×4 (05:57→23:31)
[2017-01-29] MEDS: SLF 3 ML SYR IV SCH ×3 (05:57→21:32)
[2017-01-29 06:00] VITALS: BP 159/72
[2017-01-29] MEDS: METOCLOPRAMIDE 5 MG TAB PO SCH (07:30)
[2017-01-29] MEDS: ASPIRIN 81 MG ENTERIC TAB PO SCH (07:45)
[2017-01-29] MEDS: PANTOPRAZOLE 40MG TAB (PROTONIX) PO SCH (07:45)
[2017-01-29] MEDS: MIRALAX *UNIT DOSE* 17GM PACKET PO SCH (07:45)
[2017-01-29] MEDS: SPIRONOLACTONE 25 MG TAB PO SCH (07:45)
[2017-01-29] MEDS: DIGOXIN 0.125 MG TAB PO SCH (07:46)
[2017-01-29] MEDS: PYRIDOXINE 50 MG TAB PO SCH (07:46)
[2017-01-29] MEDS: FLUTICASONE PROP 0.05% NASAL SPRAY 16 GM (FLONASE) SCH (09:33)
[2017-01-29] MEDS ORDERED: PROMETHAZINE INJ 25 MG/ML VIAL (J2550) IV PRN (11:15)
[2017-01-29 14:00] VITALS: BP 138/64
[2017-01-30] MEDS: LEVOTHYROXINE 100MCG TABLET (0.1MG) PO SCH (05:55)
[2017-01-30] MEDS: SLF 3 ML SYR IV SCH ×4 (05:56→19:15)
[2017-01-30] MEDS: METOPROLOL TART 50 MG TAB PO SCH ×3 (05:56→17:13)
[2017-01-30 06:00] VITALS: BP 144/74
[2017-01-30] MEDS: PINK BISMUTH SUSP 524MG/30ML ORAL SYRINGE PO PRN (08:01)
[2017-01-30] MEDS: ONDANSETRON 4MG/2ML VIAL (J2405) IV PRN (08:01)
[2017-01-30] MEDS: DIGOXIN 0.125 MG TAB PO SCH (08:35)
[2017-01-30] MEDS: PANTOPRAZOLE 40MG TAB (PROTONIX) PO SCH (08:35)
[2017-01-30] MEDS: MIRALAX *UNIT DOSE* 17GM PACKET PO SCH (08:35)
[2017-01-30] MEDS: ASPIRIN 81 MG ENTERIC TAB PO SCH (08:35)
[2017-01-30] MEDS: SPIRONOLACTONE 25 MG TAB PO SCH (08:35)
[2017-01-30] MEDS: PYRIDOXINE 50 MG TAB PO SCH (08:35)
[2017-01-30] MEDS: FLUTICASONE PROP 0.05% NASAL SPRAY 16 GM (FLONASE) SCH (08:36)
[2017-01-30] MEDS: ONDANSETRON 4 MG TAB (S0181) PO PRN (12:56)
[2017-01-30] MEDS: METOCLOPRAMIDE INJ 10MG/2ML VIAL (J2765) IV SCH ×2 (14:42→22:34)
[2017-01-30] MEDS: NS 1,000 ML IV SCH (14:42)
[2017-01-31] MEDS: METOPROLOL TART 50 MG TAB PO SCH ×5 (00:05→23:34)
[2017-01-31] MEDS: NS 1,000 ML IV SCH ×2 (01:05→09:45)
[2017-01-31] MEDS: LEVOTHYROXINE 100MCG TABLET (0.1MG) PO SCH (05:08)
[2017-01-31] MEDS: METOCLOPRAMIDE INJ 10MG/2ML VIAL (J2765) IV SCH ×3 (05:24→21:41)
[2017-01-31 06:00] VITALS: BP 159/70
[2017-01-31] MEDS: MIRALAX *UNIT DOSE* 17GM PACKET PO SCH (08:07)
[2017-01-31] MEDS: ASPIRIN 81 MG ENTERIC TAB PO SCH (08:08)
[2017-01-31] MEDS: PANTOPRAZOLE 40MG TAB (PROTONIX) PO SCH (08:08)
[2017-01-31] MEDS: ACETAMINOPHEN TAB 650MG DOSE (2X325MG) PO PRN ×2 (08:08→23:34)
[2017-01-31] MEDS: FLUTICASONE PROP 0.05% NASAL SPRAY 16 GM (FLONASE) SCH (08:09)
[2017-01-31] MEDS: DIGOXIN 0.125 MG TAB PO SCH (08:09)
[2017-01-31] MEDS: SPIRONOLACTONE 25 MG TAB PO SCH (08:10)
[2017-01-31] MEDS: ONDANSETRON 4 MG TAB (S0181) PO PRN ×2 (09:42→18:54)
[2017-01-31] MEDS: PYRIDOXINE 50 MG TAB PO SCH (09:43)
[2017-01-31] MEDS: SLF 3 ML SYR IV SCH ×2 (13:14→21:41)
[2017-01-31 13:19] VITALS: BP 175/85
[2017-02-01] MEDS: LEVOTHYROXINE 100MCG TABLET (0.1MG) PO SCH (05:50)
[2017-02-01] MEDS: METOCLOPRAMIDE INJ 10MG/2ML VIAL (J2765) IV SCH ×2 (05:50→13:10)
[2017-02-01] MEDS: SLF 3 ML SYR IV SCH ×3 (05:55→22:00)
[2017-02-01] MEDS: METOPROLOL TART 50 MG TAB PO SCH ×4 (05:55→23:20)
[2017-02-01 06:00] VITALS: BP 160/67
[2017-02-01] MEDS: FLUTICASONE PROP 0.05% NASAL SPRAY 16 GM (FLONASE) SCH (09:00)
[2017-02-01] MEDS: MIRALAX *UNIT DOSE* 17GM PACKET PO SCH (09:00)
[2017-02-01] MEDS: ACETAMINOPHEN TAB 650MG DOSE (2X325MG) PO PRN ×2 (09:21→21:32)
[2017-02-01] MEDS: PANTOPRAZOLE 40MG TAB (PROTONIX) PO SCH (09:32)
[2017-02-01] MEDS: PYRIDOXINE 50 MG TAB PO SCH (09:34)
[2017-02-01] MEDS: DIGOXIN 0.125 MG TAB PO SCH (09:34)
[2017-02-01] MEDS: ASPIRIN 81 MG ENTERIC TAB PO SCH (09:35)
[2017-02-01] MEDS: SPIRONOLACTONE 25 MG TAB PO SCH (09:37)
[2017-02-01] MEDS: PINK BISMUTH SUSP 524MG/30ML ORAL SYRINGE PO PRN (14:49)
[2017-02-02] MEDS: LEVOTHYROXINE 100MCG TABLET (0.1MG) PO SCH (05:43)
[2017-02-02] MEDS: METOPROLOL TART 50 MG TAB PO SCH ×4 (05:44→23:58)
[2017-02-02] MEDS: ACETAMINOPHEN TAB 650MG DOSE (2X325MG) PO PRN ×2 (05:44→13:05)
[2017-02-02 06:00] VITALS: BP 150/70
[2017-02-02 06:37] LABS: MEAN CORPUSCULAR HEMOGLOBIN 33.5 pg (27.0-33.0); MEAN CORPUSCULAR HGB CONC 32.4 g/dl (32.0-36.5); MEAN CORPUSCULAR VOLUME 103.3 fl (80.0-96.0); RED CELL DISTRIBUTION WIDTH 21.1 % (11.5-14.5); WHITE BLOOD COUNT 2.4 10^3/uL (4.0-10.0)
[2017-02-02 06:44] LABS: PLT CLUMPS? POS FLAG; POS COUNT POS FLAG
[2017-02-02 06:48] LABS: ALBUMIN 2.8 GM/DL (3.2-5.2); ALBUMIN/GLOBULIN RATIO 0.82 (1.00-1.93); ALKALINE PHOSPHATASE 48 U/L (45-117); ALT/SGPT 22 U/L (12-78); ANION GAP 7 MEQ/L (8-16); AST/SGOT 26 U/L (7-37); BILIRUBIN,TOTAL 0.7 MG/DL (0.2-1.0); BLOOD UREA NITROGEN 9 MG/DL (7-18); CALCIUM LEVEL 8.9 MG/DL (8.8-10.2); CARBON DIOXIDE LEVEL 27 MEQ/L (21-32); CHLORIDE LEVEL 109 MEQ/L (98-107); CREATININE FOR GFR 0.92 MG/DL (0.55-1.02); GLOMERULAR FILTRATION RATE > 60.0 (>39); GLUCOSE, FASTING 151 MG/DL (83-110); POTASSIUM SERUM 4.1 MEQ/L (3.5-5.1); SODIUM LEVEL 143 MEQ/L (136-145); TOTAL PROTEIN 6.2 GM/DL (6.4-8.2)
[2017-02-02] MEDS: MIRALAX *UNIT DOSE* 17GM PACKET PO SCH (09:00)
[2017-02-02] MEDS: ASPIRIN 81 MG ENTERIC TAB PO SCH (10:09)
[2017-02-02] MEDS: DIGOXIN 0.125 MG TAB PO SCH (10:09)
[2017-02-02] MEDS: PYRIDOXINE 50 MG TAB PO SCH (10:10)
[2017-02-02] MEDS: PANTOPRAZOLE 40MG TAB (PROTONIX) PO SCH (10:10)
[2017-02-02] MEDS: SPIRONOLACTONE 25 MG TAB PO SCH (10:10)
[2017-02-02] MEDS: FLUTICASONE PROP 0.05% NASAL SPRAY 16 GM (FLONASE) SCH (10:11)
[2017-02-02] MEDS: ONDANSETRON 4 MG TAB (S0181) PO PRN ×3 (10:23→19:08)
[2017-02-02] MEDS: PINK BISMUTH SUSP 524MG/30ML ORAL SYRINGE PO PRN (10:23)
[2017-02-03] MEDS: ACETAMINOPHEN TAB 650MG DOSE (2X325MG) PO PRN ×4 (00:04→22:54)
[2017-02-03] MEDS: LEVOTHYROXINE 100MCG TABLET (0.1MG) PO SCH (05:38)
[2017-02-03] MEDS: METOPROLOL TART 50 MG TAB PO SCH ×4 (05:39→23:10)
[2017-02-03 06:00] VITALS: BP 133/66
[2017-02-03] MEDS: ONDANSETRON 4 MG TAB (S0181) PO PRN ×3 (07:29→20:05)
[2017-02-03] MEDS: PYRIDOXINE 50 MG TAB PO SCH (08:51)
[2017-02-03] MEDS: MIRALAX *UNIT DOSE* 17GM PACKET PO SCH (08:51)
[2017-02-03] MEDS: PANTOPRAZOLE 40MG TAB (PROTONIX) PO SCH (08:52)
[2017-02-03] MEDS: ASPIRIN 81 MG ENTERIC TAB PO SCH (08:52)
[2017-02-03] MEDS: FLUTICASONE PROP 0.05% NASAL SPRAY 16 GM (FLONASE) SCH (08:54)
[2017-02-03] MEDS: DIGOXIN 0.125 MG TAB PO SCH (08:54)
[2017-02-03] MEDS: SPIRONOLACTONE 25 MG TAB PO SCH (08:54)
[2017-02-03] MEDS: MOM 30ML SUSPENSION UDC PO ONE ×2 (13:31→13:43)
[2017-02-03 22:00] VITALS: BP 146/65
[2017-02-04] MEDS: ONDANSETRON 4 MG TAB (S0181) PO PRN ×3 (03:48→22:53)
[2017-02-04] MEDS: ACETAMINOPHEN TAB 650MG DOSE (2X325MG) PO PRN ×4 (03:48→22:53)
[2017-02-04 06:00] VITALS: BP 139/66
[2017-02-04] MEDS: METOPROLOL TART 50 MG TAB PO SCH ×4 (06:09→22:58)
[2017-02-04] MEDS: LEVOTHYROXINE 100MCG TABLET (0.1MG) PO SCH (06:09)
[2017-02-04] MEDS: SPIRONOLACTONE 25 MG TAB PO SCH (08:23)
[2017-02-04] MEDS: DIGOXIN 0.125 MG TAB PO SCH (08:23)
[2017-02-04] MEDS: ASPIRIN 81 MG ENTERIC TAB PO SCH (08:23)
[2017-02-04] MEDS: PYRIDOXINE 50 MG TAB PO SCH (08:23)
[2017-02-04] MEDS: PANTOPRAZOLE 40MG TAB (PROTONIX) PO SCH (08:23)
[2017-02-04] MEDS: MIRALAX *UNIT DOSE* 17GM PACKET PO SCH (08:24)
[2017-02-04] MEDS: FLUTICASONE PROP 0.05% NASAL SPRAY 16 GM (FLONASE) SCH (08:24)
[2017-02-04] MEDS: CALCIUM CARBONATE 500 MG CHEW U/D PO PRN (13:15)
[2017-02-05] MEDS: ACETAMINOPHEN TAB 650MG DOSE (2X325MG) PO PRN ×2 (03:13→14:52)
[2017-02-05] MEDS: LEVOTHYROXINE 100MCG TABLET (0.1MG) PO SCH ×2 (05:56→08:59)
[2017-02-05] MEDS: ONDANSETRON 4 MG TAB (S0181) PO PRN ×2 (05:56→07:51)
[2017-02-05] MEDS: METOPROLOL TART 50 MG TAB PO SCH ×5 (05:56→23:42)
[2017-02-05 06:00] VITALS: BP 133/63
[2017-02-05] MEDS: MIRALAX *UNIT DOSE* 17GM PACKET PO SCH (08:53)
[2017-02-05] MEDS: FLUTICASONE PROP 0.05% NASAL SPRAY 16 GM (FLONASE) SCH (08:54)
[2017-02-05] MEDS: PYRIDOXINE 50 MG TAB PO SCH (08:57)
[2017-02-05] MEDS: PANTOPRAZOLE 40MG TAB (PROTONIX) PO SCH (08:57)
[2017-02-05] MEDS: ASPIRIN 81 MG ENTERIC TAB PO SCH (08:57)
[2017-02-05] MEDS: SPIRONOLACTONE 25 MG TAB PO SCH (08:58)
[2017-02-05] MEDS: DIGOXIN 0.125 MG TAB PO SCH (08:58)
[2017-02-05] MEDS: CALCIUM CARBONATE 500 MG CHEW U/D PO PRN (11:05)
[2017-02-05] MEDS: ONDANSETRON 4MG/2ML VIAL (J2405) IV PRN ×2 (13:21→17:44)
[2017-02-06] MEDS: METOPROLOL TART 50 MG TAB PO SCH ×4 (05:41→23:56)
[2017-02-06] MEDS: LEVOTHYROXINE 100MCG TABLET (0.1MG) PO SCH (05:41)
[2017-02-06 06:00] VITALS: BP 123/65
[2017-02-06 06:16] LABS: MEAN CORPUSCULAR HEMOGLOBIN 33.3 pg (27.0-33.0); MEAN CORPUSCULAR VOLUME 104.2 fl (80.0-96.0); PLATELET COUNT, AUTOMATED 302 10^3/uL (150-450)
[2017-02-06 06:39] LABS: POS COUNT POS FLAG
[2017-02-06 06:40] LABS: PLT CLUMPS? POS FLAG
[2017-02-06 06:43] LABS: ALBUMIN 3.5 GM/DL (3.2-5.2); BILIRUBIN,TOTAL 1.1 MG/DL (0.2-1.0); CALCIUM LEVEL 9.3 MG/DL (8.8-10.2); CREATININE FOR GFR 1.26 MG/DL (0.55-1.02); GLOMERULAR FILTRATION RATE 43.7 (>39); POTASSIUM SERUM 4.2 MEQ/L (3.5-5.1)
[2017-02-06] MEDS: FLUTICASONE PROP 0.05% NASAL SPRAY 16 GM (FLONASE) SCH (09:00)
[2017-02-06] MEDS: PYRIDOXINE 50 MG TAB PO SCH (10:08)
[2017-02-06] MEDS: PANTOPRAZOLE 40MG TAB (PROTONIX) PO SCH (10:09)
[2017-02-06] MEDS: SPIRONOLACTONE 25 MG TAB PO SCH (10:09)
[2017-02-06] MEDS: ASPIRIN 81 MG ENTERIC TAB PO SCH (10:09)
[2017-02-06] MEDS: DIGOXIN 0.125 MG TAB PO SCH (10:10)
[2017-02-06] MEDS: MIRALAX *UNIT DOSE* 17GM PACKET PO SCH (10:10)
[2017-02-06] MEDS: ACETAMINOPHEN TAB 650MG DOSE (2X325MG) PO PRN (11:13)
--- NOTE | 2017-02-06 12:04 | IPNPDOC ---
Subjective Date Seen The patient was seen on 02/06/17. Subjective Chief Complaint/HPI The patient is a 76-year-old female admitted with a reason for visit of Atrial Fibrillation With Rvr. General: Reports: Fatigue, Malaise, Normal Appetite, Denies: Chills, Night Sweats Constitutional: Denies: Chills, Fever Skin: Denies: Rash, Lesions Pulmonary: Denies: Dyspnea, Cough, Pleuritic Chest Pain Cardiovascular: Denies: Chest Pain, Palpitations, Orthopnea, Edema, Lt Headedness Gastrointestinal: Denies: Nausea, Vomiting, Abdominal Pain Neurological: Denies: Weakness Psych: Reports: Other Psych (pt does not appear to want to answer questions on physical exam, quiet responses, seems fatigued), Denies: Mood Normal Objective Physical Examination General Exam: Positive: Alert, No Acute Distress, Negative: Cooperative (appears fatigued, wants to sleep and not talk) Eye Exam: Positive: Conjunctiva & lids normal, EOMI ENT Exam: Positive: Atraumatic, Mucous membr. moist/pink Neck Exam: Negative: JVD Chest Exam: Positive: Clear to auscultation, Normal air movement Heart Exam: Positive: Rate Normal, Normal S1, Normal S2, Negative: Murmurs, Rubs Abdomen Exam: Positive: Normal bowel sounds, Soft, Tenderness (tender diffuse throughout with light palpitation), Negative: Hepatospenomegaly, Mass Extremity Exam: Positive: Normal pulses, Negative: Cyanosis, Edema, Tenderness, Swelling Neuro Exam: Positive: Normal Speech Psych Exam: Positive: Oriented x 3 Assessment /Plan Assessment 76 y/o female who presented to ED on 01/23/17 with shakiness, fatigue and found to be in A. fib RVR. 1. Atrial Fibrillation with RVR, resolved -Rate Controlled on Metoprolol q6h and Digoxin .125 mg, rate today 104 irregular -Not on any AC 2/2 to h/o GI please and thrombocytopenia -Thyroid profile wnl 2.Hx of Myelodysplastic Syndrome. -Peripheral Smear notable for scattered circulating blasts on this admission -The case was discussed with Dr. Castellon by colleague about the possible progression to acute leukemia given circulating blasts---He stated that the patient is not a candidate for induction chemo, and consideration to palliative care should be given if the patient's condition worsens 3. B6 deficiency -Cont Vit supplementation 4.GERD/vomiting -Will continue home regimen. -pt doing well with IV zofran therapy for n/v 5. Hypothyroidism -Cont Levothyroxine 6. Hx of CAD -C/w ASA, Metoprolol 7. Generalized Weakness 2/2 to hematologic disease vs progressive muscular deconditioning -No signs of infection, or acute neurological event -PT has cleared patient -PFS on board for possible placement, apparently the patient does not want to go home as she cannot and does not want to take care of her daughter at home 8. Deep venous thrombosis prophylaxis -TEDs/SCDs 9. Abdominal discomfort on physical exam - pt had one BM yesterday, will continue to monitor for now, no diarrhea, nor elevated white count or temperature -continue to monitor Dispo- Pt is medically optimized. She has been cleared by PT. The patient will continue to be ALC Status. Plan/VTE VTE Prophylaxis Ordered?: Yes VS, I&O, 24H, Fishbone Vital Signs/I&O Vital Signs Date Time Temp Pulse Resp B/P (MAP) Pulse Ox O2 Delivery O2 Flow Rate FiO2 02/06/17 10:10 104 02/06/17 08:00 Room Air 02/06/17 06:00 98.0 18 123/65 (84) 90 Laboratory Data 24H LABS Laboratory Tests 2 02/06/17 06:01: Nucleated Red Blood Cells % (auto) 21.7H, Anion Gap 10, Glomerular Filtration Rate 43.7, Blood Urea Nitrogen 16, Creatinine 1.26H, Sodium Level 143, Potassium Level 4.2, Chloride Level 106, Carbon Dioxide Level 27, Calcium Level 9.3, Aspartate Amino Transf (AST/SGOT) 39H, Alanine Aminotransferase (ALT/SGPT) 22, Alkaline Phosphatase 63, Total Bilirubin 1.1H, Total Protein 7.0, Albumin 3.5, Albumin/Globulin Ratio 1.00 CBC/BMP Laboratory Tests 02/06/17 06:01 Red Blood Count 2.88 L, Mean Corpuscular Volume 104.2 H, Mean Corpuscular Hemoglobin 33.3 H, Mean Corpuscular Hemoglobin Concent 32.0, Red Cell Distribution Width 22.0 H, Calcium Level 9.3, Aspartate Amino Transf (AST/SGOT) 39 H, Alanine Aminotransferase (ALT/SGPT) 22, Alkaline Phosphatase 63, Total Bilirubin 1.1 H, Total Protein 7.0, Albumin 3.5 GME ATTESTATION GME ATTESTATION My faculty preceptor for this patient encounter was physically present during the encounter and was fully available. All aspects of the patient interview, examination, medical decision making process, and medical care plan development were reviewed and approved by the faculty preceptor. The faculty preceptor is aware and concurs with the plan as stated in the body of this note and will attest to such by his/her cosignature. MARIAH GUERRIER DO Feb 06, 2017 12:04
[2017-02-07] MEDS: LEVOTHYROXINE 100MCG TABLET (0.1MG) PO SCH (05:54)
[2017-02-07] MEDS: METOPROLOL TART 50 MG TAB PO SCH ×3 (05:54→16:54)
[2017-02-07 06:00] VITALS: BP 142/66
[2017-02-07] MEDS: PYRIDOXINE 50 MG TAB PO SCH (08:16)
[2017-02-07] MEDS: MIRALAX *UNIT DOSE* 17GM PACKET PO SCH (08:16)
[2017-02-07] MEDS: ASPIRIN 81 MG ENTERIC TAB PO SCH (08:16)
[2017-02-07] MEDS: SPIRONOLACTONE 25 MG TAB PO SCH (08:16)
[2017-02-07] MEDS: PANTOPRAZOLE 40MG TAB (PROTONIX) PO SCH (08:16)
[2017-02-07] MEDS: DIGOXIN 0.125 MG TAB PO SCH (08:17)
[2017-02-07] MEDS: FLUTICASONE PROP 0.05% NASAL SPRAY 16 GM (FLONASE) SCH (08:17)
[2017-02-07 16:54] VITALS: BP 198/88
[2017-02-07 20:45] VITALS: BP 167/70
--- NOTE | 2017-02-07 21:24 | IPNPDOC ---
Text Note Date of Service The patient was seen on 02/07/17. 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 Updated most in chart. VS,Fishbone, I+O VS, Fishbone, I+O Vital Signs Date Time Temp Pulse Resp B/P (MAP) Pulse Ox O2 Delivery O2 Flow Rate FiO2 02/07/17 20:45 100.4 115 28 167/70 (102) 02/07/17 09:50 Room Air 02/07/17 06:00 93 I&O- Last 24 Hours up to 6 AM 02/08/17 06:00 Intake Total 180 ml Output Total 0 ml Balance 180 ml COY JURADO MD Feb 07, 2017 21:23
[2017-02-07] MEDS ORDERED: PIPERACILLIN/TAZOBACTAM SOD 3.375 GM in APPROPRIATE DILUENT 1 EA IV SCH (22:00)
[2017-02-08] MEDS ORDERED: ONDANSETRON 4MG/2ML VIAL (J2405) IV ONE (06:30)
[2017-02-08] MEDS ORDERED: SCOPOLAMINE 1.5 MG TRANSDERMAL TOP SCH (06:30)
--- NOTE | 2017-02-08 08:06 | REP ---
Clinical: Sepsis . Comparison: 01/24/2017 . Findings: The mediastinum and cardiac silhouette are stable and within normal limits for portable technique. Elevation of the right hemidiaphragm is again noted. The lung stone are clear without acute consolidation, effusion, or pneumothorax. Skeletal structures are intact. Impression: No acute cardiopulmonary process appreciated. Signed by Gil Sabillon MD 02/08/2017 07:58 A
--- NOTE | 2017-02-08 22:00 | DSES ---
DATE OF ADMISSION: 01/23/2017 DATE OF DISCHARGE/: 02/08/2017 at 7:00 a.m. CONSULTANTS: None. PROCEDURES: None. DISCHARGE DIAGNOSES: 1. Atrial fibrillation with rapid ventricular response (RVR). 2. Mild dysplastic syndrome. 3. Gastroesophageal reflux disease (GERD). 4. Hypothyroidism. 5. Coronary artery disease. 6. Hypertension. 7. Pancytopenia. 8. Non sustained ventricular tachycardia HOSPITALIZATION COURSE: The patient is a 76-year-old female, presented to [facility] on 01/23/2017 for generalized complaint, including not feeling well with generalized weakness and nausea. The patient was admitted to the progressive care unit (PCU) based on patient's clinical severity. Later when the pathology service was available, peripheral smear was ordered on 01/25/2017, showed scattered circulating blasts. Due to concern for possible progression to acute leukemia, the case was discussed with on-call oncologist, Dr. Castellon, and the patient was determined not to be a candidate for induction chemotherapy and recommended considering palliative care if the patient starts to have worsening of clinical presentation. The findings, the prognosis and the plan was discussed with the patient and the patient's family. Due to some social issues, the patient was not able to discharge, and the patient was transferred to alternate level of care (ALC) status. The patient continued to have her generalized complaints, and the patient monitored on the daily labs. Later, the patient continued to show persistent symptoms, and the laboratory started to suggest some acute changes to the patient's blood disorders. New set of labs, including peripheral smear was ordered. However, on 02/07/2017, in the evening time, the patient started having acute deterioration of her condition. Findings were discussed with the patient and the patient's family. Later, they reached a decision for comfort measures only, and on 02/08/2017, the patient at approximately 7:00 a.m. DISCHARGE TIME: Less than 30 minutes. [facility] CENTERMikey
== END 2017-02-08 07:02 | disposition expired | DRG 835 ==
LOC: M ED 08:54 → EDBD 08:54 → M ED INP 12:57 → M PCU 14:16 → M MSPAV 01-27 17:33
PROVIDERS: ADMIT Internal Medicine; ATTEND Internal Medicine
DX: C95.00 Acute leukemia of unspecified cell type not having achieved remission (principal); I47.2 Ventricular tachycardia; D61.818 Other pancytopenia; Z51.5 Encounter for palliative care; I48.91 Unspecified atrial fibrillation; I10 Essential (primary) hypertension; I25.10 Atherosclerotic heart disease of native coronary artery without angina pectoris; E03.9 Hypothyroidism, unspecified; K21.9 Gastro-esophageal reflux disease without esophagitis; D46.9 Myelodysplastic syndrome, unspecified; Z90.49 Acquired absence of other specified parts of digestive tract; Z88.5 Allergy status to narcotic agent; Z88.8 Allergy status to other drugs, medicaments and biological substances; Z79.82 Long term (current) use of aspirin; Z79.899 Other long term (current) drug therapy